=== PATIENT | female | born 1970 | race Caucasian/White ===

== ENCOUNTER 2016-05-11 10:07 | Emergency (ER) | payer BC ==
[2016-05-11 11:18] VITALS: BP 127/81
--- NOTE | 2016-05-11 11:35 | UC ---
Complaint Female HPI - HPI Summary HPI Summary: complaint of pain with urination that started yesterday today noticed some blood in her urine this morning increase in frequency and urgency had ketones in her urine this morning BS has been low recently-glucose was 130 today hasn't taken any medication for symptoms denies fever back pain or abdominal pain - History Of Current Complaint Chief Complaint: UCGU Stated Complaint: URINARY COMPLAINT-DIABETIC Time Seen by Provider: 05/11/16 11:27 Hx Obtained From: Patient Hx Last Menstrual Period: 03/10/1999 - Allergies/Home Medications Allergies/Adverse Reactions: Allergies Allergy/AdvReac Type Severity Reaction Status Date / Time Ciprofloxacin [From Cipro] Allergy Intermediate Hives Verified 05/11/16 11:18 Penicillins Allergy Intermediate Hives Verified 05/11/16 11:18 PMH/Surg Hx/FS Hx/Imm Hx Previously Healthy: No - controlled DM Endocrine History Of: Reports: Diabetes - type I, Thyroid Disease - thyroidectomy for cancer., Hypothyroidism - S/P THYROIDECTOMY DUE TO CANCER Denies: Hyperthyroidism, Dyslipidemia Cardiovascular History Of: Denies: Cardiac Disorders, Hypertension, Pacemaker/ICD, Myocardial Infarction , Congestive Heart Failure, Atrial Fibrillation, Deep Vein Thrombosis, Bleeding Disorders Respiratory History Of: Denies: COPD, Asthma, Bronchitis, Pneumonia, Pulmonary Embolism GI/ History Of: Denies: Gastroesophageal Reflux, Ulcer, Gastrointestinal Bleed, Gall Bladder Disease, Kidney Stones, Diverticulitis, Renal Disease, Urosepsis Neurological History Of: Reports: Migraine - PAST Denies: TIA, CVA, Dementia, Seizures Psychological History Of: Reports: Depression - ON MEDS Denies: Anxiety, Bipolar Disorder, Schizophrenia, Post Traumatic Stress Disorder Cancer History Of: Denies: Lung Cancer, Colorectal Cancer, Breast Cancer, Prostate Cancer, Cervical Cancer Other History Of: Negative For: HIV, Hepatitis B, Hepatitis C, Anticoagulant Therapy - Surgical History Surgical History: Yes Surgery Procedure, Year, and Place: L5 S1 Micro Diskectomy, 2006, 2012 [facility]. Thyroidectomy, 2008, [place]. Hysterectomy, 1999, [place], TOTAL OF 4 BACK SURGERIES - Family History Known Family History: Positive: None, Cardiac Disease, Hypertension, Diabetes - Social History Occupation: Employed Full-time Lives: With Family Alcohol Use: Rare Substance Use Type: None Smoking Status (MU): Former Smoker Type: Cigarettes Amount Used/How Often: 1/2 ppd Length of Time of Smoking/Using Tobacco: quit in 1999 Have You Smoked in the Last Year: No When Did the Patient Quit Smoking/Using Tobacco: 02/08/16 Household Exposure Type: Cigarettes Review of Systems Constitutional: Negative Skin: Negative Eyes: Negative ENT: Negative Respiratory: Negative Cardiovascular: Negative Gastrointestinal: Negative Genitourinary: Dysuria, Hematuria, Frequency, Urgency Motor: Negative Neurovascular: Negative Musculoskeletal: Negative Neurological: Negative Psychological: Negative All Other Systems Reviewed And Are Negative: Yes Physical Exam Triage Information Reviewed: Yes Appearance: No Pain Distress, Well-Nourished Vital Signs: Initial Vital Signs Temp 99.4 F 05/11/16 11:12 Pulse 111 05/11/16 11:12 Resp 16 05/11/16 11:12 BP 127/81 05/11/16 11:12 Pulse Ox 98 05/11/16 11:12 Vital Signs Reviewed: Yes Eyes: Positive: Conjunctiva Clear ENT: Positive: Pharynx normal, Pharyngeal erythema, Nasal congestion Neck: Positive: No Lymphadenopathy Respiratory: Positive: Lungs clear, Normal breath sounds, No respiratory distress Cardiovascular: Positive: No Murmur, Pulses Normal, Tachycardia Abdomen Description: Positive: Nontender, No Organomegaly, Soft. Negative: CVA Tenderness (R), CVA Tenderness (L), Distended, Guarding Bowel Sounds: Positive: Present Musculoskeletal: Positive: No Edema Neurological: Positive: Alert Psychological Exam: Normal Skin Exam: Normal Complaint Female Dx - Course Course Of Treatment: exam completed. will treat for UTI with closes PCP followup d/t DM- glucose in urine but pt is on invokana - Differential Dx/Diagnosis Differential Diagnosis/HQI/PQRI: Ureteral Stone, Urinary Tract Infection Provider Diagnoses: UTI Discharge - Discharge Plan Condition: Stable Disposition: HOME Prescriptions: Phenazopyridine TAB* [Pyridium TAB*] 100 mg PO TID #9 tab Sulfamethox/Trimethoprim DS* [Bactrim DS 800/160 TAB*] 1 tab PO BID #10 tab Patient Education Materials: Urinary Tract Infection in Women (ED) Referrals: Gelacio Wiseman MD [Primary Care Provider] - Additional Instructions: Start antibiotic and pyridium as directed Increase fluids and rest Take acetaminophen for fever or pain please make followup appt with your primary care physician in 2-3 days for recheck of your condition Please review your discharge instructions. If your symptoms do not improve please call your primary care provider or return to urgent care
== END 2016-05-11 11:47 | disposition home or self-care (01) ==
LOC: UCCORT 10:07
DX: N39.0 Urinary tract infection, site not specified (principal); E10.9 Type 1 diabetes mellitus without complications; Z88.1 Allergy status to other antibiotic agents; Z88.0 Allergy status to penicillin; Z87.891 Personal history of nicotine dependence
CPT/HCPCS: 87086; 99212; G0463

== ENCOUNTER 2016-11-04 14:13 | Emergency (ER) | payer BC ==
[2016-11-04 14:30] VITALS: BP 164/98
[2016-11-04] MEDS ORDERED: Aspirin Low Dose CHEW TAB* 81 MG PO ONE (14:32)
[2016-11-04] MEDS ORDERED: NS 0.9% 1000 ML* 1,000 ML IV ONE (14:32)
[2016-11-04] MEDS ORDERED: Aspirin Low Dose CHEW TAB* 81 MG ONE (14:35)
--- NOTE | 2016-11-04 14:40 | UC ---
Zahira Gautam Alfonso, scribed for Britton Aguilar MD on 11/04/16 at 1433 . Dizzy HPI HPI Summary: This patient is a 46 year old F presenting to [facility] with a chief complaint of dizziness since last night. The CC is described as lightheadedness. The patient rates the current pain 0/10 in severity. Symptoms aggravated by exertion. Symptoms alleviated by nothing. Patient reports CP (tightness), SOB, calf pain ( left), recent weight loss, and syncope (last night). She walked 5 miles yesterday. PMHx of DM type 1. Patients medications reviewed this visit. - History Of Current Complaint Stated Complaint: dizziness Hx Obtained From: Patient Onset/Duration: Sudden Onset, Lasting Days, Still Present Timing: Constant Severity Initially: Moderate Severity Currently: Moderate Pain Intensity: 0 Pain Scale Used: 0-10 Numeric Character: Lightheaded Aggravating Factor(s): Exertion Alleviating Factor(s): Nothing Associated Signs And Symptoms: Positive: Chest Pain, SOB - Allergies/Home Medications Allergies/Adverse Reactions: Allergies Allergy/AdvReac Type Severity Reaction Status Date / Time Ciprofloxacin [From Cipro] Allergy Intermediate Hives Verified 11/04/16 14:21 Penicillins Allergy Intermediate Hives Verified 11/04/16 14:21 PMH/Surg Hx/FS Hx/Imm Hx Endocrine History: Diabetes - type 1 Other History Of: Negative For: HIV, Hepatitis B, Hepatitis C, Anticoagulant Therapy - Surgical History Surgical History: Yes Surgery Procedure, Year, and Place: L5 S1 Micro Diskectomy, 2006, 2011 [facility]. Thyroidectomy, 2008, [place]. Hysterectomy, 1999, [place], TOTAL OF 4 BACK SURGERIES - Family History Known Family History: Positive: Cardiac Disease, Hypertension, Diabetes - Social History Alcohol Use: Rare Substance Use Type: None Smoking Status (MU): Current Some Day Smoker Type: Cigarettes Amount Used/How Often: 1/2 ppd Length of Time of Smoking/Using Tobacco: quit in 1999 Have You Smoked in the Last Year: No When Did the Patient Quit Smoking/Using Tobacco: 02/08/16 Household Exposure Type: Cigarettes Review of Systems Respiratory: Shortness Of Breath Cardiovascular: Chest Pain Gastrointestinal: Other - Recent weight loss Musculoskeletal: Other: - Calf pain (left) Neurological: Other - Dizziness and syncope All Other Systems Reviewed And Are Negative: Yes Physical Exam Triage Information Reviewed: Yes Vital Signs: Initial Vital Signs Temp 98.6 F 11/04/16 14:23 Pulse 110 11/04/16 14:23 Resp 18 11/04/16 14:23 BP 164/98 11/04/16 14:23 Pulse Ox 100 11/04/16 14:23 Vital Signs Reviewed: Yes - Additional Comments The patient is well-nourished in no acute distress and in no acute pain. The skin is warm and dry and skin color reflects adequate perfusion. HEENT: The head is normocephalic and atraumatic. The pupils are equal and reactive. The conjunctivae are clear and without drainage. Nares are patent and without drainage. Mouth reveals moist mucous membranes and the throat is without erythema and exudate. The external ears are intact. The ear canals are patent and without drainage. The tympanic membranes are intact. Neck is supple with full range of motion and non-tender. There are no carotid bruits. There is no neck vein distension. Respiratory: Chest is non-tender. Lungs are clear to auscultation and breath sounds are symmetrical and equal. Cardiovascular: Heart is tachycardic. There is no murmur or rub auscultated. Pulses are symmetrical and equal. Abdomen: The abdomen is soft and non-tender. Musculoskeletal: There is no back pain noted. Extremities are non-tender with full range of motion. There is good capillary refill. There is no calf tenderness elicited. Left calf is slightly larger than right calf. Neurological: Patient is alert and oriented to person, place and time. The patient has symmetrical motor strength in all four extremities. Cranial nerves are grossly intact. Psychiatric: The patient has an appropriate affect. Diagnostics - EKG Cardiac Rate: Tachycardia - BPM 106 Cardiac Rhythm: Sinus: Normal - 1409. Sinus Tach. Flipped T-waves in V2-V3 new from 09/03/14. Dizzy Course/Dx - Course Course Of Treatment: This patient is a 46 year old F presenting to [facility] with a chief complaint of dizziness since last night. The CC is described as lightheadedness. The patient rates the current pain 0/10 in severity. Symptoms aggravated by exertion. Symptoms alleviated by nothing. Patient reports CP ( tightness), SOB, calf pain (left), recent weight loss, and syncope (last night) . She walked 5 miles yesterday. PMHx of DM type 1. Patients medications reviewed this visit. An EKG reveals Sinus tachycardia. She is tachycardia with subtle changes from prior EKG. She has CP and dizziness. She has FHx of CAD. Patient will be transferred by ambulance to [facility] with follow up from ED physician. The patient is agreeable with this plan. - Differential Dx/Diagnosis Differential Diagnosis/HQI/PQRI: Anxiety, Coronary Artery Disease, Dysrhythmia, Hypovolemia, Other - pe, mi, hyperglycemia Provider Diagnoses: chest pain, sob, hyperglycemia Discharge - Discharge Plan Condition: Guarded Disposition: TRANS HIGHER LVL OF CARE FAC Discharge Disposition Comment: [facility] [place] [facility]Y [facility]PT BY AMBULANCE. Referrals: Gelacio Wiseman MD [Primary Care Provider] - The documentation as recorded by the Zahira thornton Alfonso accurately reflects the service I personally performed and the decisions made by me, Britton Aguilar MD.
== END 2016-11-04 15:05 | disposition short-term general hospital (02) ==
LOC: UCEAST 14:13
DX: R07.9 Chest pain, unspecified (principal); R06.02 Shortness of breath; E10.65 Type 1 diabetes mellitus with hyperglycemia; Z88.3 Allergy status to other anti-infective agents; Z88.0 Allergy status to penicillin; Z87.891 Personal history of nicotine dependence
CPT/HCPCS: 93005; 96360; 99213; A9270-GY; G0463

== ENCOUNTER 2016-11-04 15:30 | Emergency (ER) | payer BC ==
[2016-11-04] MEDS ORDERED: NS 0.9% 1000 ML* 1,000 ML IV ONE (17:15)
[2016-11-04 17:34] LABS: Hematocrit 44 % (35-47); Hemoglobin 14.4 g/dl (12.0-16.0); Mean Corpuscular HGB Conc 32 g/dl (31-36); Mean Corpuscular Hemoglobin 29 pg (27-31); Mean Corpuscular Volume 88 fL (80-97); Mean Platelet Volume 10 um3 (7.4-10.4); Red Blood Count 5.03 10^6/ul (4.0-5.4); Red Cell Distribution Width 13 % (10.5-15); White Blood Count 9.7 10^3/ul (3.5-10.8)
[2016-11-04 17:37] LABS: Urine Bilirubin Negative (Negative); Urine Glucose 3+(>=500 mg/dL) (Negative); Urine Nitrite Negative (Negative)
[2016-11-04 17:48] LABS: ALT 18 U/L (7-52); AST 17 U/L (13-39); Albumin 4.2 g/dL (3.2-5.2); Alkaline Phosphatase 130 U/L (34-104); Anion Gap 7 mmol/L (2-11); BUN/Creatinine Ratio 26.2 (8-20); Blood Urea Nitrogen 22 mg/dL (6-24); C Reactive Protein 4.11 mg/L (< 5.00); CO2 Carbon Dioxide 26 mmol/L (22-32); Calcium 10.3 mg/dL (8.6-10.3); Chloride 100 mmol/L (101-111); Creatine Kinase 124 U/L (10-223); EGFR African American 93.1 (>60); EGFR Non-African American 72.4 (>60); Globulin 2.9 g/dL (2-4); Glucose 177 mg/dL (70-100); Lipase 26 U/L (11.0-82.0); Potassium 3.7 mmol/L (3.5-5.0); Sodium 133 mmol/L (133-145); Total Protein 7.1 g/dL (6.4-8.9)
[2016-11-04 17:57] LABS: TSH (Thyroid Stimulating Horm) < 0.03 mcIU/mL (0.34-5.60)
--- NOTE | 2016-11-04 18:11 | RAD ---
Indication: Lightheadedness. Single frontal view of the chest performed at 1725 hours was reviewed. Comparison is made with previous exam dated February 06, 2012. No mediastinal shift is noted. Heart is of normal size and configuration. Lung hudson appear clear. IMPRESSION: NO ACTIVE CARDIOPULMONARY DISEASE IS NOTED.
[2016-11-04] MEDS ORDERED: Ibuprofen TAB* 600 MG PO ONE (18:36)
[2016-11-04 19:35] VITALS: BP 112/70
--- NOTE | 2016-11-04 19:39 | ED ---
Lianna Gautam Thomas, scribed for Dru Ann MD on 11/04/16 at 1650 . Dizziness - HPI Summary HPI Summary: The pt is a 46 y/o F [place] [facility] c/o intermittent dizziness that began yesterday. Each episode lasts 20-30 seconds. She had a few episodes of dizziness today. The dizziness is characterized as near-syncope. The dizziness is aggravated and alleviated by nothing. There is no known factor that causes this dizziness. Pt additionally c/o bilateral temporal NIX (4/10), palpitations characterized as racing heartbeat, chest congestion. The patient has treated the NIX with ibuprofen prior to arrival. On exertion, the patient also notes chest pressure, although she denies CP in the ED. Pt denies N/V/D, rhinorrhea, cough, dysuria, hematuria, flank pain, abd pain, and SOB. She reports that her blood glucose measurements in the last couple of days have been pretty good. She has been able to drink as per normal. She is normally 120/80, but at initial triage her BP is 168/90. - History Of Current Complaint Chief Complaint: EDDizziness Stated Complaint: CHEST PAIN/DIZZINESS Time Seen by Provider: 11/04/16 16:37 Hx Obtained From: Patient Onset/Duration: Still Present Timing: Intermittent Episode Lasting - 20-30 seconds Character: Lightheaded - near-syncope Aggravating Factor(s): Nothing Alleviating Factor(s): Nothing Associated Signs And Symptoms: Positive: Palpitations - racing heart, Other: - POS: bilateral temporal NIX (4/10), chest congestion, "chest pressure" on exertion; NEG: rhinorrhea, cough, dysuria, hematuria, flank pain, abd pain. Negative: Nausea, Vomiting, Diarrhea, SOB, Fever - Allergies/Home Medications Allergies/Adverse Reactions: Allergies Allergy/AdvReac Type Severity Reaction Status Date / Time Ciprofloxacin [From Cipro] Allergy Intermediate Hives Verified 11/04/16 14:21 Penicillins Allergy Intermediate Hives Verified 11/04/16 14:21 PMH/Surg Hx/FS Hx/Imm Hx Previously Healthy: No Endocrine/Hematology History: Reports: Hx Diabetes - type I, Hx Thyroid Disease - THYROID CANCER Denies: Hx Anticoagulant Therapy Cardiovascular History: Denies: Hx Congestive Heart Failure, Hx Deep Vein Thrombosis, Hx Hypertension , Hx Myocardial Infarction, Hx Pacemaker/ICD, Other Cardiovascular Problems/ Disorders Respiratory History: Denies: Hx Asthma, Hx Chronic Obstructive Pulmonary Disease (COPD), Hx Lung Cancer, Hx Pneumonia, Hx Pulmonary Embolism, Other Respiratory Problems/ Disorders GI History: Denies: Hx Gall Bladder Disease, Hx Gastrointestinal Bleed, Hx Ulcer, Hx Urosepsis, Other GI Disorders History: Denies: Hx Kidney Stones, Hx Renal Disease Sensory History: Reports: Hx Contacts or Glasses - GLASSES Denies: Hx Hearing Aid Opthamlomology History: Reports: Hx Contacts or Glasses - GLASSES Neurological History: Reports: Hx Migraine - PAST Denies: Hx Dementia, Hx Seizures, Hx Transient Ischemic Attacks (TIA), Other Neuro Impairments/Disorders Psychiatric History: Reports: Hx Depression - ON MEDS Denies: Hx Anxiety, Hx Panic Disorder, Hx Schizophrenia, Hx Bipolar Disorder - Cancer History Cancer Type, Location and Year: thyroid 2009 - Surgical History Surgery Procedure, Year, and Place: L5 S1 Micro Diskectomy, 2006, 2011 [facility] Thyroidectomy, 2008, [place]. Hysterectomy, 1999, [place], TOTAL OF 4 BACK SURGERIES Hx Anesthesia Reactions: No Infectious Disease History: No Infectious Disease History: Denies: Hx Clostridium Difficile, Hx Hepatitis, Hx Human Immunodeficiency Virus (HIV), Hx of Known/Suspected MRSA, Hx Shingles, Hx Tuberculosis, Hx Known/ Suspected VRE, Hx Known/Suspected VRSA, History Other Infectious Disease, Traveled Outside the [place] in Last 30 Days - Family History Known Family History: Positive: Cardiac Disease, Hypertension, Diabetes - Social History Alcohol Use: Rare Substance Use Type: Reports: None Smoking Status (MU): Current Some Day Smoker Type: Cigarettes Amount Used/How Often: 1/2 ppd Length of Time of Smoking/Using Tobacco: quit in 1999 Have You Smoked in the Last Year: No Review of Systems Negative: Fever, Chills Positive: Palpitations - racing hearbeat, Other - POS: "chest pressure" on exertion Positive: Other - POS: chest congestion Neurological: Other - POS: dizziness characterized as near-syncope Positive: Headache - bilateral temporal, 4/10 All Other Systems Reviewed And Are Negative: Yes Physical Exam Vital Signs On Initial Exam: Initial Vitals Temp Pulse Resp BP Pulse Ox 97.9 F 95 16 168/90 97 11/04/16 15:39 11/04/16 15:39 11/04/16 15:39 11/04/16 15:39 11/04/16 15:39 - [place] Coma Scale Coma Scale Total: 15 Diagnostics - Vital Signs Vital Signs Temp Pulse Resp BP Pulse Ox 11/04/16 16:00 91 13 149/78 94 11/04/16 15:41 98 15 97 11/04/16 15:39 97.9 F 95 16 168/90 97 - Laboratory Lab Results: Lab Results 11/04/16 Range/Units 16:20 POC Glucose (mg/dL) 58 L (70-100) mg/dL Result Diagrams: 11/04/16 14:45 11/04/16 14:45 Lab Statement: Any lab studies that have been ordered have been reviewed, and results considered in the medical decision making process. - Radiology CXR Xray Interpretation: No Acute Changes - no active cardiopulmonary disease is noted Radiology Interpretation Completed By: Radiologist Dizzy Course/Dx - Course Assessment/Plan: The pt is a 46 y/o F [place] [facility] c/o intermittent dizziness that began yesterday. Each episode lasts 20-30 seconds. She had a few episodes of dizziness today. The dizziness is characterized as near-syncope. The dizziness is aggravated and alleviated by nothing. There is no known factor that causes this dizziness. Pt additionally c/o bilateral temporal NIX (06/17), palpitations characterized as racing heartbeat, chest congestion. The patient has treated the NIX with ibuprofen prior to arrival. On exertion, the patient also notes chest pressure, although she denies CP in the ED. Pt denies N/V/D, rhinorrhea, cough, dysuria, hematuria, flank pain, abd pain, and SOB. She reports that her blood glucose measurements in the last couple of days have been pretty good. She has been able to drink as per normal. She is normally 120/80, but at initial triage her BP is 168/90. In the ED course the patient was given ibuprofen and IV fluids. Bloodwork shows chloride 100, Glucose 177, AlkPhos 130, CKMB 6.4, TSH less than 0.03. UA shows 3+ glucose. CXR reveals no active cardiopulmonary disease. ED physician has reviewed this radiology report and agrees. DISCUSSED RESULTS WITH PATIENT TO INCLUDE LOW TSH. PATIENT THEN TOLD ME SHE HAS BEEN TAKING EXTRA LEVOTHYROXINE; SHE HAD RUN OUT OF LEVOTHYROXINE AND WHEN SHE SINCE SHE GOT THE RX FILLED, SHE HAS BEEN TAKING DOUBLE THE DOSAGE. SHE WILL RETURN TO HER NORMAL DOSING AND F/U WITH HER PMD. NO CRITICAL CARE TIME. - Diagnoses Provider Diagnoses: Hypothyroidism due to medication Discharge - Discharge Plan Condition: Stable Disposition: HOME Patient Education Materials: Hyperthyroidism (ED) Referrals: Gelacio Wiseman MD [Primary Care Provider] - Additional Instructions: FOLLOW UP WITH YOUR DOCTOR. BECAUSE OF YOUR HYPERTHYROIDISM, TAKE THE LEVOTHYROXINE DIRECTED. RETURN TO THE EMERGENCY DEPARTMENT FOR ANY WORSENING OF YOUR CONDITION OR QUESTIONS OR CONCERNS. The documentation as recorded by the Lianna thornton Thomas accurately reflects the service I personally performed and the decisions made by me, Dru Ann MD.
== END 2016-11-04 19:35 | disposition home or self-care (01) ==
LOC: ED 15:30
DX: E03.9 Hypothyroidism, unspecified (principal); R00.2 Palpitations; R51 Headache; R42 Dizziness and giddiness; E10.8 Type 1 diabetes mellitus with unspecified complications; Z72.0 Tobacco use
CPT/HCPCS: 36415; 71010; 80053; 81003; 82550; 82553; 83690; 83735; 84443; 84484; 85025; 85379; 85610; 85730; 86140; 99284; A9270-GY

== ENCOUNTER 2017-04-21 16:49 | Emergency (ER) | payer BC ==
[2017-04-21 17:27] LABS: ABS Basophils 0 10^3/ul (0-0.2); ABS Eosinophils 0.1 10^3/ul (0-0.6); ABS Lymphocytes 2.9 10^3/ul (1.0-4.8); ABS Monocytes 0.5 10^3/ul (0-0.8); ABS Neutrophils 2.9 10^3/ul (1.5-7.7); ABS Nucleated RBC 0 10^3/ul; Hematocrit 40 % (35-47); Hemoglobin 12.9 g/dl (12.0-16.0); Lymphocyte % 44.8 % (25-47); Mean Corpuscular HGB Conc 33 g/dl (31-36); Mean Corpuscular Hemoglobin 29 pg (27-31); Mean Corpuscular Volume 89 fL (80-97); Mean Platelet Volume 9 um3 (7.4-10.4); Nucleated Red Blood Cells % 0; Platelet Count 221 10^3/ul (150-450); Red Blood Count 4.45 10^6/ul (4.0-5.4); Red Cell Distribution Width 13 % (10.5-15); White Blood Count 6.4 10^3/ul (3.5-10.8)
[2017-04-21] MEDS ORDERED: Ketorolac INJ* 30 MG/ML 1 ML VIAL IV PUSH ONE (17:38)
[2017-04-21 17:41] LABS: EGFR Non-African American 86.1 (>60)
--- NOTE | 2017-04-21 18:22 | RAD ---
indication: Headache and nausea after a sledding accident 2 days earlier COMPARISON: None A CT scan of the brain and c-spine was performed without intravenous contrast enhancement. Contiguous axial sections were obtained from the lung apices through the vertex. BRAIN: The ventricles, cisterns and sulci are within normal limits. No significant focal abnormality or mass effect is seen. The blackwood-white differentiation is adequately maintained. There is no intracranial hemorrhage. No significant bony abnormality is present. The mastoid air cells are appropriately aerated. The visualized paranasal sinuses are clear. C-SPINE: The sagittal view images there is straightening of the normal cervical lordosis. The facet joints and vertebral bodies are otherwise appropriately aligned. Mild degenerative change includes mild loss of intervertebral disc height at the lower cervical spine. The dens is intact. There is no atlantodental widening. No acute fracture or dislocation is seen. There is no hyperdense material in the cervical canal to indicate hemorrhage. The visualized musculature and soft tissues are normal. There is no gross lymphadenopathy visualized. The visualized portion of the lung apices are clear. IMPRESSION: 1. No calvarial fracture or acute intracranial hemorrhage. 2. Mild degenerative changes of the cervical spine without acute fracture or dislocation.
--- NOTE | 2017-04-21 18:42 | RAD ---
INDICATION: Chest pain after sledding accident COMPARISON: Chest x-ray dated November 04, 2016 TECHNIQUE: PA and lateral views of the chest were obtained. FINDINGS: The heart and mediastinum are normal in size and contour. The lungs are grossly clear. There is no evidence of large pleural effusion. Visualized bones are normal for the patient's age. There is no radiographic evidence of free air beneath the diaphragm IMPRESSION: No radiographic evidence of acute cardiopulmonary disease.
[2017-04-21 18:56] VITALS: BP 137/52
--- NOTE | 2017-04-23 08:41 | ED ---
Kiet Gautam Angela, scribed for David Delacruz MD on 04/21/17 at 1701 . Head Injury - HPI Summary HPI Summary: This pt is a 47 y/o female [place] [facility] [place] headache and neck pain s/p head strike 2 days ago. Pt reports that she was sledding 2 days ago when she crashed at the bottom of the hill and folded over hitting her head. Denies LOC. She immediately felt nauseous and dizzy. That night pt felt sore. Yesterday, pt states she was nauseous, dizziness, and had a headache. Today, pt reports she vomited while at work. She c/o headache and neck pain. She rates her headache 8/ 10 in severity. Pt describes neck pain on the lateral sides. She notes she takes ibuprofen with relief, last dose was at 12:00 today. PMHx: type 1 DM, thyroid CA, s/p hysterectomy. Allergies: ciprofloxacin and penicillin. - History Of Current Complaint Chief Complaint: EDHeadInjury Stated Complaint: CHEST WALL & NECK PAIN Time Seen by Provider: 04/21/17 16:57 Hx Obtained From: Patient Hx Last Menstrual Period: 03/10/1999 Mechanism Of Injury: Direct Blow Onset/Duration: Started Hours Ago, Traumatic, Still Present Onset of Pain: Hours Severity Initially: Severe Pain Intensity: 8 Pain Scale Used: 0-10 Numeric Location of Head Injury: Diffuse Location: Diffuse Aggravating Factor(s): Other: - nothing Alleviating Factor(s): OTC Medications` - ibuprofen Associated Signs And Symptoms: Neck Pain, Nausea, Vomiting, Headache, Other: - dizziness - Allergies/Home Medications Allergies/Adverse Reactions: Allergies Allergy/AdvReac Type Severity Reaction Status Date / Time MS Ciprofloxacin [From Cipro] Allergy Intermediate Hives Verified 11/04/16 14:21 MS Penicillins [Penicillins] Allergy Intermediate Hives Verified 11/04/16 14:21 PMH/Surg Hx/FS Hx/Imm Hx Endocrine/Hematology History: Reports: Hx Diabetes - type I, Hx Thyroid Disease - THYROID CANCER Denies: Hx Anticoagulant Therapy Cardiovascular History: Denies: Hx Congestive Heart Failure, Hx Deep Vein Thrombosis, Hx Hypertension , Hx Myocardial Infarction, Hx Pacemaker/ICD, Other Cardiovascular Problems/ Disorders Respiratory History: Denies: Hx Asthma, Hx Chronic Obstructive Pulmonary Disease (COPD), Hx Lung Cancer, Hx Pneumonia, Hx Pulmonary Embolism, Other Respiratory Problems/ Disorders GI History: Denies: Hx Gall Bladder Disease, Hx Gastrointestinal Bleed, Hx Ulcer, Hx Urosepsis, Other GI Disorders History: Denies: Hx Kidney Stones, Hx Renal Disease Sensory History: Reports: Hx Contacts or Glasses - GLASSES Denies: Hx Hearing Aid Opthamlomology History: Reports: Hx Contacts or Glasses - GLASSES Neurological History: Reports: Hx Migraine - PAST Denies: Hx Dementia, Hx Seizures, Hx Transient Ischemic Attacks (TIA), Other Neuro Impairments/Disorders Psychiatric History: Reports: Hx Depression - ON MEDS Denies: Hx Anxiety, Hx Panic Disorder, Hx Schizophrenia, Hx Bipolar Disorder - Cancer History Cancer Type, Location and Year: thyroid 2009 - Surgical History Surgery Procedure, Year, and Place: L5 S1 Micro Diskectomy, 2006, 2012 [facility] Thyroidectomy, 2008, [place]. Hysterectomy, 2001, [place], TOTAL OF 4 BACK SURGERIES Hx Anesthesia Reactions: No Infectious Disease History: No Infectious Disease History: Denies: Hx Clostridium Difficile, Hx Hepatitis, Hx Human Immunodeficiency Virus (HIV), Hx of Known/Suspected MRSA, Hx Shingles, Hx Tuberculosis, Hx Known/ Suspected VRE, Hx Known/Suspected VRSA, History Other Infectious Disease, Traveled Outside the [place] in Last 30 Days - Family History Known Family History: Positive: Cardiac Disease, Hypertension, Diabetes - Social History Alcohol Use: Rare Substance Use Type: Reports: None Smoking Status (MU): Light Every Day Tobacco Smoker Type: Cigarettes Amount Used/How Often: 1/2 ppd Length of Time of Smoking/Using Tobacco: quit in 1999 Have You Smoked in the Last Year: No Review of Systems Negative: Fever, Chills Eyes: Negative ENT: Negative Positive: Vomiting, Nausea Musculoskeletal: Other - neck pain Neurological: Other - dizziness Positive: Headache All Other Systems Reviewed And Are Negative: Yes Physical Exam - Summary Physical Exam Summary: VITAL SIGNS: Reviewed. GENERAL: Patient is a well-developed and nourished female who is lying comfortable in the stretcher. Patient is not in any acute respiratory distress. HEAD AND FACE: No signs of trauma. No ecchymosis, hematomas or skull depressions. No sinus tenderness. EYES: PERRLA, EOMI x 2, No injected conjunctiva, no nystagmus. EARS: Hearing grossly intact. Ear canals and tympanic membranes are within normal limits. MOUTH: Oropharynx within normal limits. NECK: Supple, trachea is midline, no adenopathy, no JVD, no carotid bruit. Pt is on a c-collar. CHEST: Symmetric, no tenderness at palpation LUNGS: Clear to auscultation bilaterally. No wheezing or crackles. CVS: Regular rate and rhythm, S1 and S2 present, no murmurs or gallops appreciated. ABDOMEN: Soft, non-tender. No signs of distention. No rebound no guarding, and no masses palpated. Bowel sounds are normal. EXTREMITIES: FROM in all major joints, no edema, no cyanosis or clubbing. NEURO: Alert and oriented x 3. No acute neurological deficits. Speech is normal and follows commands. SKIN: Dry and warm GCS: 15 Triage Information Reviewed: Yes Vital Signs On Initial Exam: Initial Vitals Temp Pulse Resp BP Pulse Ox 97.7 F 87 19 158/86 100 04/21/17 16:49 04/21/17 16:49 04/21/17 16:49 04/21/17 16:49 04/21/17 16:49 Vital Signs Reviewed: Yes - [place] Coma Scale Best Eye Response: 4 - Spontaneous Best Motor Response: 6 - Obeys Commands Best Verbal Response: 5 - Oriented Coma Scale Total: 15 Diagnostics - Vital Signs Vital Signs Temp Pulse Resp BP Pulse Ox 04/21/17 16:49 97.7 F 87 19 158/86 100 - Laboratory Result Diagrams: 04/21/17 17:14 04/21/17 17:14 Lab Statement: Any lab studies that have been ordered have been reviewed, and results considered in the medical decision making process. - Radiology Chest XR Xray Interpretation: No Acute Changes - No radiographic evidence of acute cardiopulmonary disease. Dr. Delacruz has reviewed this radiology report. Radiology Interpretation Completed By: Radiologist - CT brain CT CT Interpretation: No Acute Changes - IMPRESSION: 1. No calvarial fracture or acute intracranial hemorrhage. 2. Mild degenerative changes of the cervical spine without acute fracture or dislocation. Dr. Delacruz has reviewed this radiology report. CT Interpretation Completed By: Radiologist Cervical spine CT CT Interpretation: No Acute Changes - IMPRESSION: 1. No calvarial fracture or acute intracranial hemorrhage. 2. Mild degenerative changes of the cervical spine without acute fracture or dislocation. Dr. Delacruz has reviewed this radiology report. CT Interpretation Completed By: Radiologist Head Injury Course/Dx Assessment/Plan: This pt is a 47 y/o female [place] [facility] [place] headache and neck pain s/p head strike 2 days ago. Pt reports that she was sledding 2 days ago when she crashed at the bottom of the hill and folded over hitting her head. Denies LOC. She immediately felt nauseous and dizzy. That night pt felt sore. Yesterday, pt states she was nauseous, dizziness, and had a headache. Today, pt reports she vomited while at work. She c/o headache and neck pain. She rates her headache 8/10 in severity. Pt describes neck pain on the lateral sides. She notes she takes ibuprofen with relief, last dose was at 12:00 today. PMHx: type 1 DM, thyroid CA, s/p hysterectomy. Allergies: ciprofloxacin and penicillin. Test results without any significant abnormalities. Head CT: 1. No calvarial fracture or acute intracranial hemorrhage. 2. Mild degenerative changes of the cervical spine without acute fracture or dislocation. Cervical spine CT: 1. No calvarial fracture or acute intracranial hemorrhage. 2. Mild degenerative changes of the cervical spine without acute fracture or dislocation. Chest XR: No radiographic evidence of acute cardiopulmonary disease. Pt is hemodynamically stable, alert and oriented x3. Pt was given Toradol for the headache and all her symptoms improved. Pt will be discharged to home with follow up from her PCP. She is instructed to return to the ED for any worsening symptoms. The pt is ambulating out of the ER. - Diagnoses Provider Diagnoses: Head contusion, Neck pain Discharge - Discharge Plan Condition: Stable Disposition: HOME Prescriptions: HYDROcodone/ACETAMIN 5-325 MG* [[place] 5-325 TAB*] 1 tab PO Q6H PRN #10 tab MDD 4 PRN Reason: Pain Ondansetron TAB* [Zofran 4 MG Tab*] 4 mg PO Q6H PRN #10 tab PRN Reason: Nausea Patient Education Materials: Contusion in Adults (ED), Neck Pain (ED) Referrals: Gelacio Wiseman MD [Primary Care Provider] - 3 Days Additional Instructions: Please follow up with your primary care provider. RETURN TO THE ED FOR ANY WORSENING SYMPTOMS. The documentation as recorded by the Kiet thornton Angela accurately reflects the service I personally performed and the decisions made by , David Delacruz MD.
== END 2017-04-21 18:55 | disposition home or self-care (01) ==
LOC: ED 16:49
DX: S00.93XA Contusion of unspecified part of head, initial encounter (principal); M54.2 Cervicalgia; R11.2 Nausea with vomiting, unspecified; R51 Headache; R42 Dizziness and giddiness; E10.9 Type 1 diabetes mellitus without complications; F17.210 Nicotine dependence, cigarettes, uncomplicated; Z85.850 Personal history of malignant neoplasm of thyroid; Z88.0 Allergy status to penicillin; W22.8XXA Striking against or struck by other objects, initial encounter; Y92.9 Unspecified place or not applicable
CPT/HCPCS: 36415; 70450; 71046; 72125; 80053; 85025; 86140; 96374; 99283; J1885

== ENCOUNTER 2017-09-12 07:14 | Day surgery (SDC) | payer BC ==
--- NOTE | 2017-09-08 14:53 | HP ---
PREOPERATIVE HISTORY AND PHYSICAL: DATE OF ADMISSION/OPERATION: 09/12/17 CHIEF COMPLAINT: Triggering and locking of the right middle, index, and ring fingers. HISTORY OF PRESENT ILLNESS: Milvia is a 47-year-old woman, who complains of locking of her right middle finger and pain in the ring and index fingers additionally. This has developed suddenly about 2 months ago, has not improved with rest and conservative measures. She has declined cortisone injection. She is diabetic and presents for trigger finger release of the right index, middle, and ring fingers. PAST MEDICAL HISTORY: Significant for diabetes, hypothyroidism, anxiety, and elevated cholesterol. She has hypothyroidism secondary to treatment for thyroid cancer. PAST SURGICAL HISTORY: Hysterectomy, microdiskectomy, and de Quervain's release. FAMILY HISTORY: Heart disease, hypertension, stroke. SOCIAL HISTORY: She lives with her significant other. 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 She quit smoking 6 months ago. She has 0 to 2 alcoholic beverages per week. She regularly exercises, doing walking. She is right hand dominant. REVIEW OF SYSTEMS: Positive for anxiety. Otherwise, negative for cephalic, cardiovascular, respiratory, gastrointestinal, genitourinary, other musculoskeletal, skin, neurologic, endocrine, and hematologic symptoms. Her diabetes is generally well controlled. Her last hemoglobin A1c was 8.6. PHYSICAL EXAMINATION GENERAL: She is a healthy appearing, very pleasant female in minimal distress at rest. VITAL SIGNS: She is 66.5 inches, 158 pounds. Pulse is 90, blood pressure 132/ 76, and temperature 97.6. HEENT: Exam is unremarkable. She has good range of motion of her neck without pain. No masses are palpated. Her eye movements are concentric. LUNGS: Clear to auscultation, good inspiratory effort. No wheezing. CARDIAC: Regular rate and rhythm without murmur. PERIPHERAL VASCULAR: She has palpable pulses. No peripheral edema. NEUROLOGICAL: She is alert and oriented without focal deficit. EXTREMITIES: She has tenderness at the A1 sam of the index, middle, and ring fingers on the right hand. She can make a fist, when she does, her middle finger locks in flexion. Her skin is intact. Neurovascular function is intact. IMPRESSION: Trigger fingers of the right index, middle, and ring fingers. PLAN: Plan is for trigger finger release, right index, middle, and ring finger. The surgical procedure, risks, and benefits were explained to the patient today and she agrees to proceed. She will use [id number] medication for postop pain control. I will see her back in followup for recheck approximately 10 days postop. [id number]/[facility] #: [id number] JERROD
[~2017-09-12 07:14] MED LIST: Buffered Lidocaine 0.9% SYRIN* 5 ML/SYR SYRINGE INTRADERM ONE
[2017-09-12] MEDS ORDERED: Insulin LISPRO* 1 UNITS UNIT SUBCUT ONE (07:42)
[2017-09-12] MEDS ORDERED: Midazolam* 1 MG/ML 2 ML VIAL (2 MG) ONE (07:54)
[2017-09-12] MEDS ORDERED: fentaNYL* 50 MCG/ML 2 ML VIAL (100 MCG VIAL) ONE (07:54)
[2017-09-12] MEDS ORDERED: Propofol* 10 MG/ML 20 ML BTL IV PUSH ONE ×2 (07:59→09:17)
[2017-09-12] MEDS ORDERED: Lidocaine 1%* 5 ML VIAL ONE (08:01)
[2017-09-12] MEDS ORDERED: Naloxone* 0.4 MG/ML 1 ML VIAL IV PRN (08:39)
[2017-09-12 09:28] VITALS: BP 110/62
[2017-09-12] MEDS ORDERED: Lidocaine 2% PF * 5 ML VIAL ONE (09:34)
--- NOTE | 2017-09-12 22:23 | OP ---
DATE OF OPERATION: 09/12/17 [facility] DATE OF : 66 SURGEON: Oly Ralph MD. ENVIRONMENTAL TEST TECHNICIAN: SILVIA Alcantar. ANESTHESIA: Local MAC. PRE-OP DIAGNOSIS: Trigger fingers of the right index, long, and ring finger. POST-OP DIAGNOSIS: Trigger fingers of the right index, long, and ring finger. OPERATIVE PROCEDURE: Trigger finger release, right index, long, and ring fingers. ESTIMATED BLOOD LOSS: Zero. TOURNIQUET TIME: About 10 minutes. INDICATIONS FOR PROCEDURE: Mivlia is a 47-year-old female with painful locking of her right middle finger and loss of motion of the index and ring fingers. She presents for trigger release of the right index, long, and ring fingers. DESCRIPTION OF PROCEDURE: The patient was brought to the operating room, was given a sedation anesthetic and a local infiltration with 10 mL of 1% plain lidocaine in the palm of her right hand. The skin of her right hand and forearm was prepped and draped in the usual sterile fashion. The hand and forearm were exsanguinated and the tourniquet elevated to 250 mmHg. A transverse incision was made centered over the A1 pulleys of the index, long, and ring fingers of the right hand, dissected bluntly through the subcutaneous tissue down to each A1 sam, which was then incised longitudinally, completely releasing the FDS and FDP tendons which were all in good condition, with only slight abrasion of the ring finger FDS. The wound was irrigated and the skin edges were reapproximated with 4-0 nylon suture. The wounds were dressed with Xeroform, 4x4, Webril, and an Ken wrap. The patient tolerated the procedure well and was brought to the recovery room in good condition. [id number]/[facility] #: [id number] MTDD
== END 2017-09-12 09:48 | disposition home or self-care (01) ==
LOC: OREAST 07:14
PROVIDERS: ATTEND Orthopaedic Surgery
DX: M65.321 Trigger finger, right index finger (principal); M65.331 Trigger finger, right middle finger; M65.341 Trigger finger, right ring finger; E10.9 Type 1 diabetes mellitus without complications; F41.9 Anxiety disorder, unspecified; E78.00 Pure hypercholesterolemia, unspecified; Z85.850 Personal history of malignant neoplasm of thyroid; E89.0 Postprocedural hypothyroidism; Z87.891 Personal history of nicotine dependence
CPT/HCPCS: J2250; J2704; J3010

== ENCOUNTER 2017-11-28 08:39 | Day surgery (SDC) | payer BC ==
--- NOTE | 2017-11-24 20:54 | HP ---
PREOPERATIVE HISTORY AND PHYSICAL: DATE OF SURGERY/ADMISSION: 11/28/17 [facility] ATTENDING SURGEON: Oly Ralph MD * (DICTATED BY SILVIA NELSON) PROCEDURE: Left index, middle, ring trigger finger releases. CHIEF COMPLAINT: Triggering of left index, middle and ring fingers. HISTORY OF PRESENT ILLNESS: This is a 47-year-old female who complains of clicking and triggering in the left index, middle and ring fingers. This has been ongoing for a few months now. It has not improved with rest and conservative measures. She had declined cortisone injection. She recently had trigger finger releases performed on her right hand and did quite well with that. She is interested in now pursuing with the same procedure for her left hand. PAST MEDICAL HISTORY: 1. Diabetes. 2. Hypothyroidism. Her hypothyroidism is secondary to treatment for thyroid cancer. 3. Anxiety. 4. High cholesterol. PAST SURGICAL HISTORY: 1. Hysterectomy. 2. Microdiskectomy. 3. De Quervain's release. 4. Right index, middle and ring finger trigger releases. MEDICATIONS: 1. Humalog mix 75/25, 100 units/mL 8 units twice daily. 2. Levemir 100 units/mL inject 200 units twice daily. 3. Levothyroxine sodium 200 mcg daily. 4. Wellbutrin SR 150 mg twice a day. 5. Xanax 1 mg one-half to 1 tab b.i.d. p.r.n. ALLERGIES: PENICILLIN, reaction unknown. FAMILY HISTORY: Heart disease, hypertension, and stroke. SOCIAL HISTORY: The patient is employed as a vice president payment for financial reporting. She quit smoking approximately 9 months ago. She denies recreational drug use. She drinks alcohol on occasion. REVIEW OF SYSTEMS: Positive for anxiety and hypothyroidism. Otherwise, negative for cephalic, cardiovascular, respiratory, GI, , other musculoskeletal, skin, other neurologic, other endocrine and hematologic symptoms. Infectious Disease: Negative for history of MRSA, hepatitis C, HIV. PHYSICAL EXAMINATION GENERAL: Well-developed, well-nourished 47-year-old female, in no acute distress. VITAL SIGNS: Height 5 feet 6 inches, weight 155 pounds. Pulse rate 72, blood pressure 130/74. HEENT: Normocephalic, atraumatic. Pupils are equal, round, and reactive to light and accommodation. Extraocular movements are intact. Throat is clear. NECK: Supple. No palpable lymph nodes. PULMONARY: Lungs are clear to auscultation bilaterally. No wheezes, rales, or rhonchi. CARDIOVASCULAR: Regular rate and rhythm. S1, S2. No murmurs, rubs, or gallops. No edema. ABDOMEN: Positive bowel sounds. Soft, nontender. NEUROLOGICAL: Alert and oriented x3. Cranial nerves II through XII are intact. Sensation is intact to light touch. MUSCULOSKELETAL: On exam of her left hand, she has tenderness to palpation at the A1 pulleys of the index, middle and ring fingers. She has active triggering in the index and middle fingers. She is able to make a tight fist. Neurovascular function is intact. IMPRESSION: Trigger fingers of the left index, middle and ring fingers. PLAN: The patient is scheduled to undergo a left index, middle and ring trigger finger release with Dr. Ralph on 11/28/17. She will return to the office 10 days postop for followup and suture removal. She will use [id number] medications for postop pain control. SILVIA NELSON [id number]/[facility] #: [id number] JERROD
[2017-11-28] MEDS ORDERED: fentaNYL* 50 MCG/ML 2 ML VIAL (100 MCG VIAL) ONE (09:49)
[2017-11-28] MEDS ORDERED: Lidocaine 2% PF * 5 ML VIAL ONE (09:51)
[2017-11-28] MEDS ORDERED: Propofol* 10 MG/ML 20 ML BTL IV PUSH ONE ×2 (09:51→10:24)
[2017-11-28] MEDS ORDERED: Lidocaine 1% INJ* 10 MG/ML 30 ML SDV ONE (10:05)
[2017-11-28 11:43] VITALS: BP 125/78
--- NOTE | 2017-11-29 05:17 | OP ---
DATE OF OPERATION: 11/28/17 [facility] DATE OF : 66 SURGEON: Oly Ralph MD COMPUTER CLERK: SILVIA Alcantar ANESTHESIA: Local MAC. PRE-OP DIAGNOSIS: Index, long, and ring finger trigger fingers, left hand. POST-OP DIAGNOSIS: Index, long, and ring finger trigger fingers, left hand. OPERATIVE PROCEDURE: Index, long, and ring finger trigger release, left hand. ESTIMATED BLOOD LOSS: Zero. TOURNIQUET TIME: Approximately 15 minutes. INDICATIONS FOR PROCEDURE: Milvia is a 47-year-old female who has locking and triggering of her left hand index, middle, ring fingers. She presents for trigger finger releases. She had the same problem on the right hand, did well with surgery for that. DESCRIPTION OF PROCEDURE: The patient was brought to the operating room, was given a sedation anesthetic and a local infiltration of 10 cc of 1% plain lidocaine in the palm of her right hand. Skin of her right hand and forearm was prepped and draped in the usual sterile fashion. The hand and forearm were exsanguinated and the tourniquet elevated to 250 mmHg. A transverse incision was made centered over the A1 sam of the index, middle, and ring fingers of the left hand, dissected bluntly through the subcutaneous tissue down to the A1 pulleys. Each sam was incised longitudinally completely releasing the flexor tendons. The index finger tendon had some mild abrasion and this was debrided. The other tendons were in good condition. The wound was irrigated and skin edges reapproximated with 4-0 nylon suture. Wound was dressed with Xeroform, 4x4, Webril, and an Ken wrap. The patient tolerated the procedure well, was brought to the recovery room in good condition. [id number]/[facility] #: [id number] MTDD
== END 2017-11-28 11:38 | disposition home or self-care (01) ==
LOC: OREAST 08:39
PROVIDERS: ATTEND Orthopaedic Surgery
DX: M65.322 Trigger finger, left index finger (principal); M65.332 Trigger finger, left middle finger; M65.342 Trigger finger, left ring finger; E11.9 Type 2 diabetes mellitus without complications; Z79.4 Long term (current) use of insulin; E03.9 Hypothyroidism, unspecified; Z85.850 Personal history of malignant neoplasm of thyroid; F41.9 Anxiety disorder, unspecified; E78.00 Pure hypercholesterolemia, unspecified
CPT/HCPCS: J2704; J3010

== ENCOUNTER 2017-12-12 11:09 | Emergency (ER) | payer BC ==
--- OUTSIDE RECORDS SUMMARY | 2017-12-12 11:54 | XMS REPORT ---
:1970 External Reference #:[id number] Author Organization [employer] Address [address] [place] [address] [place] [address] Phone [phone] Care Team Providers Name Role Phone Gelacio Wiseman MD Primary Care Physician Unavailable Payers Type Date Identification Numbers Payment Provider Subscriber Commercial Policy Number: [id number] BS Facets Milvia Bowen PayID: [id number] [address] [address] [place] [address] Problems Description No Information Family History Date Family Member(s) Problem(s) Comments General Heart Disease General Diabetes General Cancer Social History Type Date Description Comments Lives With Alone Occupation financial reporting mgr. ETOH Use Denies alcohol use Smoking Patient has never smoked Exercise Type/Frequency Exercises regularly Allergies, Adverse Reactions, Alerts Date Description Reaction Status Severity Comments 08/17/2015 Penicillin active Medications Medication Date Status Form Strength Qnty SIG Indications Ordering Provider Acetaminophen-C 09/12/ Active Tablets 300-30mg 15tab 1 tab by Oly jay #3 2018 s mouth Ralph, every 4-6 M.D. hours as needed for pain Levemir / Active Solution 100Unit/M QS inject 200 Unknown 0000 L units twice daily Humalog Mix / Active Suspension (75-25)10 8 units sq Unknown 75/25 0000 0Unit/ML twice a day with breakfast and dinner Levothyroxine / Active Tablets 200mcg 1 by mouth Unknown Sodium 0000 every day Wellbutrin SR / Active Tablets ER 150mg 1 by mouth Unknown 0000 12HR twice a day Xanax 00/00/ Active Tablets 1mg take /2 Unknown 0000 to 1 tablet by mouth two times a day as needed maximum daily dose=two tablets Ultracet 08/31/ Hx Tablets 37.5-325m 30tab 1 every 6 Brinda 2016 - g s hours as Shasta, 11/20/ needed for TRANSFER TABLE OPERATOR 2015 pain Vital Signs Date Vital Result Comment 12/08/2017 Height 66 inches 5'6" Body Temperature 97.6 F Pain Level 1 11/17/2017 Height 66 inches 5'6" Heart Rate 72 /min BP Systolic 130 mmHg BP Diastolic 74 mmHg Respiratory Rate 16 /min Body Temperature 97.0 F Pain Level 3 10/13/2017 Height 66 inches 5'6" Heart Rate 94 /min BP Systolic 126 mmHg BP Diastolic 84 mmHg Respiratory Rate 16 /min Body Temperature 97.1 F Pain Level 5 09/22/2017 Height 66 inches 5'6" Weight 155.00 lb BP Systolic 140 mmHg BP Diastolic 84 mmHg Body Temperature 97.8 F BMI (Body Mass Index) 25.0 kg/m2 09/08/2017 Height 66.5 inches 5'6.50" Weight 158.75 lb Heart Rate 90 /min BP Systolic 132 mmHg BP Diastolic 76 mmHg Respiratory Rate 16 /min Body Temperature 97.6 F Pain Level 6 BMI (Body Mass Index) 25.2 kg/m2 11/22/2015 Height 66.5 inches 5'6.50" Weight 191.00 lb Respiratory Rate 16 /min Pain Level 0 BMI (Body Mass Index) 30.4 kg/m2 09/19/2015 Height 66.5 inches 5'6.50" Weight 190.00 lb Pain Level 3 BMI (Body Mass Index) 30.2 kg/m2 09/13/2015 Height 66.5 inches 5'6.50" Weight 190.00 lb Body Temperature 98.6 F Pain Level 0 BMI (Body Mass Index) 30.2 kg/m2 08/17/2015 Height 66.5 inches 5'6.50" Weight 190.00 lb Heart Rate 94 /min BP Systolic 151 mmHg BP Diastolic 90 mmHg BMI (Body Mass Index) 30.2 kg/m2 Results Test Date Test Result H/L Range Note Laboratory test finding 11/28/2017 Point of Care Glucose 167 mg/dL High 70 -100 1 Laboratory test finding 09/12/2017 Point of Care Glucose 135 mg/dL High 70 -100 2 Laboratory test finding 09/12/2017 Point of Care Glucose 259 mg/dL High 70 -100 3 Laboratory test finding 09/01/2015 Point of Care Glucose 112 mg/dL High 74 -106 4 Laboratory test finding 09/01/2015 Point of Care Glucose 81 mg/dL 74-106 5 Laboratory test finding 09/01/2015 Point of Care Glucose 186 mg/dL High 74 -106 6 Laboratory test finding 09/01/2015 Point of Care Glucose 61 mg/dL Low 74- 106 7 1 Renewable Energy Engineer: [id number] Renewable Energy Engineer: [id number] Renewable Energy Engineer: [id number] Renewable Energy Engineer: [id number] BABATUNDE SANFORD 5 Renewable Energy Engineer: [id number] SANFORD 6 Renewable Energy Engineer: THADDEUS MCBRIDE 7 Renewable Energy Engineer: THADDEUS MCBRIDE Procedures Date CPT Code Description Status 09/12/2017 23322 Trigger Finger Release Incision / Tendon Sheath Completed Incision 09/12/2017 46812 Trigger Finger Release Incision / Tendon Sheath Completed Incision 09/12/2017 16409 Trigger Finger Release Incision / Tendon Sheath Completed Incision 09/12/2017 38834 Trigger Finger Release Incision / Tendon Sheath Completed Incision 09/12/2017 08240 Trigger Finger Release Incision / Tendon Sheath Completed Incision 09/12/2017 38130 Trigger Finger Release Incision / Tendon Sheath Completed Incision 09/01/2015 47753 Dequervains-Tendon Sheath Incision/Extensor Completed Sheath,Wrist 09/01/2015 95183 Dequervains-Tendon Sheath Incision/Extensor Completed Sheath,Wrist Encounters Type Date Location Provider CPT E/M Dx Office Visit 11/17/2017 [facility] [address] M65.321 10:15a [facility] M65.331 M65.342 M65.332 M65.322 Office Visit 09/08/2017 9:00a [facility] [address]25 M65.341 Of [facility] M65.321 M65.331 Office Visit 08/17/2015 8:45a [facility] [address]99 M65.4 Dom [facility] Plan of Care Future Appointment(s):01/05/2018 9:30 am - [facility]/08/2017 - Oly Ralph M.D.M65.342 Trigger finger, left ring fingerNew Therapy:Physical TherapyFollow up:Follow up: 4 [id number] Trigger finger, left middle [id number] Trigger finger, left index finger
--- OUTSIDE RECORDS SUMMARY | 2017-12-12 11:54 | XMS REPORT ---
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 Vital Signs Date Vital Result Comment 11/17/2017 Height 66 inches 5'6" Heart Rate [...] Result H/L Range Note Laboratory test finding 09/12/2017 Point of Care Glucose 135 mg/dL High 70 -100 1 Laboratory test finding 09/12/2017 Point of Care Glucose 259 mg/dL High 70 -100 2 Laboratory test finding 09/01/2015 Point of Care Glucose 112 mg/dL High 74 -106 3 Laboratory test finding 09/01/2015 Point of Care Glucose 81 mg/dL 74-106 4 Laboratory test finding 09/01/2015 Point of Care Glucose 186 mg/dL High 74 -106 5 Laboratory test finding 09/01/2015 Point of Care Glucose 61 mg/dL Low 74- 106 6 1 Web Operations Specialist: [id number] 2 Web Operations Specialist: [id number] 3 Web Operations Specialist: [id number] SANFORD 4 Web Operations Specialist: MARYLOU SANFORD 5 Web Operations Specialist: THADDEUS MCBRIDE 6 Web Operations Specialist: THADDEUS MCBRIDE Procedures Date CPT Code Description Status 09/12/2017 80443 Trigger Finger Release Incision / Tendon Sheath Completed Incision 09/12/2017 75774 Trigger Finger Release Incision / Tendon Sheath Completed Incision 09/12/2017 91966 Trigger Finger Release Incision / Tendon Sheath Completed Incision 09/12/2017 06278 Trigger Finger Release Incision / Tendon Sheath Completed Incision 09/12/2017 23165 Trigger Finger Release Incision / Tendon Sheath Completed Incision 09/12/2017 28053 Trigger Finger Release Incision / Tendon Sheath Completed Incision 09/01/2015 61495 Dequervains-Tendon Sheath Incision/Extensor Completed Sheath,Wrist 09/01/2015 56117 Dequervains-Tendon Sheath Incision/Extensor Completed Sheath,Wrist Encounters Type Date Location Provider CPT E/M Dx Office Visit 09/08/2017 [facility], [address] M65.341 9:00a [facility] M65.321 M65.331 Office Visit 08/17/2015 8:45a [facility], [address]486 M65.4 Dom Cruz Plan of Care Future Appointment(s):12/08/2017 9:30 am - Oly Ralph M.D. at [facility]/28/2017 8:30 am - DANILO Alcantar at [facility]/28/2017 8:30 am - [facility] M.D[facility]11/17/2017 - Oly Ralph M.D.M65.321 Trigger finger, right index fingerFollow up:10-14 days [id number] Trigger finger, right middle [id number] Trigger finger, left ring [id number] Trigger finger, left middle [id number] Trigger finger, left index finger
[2017-12-12] MEDS ORDERED: Ondansetron INJ* 2 MG/ML VIAL IV ONE (12:29)
[2017-12-12] MEDS ORDERED: NS 0.9% 1000 ML* 1,000 ML IV ONE (12:29)
--- NOTE | 2017-12-12 12:34 | ED ---
HPI Diabetic - HPI Summary HPI Summary: Patient is a 47 y/o F w/ c/o N/V, NIX, dizziness, blurred vision, epigastric abdominal pain, sore throat, and high ketones. Sx are reported to have onset two or three days ago. She states she cannot keep any fluids/food down. Patient notes that she takes Humalog and has a sliding scale. She states BG was measured to be 496 this morning. On triage, pain is rated 3/10, nothing is noted to aggravate/alleviate Sx. PMHx of type 1 diabetes, thyroid ca with thyroidectomy, hysterectomy, back surgery is noted. - History Of Current Complaint Chief Complaint: EDUpperRespComplaint Time Seen by Provider: 12/12/17 11:42 Hx Obtained From: Patient Hx Last Menstrual Period: 03/10/1999 Onset/Duration: Lasting Hours - this morning BG was 496, Lasting Days - N/V, NIX , dizziness, blurred vision, abdominal pain, sore throat, inability to take fluids/food PO and high ketones., Still Present - N/V, NIX, dizziness, blurred vision, abdominal pain, sore throat, inability to take fluids/food PO and high ketones. Timing: Constant Severity Currently: Mild - 3/10 Aggravating: Nothing Alleviating: Nothing Associated Signs & Symptoms: Abdominal Pain - epigastric, Nausea, Vomiting - Allergies/Home Medications Allergies/Adverse Reactions: Allergies Allergy/AdvReac Type Severity Reaction Status Date / Time Penicillins Allergy Intermediate Hives Verified 11/28/17 08:58 PMH/Surg Hx/FS Hx/Imm Hx Endocrine/Hematology History: Reports: Hx Diabetes - type I, Hx Thyroid Disease - THYROID CANCER 2008 Denies: Hx Anticoagulant Therapy Cardiovascular History: Denies: Hx Congestive Heart Failure, Hx Deep Vein Thrombosis, Hx Hypertension , Hx Myocardial Infarction, Hx Pacemaker/ICD, Other Cardiovascular Problems/ Disorders Respiratory History: Denies: Hx Asthma, Hx Chronic Obstructive Pulmonary Disease (COPD), Hx Lung Cancer, Hx Pneumonia, Hx Pulmonary Embolism, Other Respiratory Problems/ Disorders GI History: Denies: Hx Gall Bladder Disease, Hx Gastrointestinal Bleed, Hx Ulcer, Hx Urosepsis, Other GI Disorders History: Denies: Hx Kidney Stones, Hx Renal Disease Sensory History: Reports: Hx Contacts or Glasses - GLASSES for work Denies: Hx Hearing Aid Opthamlomology History: Reports: Hx Contacts or Glasses - GLASSES for work Neurological History: Reports: Hx Migraine - PAST Denies: Hx Dementia, Hx Seizures, Hx Transient Ischemic Attacks (TIA), Other Neuro Impairments/Disorders Psychiatric History: Reports: Hx Anxiety, Hx Depression - ON MEDS Denies: Hx Panic Disorder, Hx Schizophrenia, Hx Bipolar Disorder - Cancer History Cancer Type, Location and Year: thyroid 2009 Hx Chemotherapy: No - radiation Hx Radiation Therapy: Yes - THYROID CANCER 2008 - Surgical History Surgery Procedure, Year, and Place: L5 S1 Micro Diskectomy, 2006, 2012 [facility]. Thyroidectomy, 2009, [place]. Hysterectomy, 2001, [place], TOTAL OF 4 BACK SURGERIES. right wrist surgery 2016. 2018, trigger finger right hand, [facility] Hx Anesthesia Reactions: No Infectious Disease History: No Infectious Disease History: Denies: Hx Clostridium Difficile, Hx Hepatitis, Hx Human Immunodeficiency Virus (HIV), Hx of Known/Suspected MRSA, Hx Shingles, Hx Tuberculosis, Hx Known/ Suspected VRE, Hx Known/Suspected VRSA, History Other Infectious Disease, Traveled Outside the [place] in Last 30 Days - Family History Known Family History: Positive: Cardiac Disease, Hypertension, Diabetes - Social History Alcohol Use: Rare Alcohol Amount: 2 per month Substance Use Type: Reports: None Smoking Status (MU): Former Smoker Type: Cigarettes Amount Used/How Often: 1/2 ppd, smoked off and on 30 years Length of Time of Smoking/Using Tobacco: quit in 1999 Have You Smoked in the Last Year: No Review of Systems Positive: Other - high BG, high ketones Positive: Blurred Vision Positive: Sore Throat Positive: Abdominal Pain - epigastric , Vomiting, Nausea Neurological: Other - POSITIVE: dizziness Positive: Headache All Other Systems Reviewed And Are Negative: Yes Physical Exam - Summary Physical Exam Summary: Appearance: The patient is well-nourished in no acute distress and in no acute pain. Skin: The skin is warm and dry and skin color reflects adequate perfusion. HEENT: The head is normocephalic and atraumatic. The pupils are equal and reactive. The conjunctivae are clear and without drainage. Nares are patent and without drainage. Mouth reveals moist mucous membranes and the throat is without erythema and exudate. The external ears are intact. The ear canals are patent and without drainage. The tympanic membranes are intact. Neck: The neck is supple with full range of motion and non-tender. There are no carotid bruits. There is no neck vein distension. Respiratory: Chest is non-tender. Lungs are clear to auscultation and breath sounds are symmetrical and equal. Cardiovascular: Tachycardic. There is no murmur or rub auscultated. There is no peripheral edema and pulses are symmetrical and equal. Abdomen: The abdomen is soft and non-tender. There are normal bowel sounds heard in all four quadrants and there is no organomegaly palpated. Musculoskeletal: There is no back tenderness noted. Extremities are non-tender with full range of motion. There is good capillary refill. There is no peripheral edema or calf tenderness elicited. Neurological: Patient is alert and oriented to person, place and time. The patient has symmetrical motor strength in all four extremities. Cranial nerves are grossly intact. Deep tendon reflexes are symmetrical and equal in all four extremities. Psychiatric: The patient has an appropriate affect and does not exhibit any anxiety or depression. Triage Information Reviewed: Yes Vital Signs On Initial Exam: Initial Vitals Temp Pulse Resp BP Pulse Ox 97.6 F 113 16 127/89 99 12/12/17 11:41 12/12/17 11:41 12/12/17 11:41 12/12/17 11:41 12/12/17 11:41 Vital Signs Reviewed: Yes Diagnostics - Vital Signs Vital Signs Temp Pulse Resp BP Pulse Ox 12/12/17 11:41 97.6 F 113 16 127/89 99 - Laboratory Result Diagrams: 12/12/17 12:56 12/12/17 12:56 Lab Statement: Any lab studies that have been ordered have been reviewed, and results considered in the medical decision making process. - Radiology CXR Xray Interpretation: No Acute Changes Radiology Interpretation Completed By: Radiologist - no evidence for acute intrathoracic disease; this report was reviewed by ed physician Re-Evaluation - Re-Evaluation First Eval Re-Evaluation Time: 13:30 Change: Unchanged Comment: 1330 - Patient reports abdominal pain has continued, will be given Carafate 1 gm PO ONCE and protonix 40 mg IV ONCE. Second Eval Re-Evaluation Time: 14:10 Change: Unchanged Comment: Patient still reports pain, will be given Dialudid 1 mg IV Third Eval Re-Evaluation Time: 14:40 Change: Improved Comment: Pain medication is reported to have improved pain Fourth Eval Re-Evaluation Time: 16:45 Comment: Patient still reports experiencing nausea. More medication ordered. Fifth Eval Re-Evaluation Time: 17:10 Change: Improved Comment: Patient is feeling better, she will be discharged to home and follow up with PCP in 1-2 days. She understands and is agreeable with this plan. Diabetic Course/Dx - Course Course Of Treatment: When Ms. Bowen presented to the emergency department, she was concerned that she had diabetic ketoacidosis. She had been vomiting on and off for 2-3 days and her urinalysis dips were positive for ketones. She denied any pain except occasionally when she vomited she had discomfort in the epigastrium. She complained of some vague dizziness which was not spinning and visual problems which seemed to be related to difficulty focusing. Her fingerstick sugars have been running high and she's been using her sliding scale insulin. On exam she didn't look toxic but looked uncomfortable and her abdomen was soft and nontender. She was ordered Zofran and fluids while labs were obtained and I was called into the room because she was complaining of pain. She had vomited after the Zofran and subsequently had severe epigastric pain. Initially I attempted to treat that with Protonix IV and sucralfate which helped only marginally. She was then given Dilaudid which took her epigastric pain almost completely away. Her abdomen was soft and a chest x-ray showed no mediastinal emphysema. Initial white count was 11, she had mild metabolic acidosis and her BUN to creatinine ratio was elevated at 23. Her blood sugar was fine and she did not appear to be in diabetic ketoacidosis. We cannot get real-time serum ketones and she did have ketones in her urine she is likely related to her fasting state. Her dehydration is probably responsible for her metabolic acidosis. She looked a lot more comfortable when reevaluated however she was concerned that she would vomit again. She did drink 12 ounces of water here without vomiting and I think she is safe for discharge. I'm not sure what the source of her vomiting is but I gave her a prescription for Zofran ODT and sucralfate. I recommended close follow-up if not improving quickly. - Diagnoses Provider Diagnoses: Vomiting, Epigastric pain Discharge - Sign-Out/Discharge Documenting (check all that apply): Patient Departure - discharge - Discharge Plan Condition: Stable Disposition: HOME Prescriptions: Ondansetron ODT TAB* [Zofran Odt TAB*] 4 mg PO Q6H PRN #20 tab.odt PRN Reason: Nausea/Vomiting Sucralfate SUSP 1 gm PO QID ACHS #200 ml Patient Education Materials: Epigastric Pain (ED) Referrals: Gelacio Wiseman MD [Primary Care Provider] - 2 Days Additional Instructions: RETURN TO ED FOR ANY NEW OR WORSENING SYMPTOMS. FOLLOW UP WITH PRIMARY CARE PHYSICIAN IN 1-2 DAYS. - Billing Disposition and Condition Condition: STABLE Disposition: Home - Attestation Statements Document Initiated by Scribe: Yes Documenting Scribe: Adalid Lozano Provider For Whom Sydney is Documenting (Include Credential): Rashid Su MD Scribe Attestation: Adalid Gautam , scribed for Rashid Su MD on 12/12/17 at 1930. Scribe Documentation Reviewed: Yes Provider Attestation: The documentation as recorded by the Adalid thornton accurately reflects the service I personally performed and the decisions made by , Rashid Su MD
[2017-12-12 13:08] LABS: ABS Basophils 0 10^3/ul (0-0.2); ABS Eosinophils 0 10^3/ul (0-0.6); ABS Lymphocytes 2.4 10^3/ul (1.0-4.8); ABS Monocytes 0.4 10^3/ul (0-0.8); ABS Neutrophils 8.6 10^3/ul (1.5-7.7); ABS Nucleated RBC 0 10^3/ul; Eosinophil % 0.1 % (0-6); Hematocrit 43 % (35-47); Hemoglobin 14.1 g/dl (12.0-16.0); Lymphocyte % 20.7 % (25-47); Mean Corpuscular HGB Conc 33 g/dl (31-36); Mean Corpuscular Hemoglobin 29 pg (27-31); Mean Corpuscular Volume 87 fL (80-97); Mean Platelet Volume 8.2 um3 (7.4-10.4); Nucleated Red Blood Cells % 0.1; Platelet Count 283 10^3/ul (150-450); Red Blood Count 4.93 10^6/ul (4.00-5.40); Red Cell Distribution Width 13 % (10.5-15); White Blood Count 11.4 10^3/ul (3.5-10.8)
[2017-12-12 13:35] LABS: Urine Appearance Clear; Urine Blood 1+ (Negative); Urine Color Yellow; Urine Ketones 2+ (Negative); Urine Protein 1+(30 mg/dL) (Negative); Urine Red Blood Cell Trace(0-2/hpf) (Absent); Urine Specific Gravity 1.029 (1.010-1.030); Urine Urobilinogen Negative (Negative); Urine White Blood Cell Trace(0-5/hpf) (Absent)
[2017-12-12] MEDS ORDERED: Sucralfate TAB* 1 GM PO ONE (13:39)
[2017-12-12] MEDS ORDERED: Pantoprazole IV* 40 MG IV ONE (13:39)
[2017-12-12] MEDS ORDERED: HYDROmorphone INJ* 1 MG/ML CARPUJECT SYRINGE IV ONE (14:11)
[2017-12-12] MEDS ORDERED: HYDROmorphone INJ1* 1 MG/ML SYRINGE ONE (14:13)
--- NOTE | 2017-12-12 14:45 | RAD ---
Indication: One hour epigastric pain, nausea, vomiting. Comparison: April 21, 2017 Technique: Upright AP 1427 hours Report: No focal pulmonary lesion, compelling alveolar consolidation, pleural effusion, pneumothorax. The heart, pulmonary vasculature, and mediastinal contours are unremarkable. Negative for free air beneath the diaphragm. IMPRESSION: #. No evidence for acute intrathoracic disease.
[2017-12-12] MEDS ORDERED: PROCHLORPERAZINE INJ 5 MG/ML 2 ML VIAL IV PRN (16:50)
[2017-12-12 18:02] VITALS: BP 00/00
== END 2017-12-12 17:40 | disposition home or self-care (01) ==
LOC: ED 11:09
DX: R11.2 Nausea with vomiting, unspecified (principal); R10.13 Epigastric pain; Z88.0 Allergy status to penicillin; Z79.899 Other long term (current) drug therapy; E11.9 Type 2 diabetes mellitus without complications; Z85.850 Personal history of malignant neoplasm of thyroid; Z87.891 Personal history of nicotine dependence
CPT/HCPCS: 36415; 71045; 80053; 81003; 81015; 82803; 83605; 83690; 85025; 86140; 87086; 96374; 96375; 99282; A9270-GY; J0780; J1170; J2405

== ENCOUNTER 2017-12-26 20:34 | Inpatient (IN) | payer BC ==
[2017-12-26] MEDS ORDERED: NS 0.9% 1000 ML* 1,000 ML IV ONE ×2 (21:12→22:34)
[2017-12-26] MEDS ORDERED: Pantoprazole IV* 40 MG IV ONE (21:24)
[2017-12-26] MEDS ORDERED: Ondansetron INJ* 2 MG/ML VIAL IV ONE ×2 (21:24→22:03)
[2017-12-26 21:30] LABS: ABS Basophils 0.1 10^3/ul (0-0.2); ABS Eosinophils 0 10^3/ul (0-0.6); ABS Lymphocytes 2.1 10^3/ul (1.0-4.8); ABS Monocytes 0.7 10^3/ul (0-0.8); ABS Neutrophils 12.1 10^3/ul (1.5-7.7); ABS Nucleated RBC 0 10^3/ul; Eosinophil % 0.1 % (0-6); Hematocrit 46 % (35-47); Hemoglobin 15.1 g/dl (12.0-16.0); Mean Corpuscular HGB Conc 33 g/dl (31-36); Mean Corpuscular Hemoglobin 29 pg (27-31); Mean Corpuscular Volume 88 fL (80-97); Mean Platelet Volume 8.2 um3 (7.4-10.4); Nucleated Red Blood Cells % 0.1; Platelet Count 327 10^3/ul (150-450); Red Cell Distribution Width 14 % (10.5-15)
[2017-12-26] MEDS ORDERED: Morphine INJ* 4 MG/ML 1 ML SYRINGE (NEW SYRINGE VERSION) IV ONE (22:02)
--- NOTE | 2017-12-26 23:02 | ED ---
GI/ HPI - HPI Summary HPI Summary: 47 year old female presents with nausea and vomiting for the past 3 weeks. She states that she's been having epigastric pain. She denies any previous abdominal surgeries. She denies any fevers. No chest pain or shortness breath. No cough. She admits to urinary frequency. States pain is a burning sensation in her abdomen. She states that she has not been taking anything for her symptoms as the zofran was not working. She type 1 diabetic. She states that she's been having ketones in her urine. States feels weak dehydrated. States that she was seen here and given fluids three weeks ago. States that since she has seen her primary and went to the ED in [place] for dehydration. There she had a negative CT and ultrasound on Friday. She was admitted but decided to sign out AMA. - History of Current Complaint Chief Complaint: EDDiabeticProb Time Seen by Provider: 12/26/17 21:12 Stated Complaint: VOMITING Hx Last Menstrual Period: 03/10/1999 Pain Intensity: 7 - Allergy/Home Medications Allergies/Adverse Reactions: Allergies Allergy/AdvReac Type Severity Reaction Status Date / Time Penicillins Allergy Intermediate Hives Verified 12/26/17 20:42 PMH/Surg Hx/FS Hx/Imm Hx Endocrine/Hematology History: Reports: Hx Diabetes - type I, Hx Thyroid Disease - THYROID CANCER 2008 Denies: Hx Anticoagulant Therapy Cardiovascular History: Denies: Hx Congestive Heart Failure, Hx Deep Vein Thrombosis, Hx Hypertension , Hx Myocardial Infarction, Hx Pacemaker/ICD, Other Cardiovascular Problems/ Disorders Respiratory History: Denies: Hx Asthma, Hx Chronic Obstructive Pulmonary Disease (COPD), Hx Lung Cancer, Hx Pneumonia, Hx Pulmonary Embolism, Other Respiratory Problems/ Disorders GI History: Denies: Hx Gall Bladder Disease, Hx Gastrointestinal Bleed, Hx Ulcer, Hx Urosepsis, Other GI Disorders History: Denies: Hx Kidney Stones, Hx Renal Disease Sensory History: Reports: Hx Contacts or Glasses - GLASSES for work Denies: Hx Hearing Aid Opthamlomology History: Reports: Hx Contacts or Glasses - GLASSES for work Neurological History: Reports: Hx Migraine - PAST Denies: Hx Dementia, Hx Seizures, Hx Transient Ischemic Attacks (TIA), Other Neuro Impairments/Disorders Psychiatric History: Reports: Hx Anxiety, Hx Depression - ON MEDS Denies: Hx Panic Disorder, Hx Schizophrenia, Hx Bipolar Disorder - Cancer History Cancer Type, Location and Year: thyroid 2009 Hx Chemotherapy: No - radiation Hx Radiation Therapy: Yes - THYROID CANCER 2009 - Surgical History Surgery Procedure, Year, and Place: L5 S1 Micro Diskectomy, 2006, 2012 [facility]. Thyroidectomy, 2009, [place]. Hysterectomy, 2001, [place], TOTAL OF 4 BACK SURGERIES. right wrist surgery 2016. 2018, trigger finger right hand, [facility] Hx Anesthesia Reactions: No Infectious Disease History: No Infectious Disease History: Denies: Hx Clostridium Difficile, Hx Hepatitis, Hx Human Immunodeficiency Virus (HIV), Hx of Known/Suspected MRSA, Hx Shingles, Hx Tuberculosis, Hx Known/ Suspected VRE, Hx Known/Suspected VRSA, History Other Infectious Disease, Traveled Outside the [place] in Last 30 Days - Family History Known Family History: Positive: None, Cardiac Disease, Hypertension, Diabetes - Social History Alcohol Use: Rare Alcohol Amount: 2 per month Substance Use Type: Reports: None Smoking Status (MU): Former Smoker Type: Cigarettes Amount Used/How Often: 1/2 ppd, smoked off and on 30 years Length of Time of Smoking/Using Tobacco: quit in 1999 Have You Smoked in the Last Year: No Review of Systems Positive: Fever Negative: Chest Pain Negative: Shortness Of Breath Positive: Abdominal Pain, Vomiting, Nausea All Other Systems Reviewed And Are Negative: Yes Physical Exam Triage Information Reviewed: Yes Vital Signs On Initial Exam: Initial Vitals Temp Pulse Resp BP Pulse Ox 97.8 F 126 20 159/101 97 12/26/17 20:38 12/26/17 20:38 12/26/17 20:38 12/26/17 20:38 12/26/17 20:38 Vital Signs Reviewed: Yes Appearance: Positive: Well-Appearing Skin: Positive: Warm, Dry Head/Face: Positive: Normal Head/Face Inspection Eyes: Positive: Normal, Conjunctiva Clear ENT: Positive: Pharynx normal Respiratory/Lung Sounds: Positive: Clear to Auscultation, Breath Sounds Present Cardiovascular: Positive: Normal, RRR Abdomen Description: Positive: Soft, Other: - tenderness epigastric, no rebound , neg molina Bowel Sounds: Positive: Present Pelvic Exam: Positive: Active Bleeding Neurological: Positive: Normal Psychiatric: Positive: Normal Diagnostics - Vital Signs Vital Signs Temp Pulse Resp BP Pulse Ox 12/26/17 22:28 145/79 12/26/17 22:22 16 12/26/17 21:58 167/86 12/26/17 21:28 177/92 12/26/17 21:00 107 96 12/26/17 20:58 109 177/95 96 12/26/17 20:57 107 97 12/26/17 20:38 97.8 F 126 20 159/101 97 - Laboratory Lab Results: Lab Results 12/26/17 12/26/17 12/26/17 Range/Units 20:55 21:18 21:18 WBC 15.0 H (3.5-10.8) 10^3/ul RBC 5.20 (4.00-5.40) 10^6/ul Hgb 15.1 (12.0-16.0) g/dl Hct 46 (35-47) % MCV 88 (80-97) fL MCH 29 (27-31) pg MCHC 33 (31-36) g/dl RDW 14 (10.5-15) % Plt Count 327 (150-450) 10^3/ul MPV 8.2 (7.4-10.4) um3 Neut % (Auto) 80.7 (38-83) % Lymph % (Auto) 14.0 L (25-47) % Camp % (Auto) 4.8 (0-7) % Eos % (Auto) 0.1 (0-6) % Baso % (Auto) 0.4 (0-2) % Absolute Neuts (auto) 12.1 H (1.5-7.7) 10^3/ul Absolute Lymphs (auto) 2.1 (1.0-4.8) 10^3/ul Absolute Monos (auto) 0.7 (0-0.8) 10^3/ul Absolute Eos (auto) 0 (0-0.6) 10^3/ul Absolute Basos (auto) 0.1 (0-0.2) 10^3/ul Absolute Nucleated RBC 0 10^3/ul Nucleated RBC % 0.1 Sodium 138 (135-145) mmol/L Potassium 3.4 L (3.5-5.0) mmol/L Chloride 99 L (101-111) mmol/L Carbon Dioxide 20 L (22-32) mmol/L Anion Gap 19 H (2-11) mmol/L BUN 22 (6-24) mg/dL Creatinine 1.03 H (0.51-0.95) mg/dL Est GFR ( Amer) 68.9 (>60) Est GFR (Non-Af Amer) 57.0 (>60) BUN/Creatinine Ratio 21.4 H (8-20) Glucose 160 H (70-100) mg/dL POC Glucose (mg/dL) 128 H (70-100) mg/dL Lactic Acid (0.5-2.0) mmol/L Calcium 10.2 (8.6-10.3) mg/dL Total Bilirubin 0.60 (0.2-1.0) mg/dL AST 25 (13-39) U/L ALT 26 (7-52) U/L Alkaline Phosphatase 158 H (34-104) U/L C-Reactive Protein 4.72 (<8.01) mg/L Total Protein 7.6 (6.4-8.9) g/dL Albumin 4.5 (3.2-5.2) g/dL Globulin 3.1 (2-4) g/dL Albumin/Globulin Ratio 1.5 (1-3) Lipase 13 (11.0-82.0) U/L Beta HCG, Quant 3.42 mIU/mL 12/26/ Range/Units 21:18 WBC (3.5-10.8) 10^3/ul RBC (4.00-5.40) 10^6/ul Hgb (12.0-16.0) g/dl Hct (35-47) % MCV (80-97) fL MCH (27-31) pg MCHC (31-36) g/dl RDW (10.5-15) % Plt Count (150-450) 10^3/ul MPV (7.4-10.4) um3 Neut % (Auto) (38-83) % Lymph % (Auto) (25-47) % Camp % (Auto) (0-7) % Eos % (Auto) (0-6) % Baso % (Auto) (0-2) % Absolute Neuts (auto) (1.5-7.7) 10^3/ul Absolute Lymphs (auto) (1.0-4.8) 10^3/ul Absolute Monos (auto) (0-0.8) 10^3/ul Absolute Eos (auto) (0-0.6) 10^3/ul Absolute Basos (auto) (0-0.2) 10^3/ul Absolute Nucleated RBC 10^3/ul Nucleated RBC % Sodium (135-145) mmol/L Potassium (3.5-5.0) mmol/L Chloride (101-111) mmol/L Carbon Dioxide (22-32) mmol/L Anion Gap (2-11) mmol/L BUN (6-24) mg/dL Creatinine (0.51-0.95) mg/dL Est GFR ( Amer) (>60) Est GFR (Non-Af Amer) (>60) BUN/Creatinine Ratio (8-20) Glucose (70-100) mg/dL POC Glucose (mg/dL) (70-100) mg/dL Lactic Acid 1.5 (0.5-2.0) mmol/L Calcium (8.6-10.3) mg/dL Total Bilirubin (0.2-1.0) mg/dL AST (13-39) U/L ALT (7-52) U/L Alkaline Phosphatase (34-104) U/L C-Reactive Protein (<8.01) mg/L Total Protein (6.4-8.9) g/dL Albumin (3.2-5.2) g/dL Globulin (2-4) g/dL Albumin/Globulin Ratio (1-3) Lipase (11.0-82.0) U/L Beta HCG, Quant mIU/mL Result Diagrams: 12/26/17 21:18 12/26/17 21:18 Lab Statement: Any lab studies that have been ordered have been reviewed, and results considered in the medical decision making process. Re-Evaluation - Re-Evaluation First Eval Re-Evaluation Time: 22:00 Change: Unchanged Comment: still nauseous and in pain Second Eval Re-Evaluation Time: 23:26 Change: Unchanged Comment: still nauseous but feeling better GIGU Course/Dx - Course Course Of Treatment: 47 year old female presents with nausea and vomiting for the past 3 weeks. She states that she's been having epigastric pain. She denies any previous abdominal surgeries. She denies any fevers. No chest pain or shortness breath. No cough. She admits to urinary frequency. States pain is a burning sensation in her abdomen. She states that she has not been taking anything for her symptoms as the zofran was not working. She type 1 diabetic. She states that she's been having ketones in her urine. States feels weak dehydrated. States that she was seen here and given fluids three weeks ago. States that since she has seen her primary and went to the ED in [place] for dehydration. There she had a negative CT and ultrasound on Friday. She was admitted but decided to sign out AMA. On exam has epigastric pain. Negative Molina sign. Labs white blood count 15 which is consistent and vomiting. potassium slightly low at 3.4. lactic normal. crp normal. reviewed CT and u/s from [place] and they are negative. gave three dose of nausea medication and she is still nausous. will admit for vomiting. discussed case with dr girard who agrees to admit. - Diagnoses Differential Diagnoses - Female: Gastritis, Gastroenteritis (Viral), Gastroenteritis (Bacterial), Urinary Tract Infection, Other - dka Provider Diagnoses: Intractable vomiting with nausea, Abdominal pain Discharge - Sign-Out/Discharge Documenting (check all that apply): Patient Departure - Discharge Plan Condition: Stable Disposition: ADMITTED TO [facility] - Billing Disposition and Condition Condition: STABLE Disposition: Admitted to [facility]
[2017-12-26] MEDS ORDERED: PROCHLORPERAZINE INJ 5 MG/ML 2 ML VIAL IV ONE (23:21)
[2017-12-26 23:56] LABS: Urine Appearance Cloudy; Urine Blood Negative (Negative); Urine Color Yellow; Urine Ketones 2+ (Negative); Urine Protein 1+(30 mg/dL) (Negative); Urine Red Blood Cell Trace(0-2/hpf) (Absent); Urine Urobilinogen Negative (Negative); Urine White Blood Cell Trace(0-5/hpf) (Absent)
[2017-12-27] MEDS ORDERED: Metoclopramide LIQ* 10 MG/10 ML ORAL.SOLN PO PRN (01:09)
[2017-12-27] MEDS ORDERED: NS 0.9% 1000 ML* 1,000 ML IV SCH ×2 (01:15→08:00)
[2017-12-27] MEDS ORDERED: Dextrose 50% Syringe 50 ML* 25 GM/50 ML SYRINGE IV PUSH PRN (01:48)
[2017-12-27] MEDS: KCL 20 MEQ/100 ML IVPREMIX* 20 MEQ/100 ML BAG IV SCH ×2 (01:55→04:24)
[2017-12-27] MEDS: Enoxaparin(*) 40 MG/0.4 ML SYR SUBCUT SCH (02:00)
--- NOTE | 2017-12-27 04:45 | HP ---
HISTORY AND PHYSICAL: DATE OF ADMISSION: 12/27/17 TIME OF ADMISSION: 1:30 a.m. CHIEF COMPLAINT: Nausea. HISTORY OF PRESENT ILLNESS: This is a 47-year-old female with type 1 diabetes, who presents with 1 month of nausea and vomiting. She remembers the date that this began and it was 12/05/17 when she was having a green party at her house and she was not feeling well then and she has gotten progressively worse since that time. She was admitted to [facility] where she reports that her workup was negative and we have the results of a CT and ultrasound, which are unremarkable and she left AMA without any answer. She does not follow with an motor route carrier and she has not been given any diagnosis over the past month. She states she has not been able to eat at all and has lost about 20 pounds in the past month. She is unable to count how many times she vomits during the day and says it is almost constantly. She has not had diarrhea, chest pain, dysuria, fevers, or any other unusual symptoms. She does note some abdominal cramping and discomfort mostly in the epigastric area. She has found nothing that makes it better. It is constant and eating makes it worse. PAST MEDICAL HISTORY: 1. Type 1 diabetes, diagnosed in 2008. 2. 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 3. Hypothyroidism. 4. Depression and anxiety. PAST SURGICAL HISTORY: 1. Hysterectomy. 2. Four microdiskectomies. 3. Trigger finger release. HOME MEDICATIONS: 1. Levemir 30 units in the morning and 30 units at night. 2. Humalog sliding scale 16 units for the first 150 and 2 units for every 50 points above that. 3. Levothyroxine 225 mcg daily. 4. Xanax 0.5 t.i.d. p.r.n. anxiety. 5. Wellbutrin 150 q.h.s. FAMILY HISTORY: Her father had an WI in his 40s and her mother had a CVA in her 60s. SOCIAL HISTORY: She is a former smoker, she quit in August. She uses alcohol occasionally, but has not been using it in the past month. REVIEW OF SYSTEMS: As per the HPI. Remainder of the 14-point review of systems is negative. PHYSICAL EXAMINATION GENERAL: Alert, uncomfortable-appearing female, in no distress. She is nontoxic appearing. VITAL SIGNS: Temperature 97.8, heart rate 120, respiratory rate 20, pulse ox 97 % on room air, blood pressure 138/77. HEENT: Pupils equal, round, and reactive to light. Oral mucosa is dry. No pharyngeal exudates. NECK: No cervical adenopathy. No JVP. LUNGS: Her lungs are clear bilaterally. HEART: She is tachycardic with no murmurs. ABDOMEN: Soft. Mildly tender to deep palpation in the epigastrium. Negative Molina sign. No guarding or rebound. EXTREMITIES: No rashes, ulcers, or edema. LABORATORY DATA: White blood cells 15.0, hemoglobin 15.1, platelets 327. VBG , 7.22/29/53/13. Sodium 138, potassium 3.4, chloride 99, bicarb 20. Anion gap 19. Creatinine 1.03. Glucose 160. Beta HCG negative. Urinalysis shows 2+ ketones, 3+ glucose. ASSESSMENT AND PLAN: This is a 47-year-old female with history of poorly controlled type 1 diabetes, who presents with nausea and vomiting for 1 month. 1. Intractable nausea and vomiting. She does have marked metabolic acidosis; however, starvation ketosis and diabetic ketoacidosis cannot be distinguished on laboratory basis, but rather by history and based on her history, and she has not eaten for a month (though this degree of acidosis is unusual). However, there have been case reports of euglycemic diabetic ketoacidosis in patients who are on canagliflozin, which she does indeed take. She has not taken it for about a week she thinks, but this is still on my differential. It is quite possible that she has euglycemic diabetic ketoacidosis as a reaction to this medication. Alternatively, I think her symptoms could be explained by gastroparesis which she has never been worked up for. I would like to check a gastric emptying study tomorrow morning. I am going to control her symptoms for now with Reglan, Zofran, and IV fluid resuscitation. I would like to discuss the case with Dr. Lock in the morning to see if he would consider treating her for diabetic ketoacidosis if she does not improve quickly. I am also doing a cardiac workup and checking troponins and an EKG as well as lactic acid, a beta hydroxybutyrate, and troponin. Her last A1c here was 11.1 in 2017 and I am adding on an A1c now. 3. Type 1 diabetes. I am continuing her on long-acting insulin in the morning and night with fingersticks and correction insulin and holding the canagliflozin --may treat as DKA in which case, will stop the long acting insulin . 4. Hypokalemia. Replace now. 5. Elevated alk phos. Likely related to dehydration. 6. Anxiety and depression. Continue Xanax p.r.n. I am holding her Wellbutrin for now since I am starting Reglan and these have strong interaction. Because Wellbutrin does not have serotonergic effect, there should not be withdrawal symptoms from discontinuing Wellbutrin abruptly. 7. Hypothyroidism. Continue levothyroxine and check TSH in the morning. 8. DVT prophylaxis. Lovenox. [id number]/[facility] #: [id number] JERROD
[2017-12-27] MEDS: Levothyroxine TAB* 150 MCG TAB PO SCH (05:21)
[2017-12-27] MEDS: Morphine VIAL* 4 MG/ML VIAL (1 ml vial) IV PRN ×2 (06:13→22:15)
[2017-12-27] MEDS ORDERED: Insulin IVPB 100 units/100 ml 100 UNITS/100 ML UNIT IVPB SCH ×2 (07:00→07:03)
[2017-12-27] MEDS ORDERED: Insulin LISPRO* 1 UNITS UNIT SUBCUT SCH (07:30)
[2017-12-27] MEDS ORDERED: Insulin GLARGINE(*) 1 UNITS UNIT SUBCUT SCH (07:30)
[2017-12-27] MEDS: ALPRAZolam TAB* 0.25 MG PO PRN (07:30)
[2017-12-27] MEDS ORDERED: Insulin REGULAR(*) 1 UNITS UNIT IV PUSH ONE (07:54)
[2017-12-27] MEDS ORDERED: D5W 1000 ML BAG* 1,000 ML IV SCH (08:00)
[2017-12-27] MEDS ORDERED: D5W 1/2 NS 40 Meq KCL 1000 ML* 1,000 ML IV SCH (08:00)
[2017-12-27] MEDS ORDERED: KCL 20 MEQ/100 ML IVPREMIX* 20 MEQ/100 ML BAG IV SCH (08:00)
[2017-12-27] MEDS ORDERED: Insulin REGULAR(*) 1 UNITS UNIT ONE (08:01)
[2017-12-27 08:02] LABS: EGFR Non-African American 52.2 (>60)
[2017-12-27] MEDS: Insulin IVPB 100 units/100 ml 100 UNITS/100 ML UNIT IVPB SCH (08:42)
[2017-12-27] MEDS ORDERED: Pneumococcal *Vac Polyvalent 0.5 ML VIAL IM ONE (09:00)
[2017-12-27] MEDS ORDERED: Insulin Detemir (NF) 100 UNIT/ML 10 ML VIAL SUBCUT SCH (09:00)
[2017-12-27 09:01] LABS: EGFR Non-African American 45.6 (>60)
--- NOTE | 2017-12-27 09:17 | HP ---
HISTORY AND PHYSICAL: ADDENDUM: TIME OF REASSESSMENT: 7:15 a.m. I went to reassess Ms. Garzaterly this morning. She continues to be tachycardic and writhing in pain in her bed. She has ongoing abdominal pain and nausea. Unfortunately, Endocrinology is not supervisor elementary education today. I am going to treat her for euglycemic DKA and transfer her to the ICU for an insulin drip based on the degree of acidosis, the severity of her symptoms, and the history of taking canagliflozin. Since her sugar is already less than 200, I am starting insulin drip at 0.5 unit/kg/hour and putting her on D5 half normal saline with 40 mEq of potassium. She will need q.1 hour Accu- Cheks and q.4 hours BMPs. [id number]/[facility] #: [id number] MTDD
[2017-12-27] MEDS ORDERED: D5LR 1000 ML BAG* 1,000 ML IV SCH ×2 (12:00→21:00)
[2017-12-27 12:13] LABS: EGFR Non-African American 52.8 (>60)
--- NOTE | 2017-12-27 12:37 | CONSULT ---
Consult Consult: Endocrinology Inpatient Consult Note Date of Service: 12/27/17 Reason for Admission: DKA Reason for Consult: T1DM with euglycemic DKA ASSESSMENT: 47 yo with severe insulin-deficient diabetes, admitted for intractible nausea and vomiting, found to have evidence of "euglycemic" anaion gap metabolic acidosis in setting of recent SGLT2 inihibitor use. It is likely that this patient is experiencing hyperketonemia as direct result of SGLT2 inhibition in the kidney. While the mechanisms of this process remains unknown, patients with insulin-deficient forms of diabetes require insulin + dextrose metabolic support, in addition to high-volume fluid replacement and electrolyte correction. Of equal concern is the likelihood of subacute adrenal insufficiency causing her clinical syndrome -- this should be ruled out with ACTH stimulation test and treated with corticosteroids if present. PLAN: - check 250mcg ACTH stimulation test with 0 and 60 minute cortisol - if 60 minute cortisol <18, give hydrocortisone 100mg IV x1, then 50mg Q6H - continue IV insulin and IV D5 at 1.5X maintenance and target BG 120-180 - continue IV NS bolus for volume support - maintain NPO status until anion gap is closed - will follow HPI: 47 yo with T1DM since 2008, post-surgical hypothyroidism and depression, presenting to [facility] [place] with acute abdominal pain, nausea and vomiting for 3+ weeks. See admission note from Dr. Cardenas for details. Patient is acutely ill and can provide only limited history, but reports worsening abdominal pain and nausea for the past month, with inability to keep food or liquids down and multiple episodes of vomiting per day. Importantly, she was started on canagliflozin several months ago by her PCP (Gelacio Wiseman, [facility]) and tells me that she has taken this medication intermittently in the past month, but is not sure when her last dose was. She has noted both hyper and hypoglycemia during this time, without apparent pattern. She has been skipping bolus insulin doses, but is adherent to basal insulin therapy. 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 Levemir 30 units in the morning and 30 units at night 2. Humalog sliding scale 16 units for the first 150 and 2 units for every 50 points above that 3. Levothyroxine 225 mcg daily 4. Xanax 0.5 t.i.d. p.r.n. anxiety 5. Wellbutrin 150 q.h.s INPATIENT MEDICATIONS: Alprazolam (Xanax Tab*) 0.25 mg PO Q6H PRN PRN Reason: ANXIETY Last Admin: 12/27/17 07:30 Dose: 0.25 mg Cosyntropin (Cosyntropin*) 0.25 mg IV ONCE ONE Stop: 12/27/17 13:01 Dextrose (D50w Syringe 50 Ml*) 12.5 gm IV PUSH .FOR FS < 60 - SS PRN PRN Reason: FS < 60 Enoxaparin Sodium (Lovenox(*)) 40 mg SUBCUT Q24H IRLANDA Last Admin: 12/27/17 02:00 Dose: 40 mg Insulin Human Regular (Insulin Regular Ivpb) 100 units in 100 mls @ 3.354 mls/ hr IVPB Q24H IRLANDA; Protocol Last Admin: 12/27/17 08:42 Dose: 3.354 mls/hr Dextrose/Lactated Ringer's (D5lr 1000 Ml Bag*) 1,000 mls @ 125 mls/hr IV PER RATE IRLANDA Last Admin: 12/27/17 11:28 Dose: 125 mls/hr Levothyroxine Sodium (Synthroid Tab*) 225 mcg PO 0600 [facility] Last Admin: 12/27/17 05:21 Dose: 225 mcg Metoclopramide HCl (Reglan Liq*) 10 mg PO Q8H PRN PRN Reason: NAUSEA Morphine Sulfate (Morphine Vial*) 2 mg IV Q2H PRN PRN Reason: PAIN Last Admin: 12/27/17 06:13 Dose: 2 mg Ondansetron HCl (Zofran Odt Tab*) 8 mg PO Q8H PRN PRN Reason: NAUSEA/VOMITING SOC: Lives with boyfriend. Denies alcohol/drug use in past month. Former smoker. FAM: Son with T1DM and autoimmune thyroid disease. EXAM: Vital Signs: Temp Pulse Resp BP Pulse Ox 97.2 F 115 20 146/84 100 12/27/17 12:00 12/27/17 12:01 12/27/17 12:01 12/27/17 12:00 12/27/17 12:01 GEN: uncomfortable in bed, tachypneic ENT: neck supple CV: tachycardia ~120, hyperdynamic precordium CHEST: clear, tachypneic ABD: TTP in all quadrants, hypoactive BS EXT: no edema WBC 15.0 10^3/ul (3.5-10.8) H 12/26/17 21:18 RBC 5.20 10^6/ul (4.00-5.40) 12/26/17 21:18 Hgb 15.1 g/dl (12.0-16.0) 12/26/17 21:18 Hct 46 % (35-47) 12/26/17 21:18 MCV 88 fL (80-97) 12/26/17 21:18 MCH 29 pg (27-31) 12/26/17 21:18 MCHC 33 g/dl (31-36) 12/26/17 21:18 RDW 14 % (10.5-15) 12/26/17 21:18 Plt Count 327 10^3/ul (150-450) 12/26/17 21:18 MPV 8.2 um3 (7.4-10.4) 12/26/17 21:18 Neut % (Auto) 80.7 % (38-83) 12/26/17 21:18 Lymph % (Auto) 14.0 % (25-47) L 12/26/17 21:18 [place] % (Auto) 4.8 % (0-7) 12/26/17 21:18 Eos % (Auto) 0.1 % (0-6) 12/26/17:18 Baso % (Auto) 0.4 % (0-2) 12/26/17 21:18 Absolute Neuts (auto) 12.1 10^3/ul (1.5-7.7) H 12/26/17 21:18 Absolute Lymphs (auto) 2.1 10^3/ul (1.0-4.8) 12/26/17 21:18 Absolute Monos (auto) 0.7 10^3/ul (0-0.8) 12/26/17 21:18 Absolute Eos (auto) 0 10^3/ul (0-0.6) 12/26/17 21:18 Absolute Basos (auto) 0.1 10^3/ul (0-0.2) 12/26/17 21:18 Absolute Nucleated RBC 0 10^3/ul 12/26/17 21:18 Nucleated RBC % 0.1 12/26/17 21:18 VBG pH 7.22 (7.33-7.43) L 12/26/17 23:29 VBG pCO2 29 mmHg (41-51) L 12/26/17 23:29 VBG pO2 53 mmHg (35-45) H 12/26/17 23:29 VBG HCO3 13.4 mmol/L (24-28) L 12/26/17 23:29 VBG O2 Saturation 88.1 % (70-80) H 12/26/17 23:29 VBG Base Excess -14.4 (0-4) L 12/26/17 23:29 Sodium 137 mmol/L (135-145) 12/27/17 11:42 Potassium TNP 12/27/17 11:42 Chloride 112 mmol/L (101-111) H 12/27/17 11:42 Carbon Dioxide < 7 mmol/L (22-32) L* 12/27/17 11:42 Anion Gap Not Reportable 12/27/17 11:42 BUN 17 mg/dL (6-24) 12/27/17 11:42 Creatinine 1.10 mg/dL (0.51-0.95) H 12/27/17 11:42 Est GFR ( Amer) 63.9 (>60) 12/27/17 11:42 Est GFR (Non-Af Amer) 52.8 (>60) 12/27/17 11:42 BUN/Creatinine Ratio 15.5 (8-20) 12/27/17 11:42 Glucose 180 mg/dL (70-100) H 12/27/17 11:42 POC Glucose (mg/dL) 422 mg/dL (70-100) H* 12/27/17 07:35 Glucose Meter Confirm 504 mg/dL (70-100) H* 12/27/17 07:32 Lactic Acid 1.5 mmol/L (0.5-2.0) 12/26/17 21:18 Calcium 8.5 mg/dL (8.6-10.3) L 12/27/17 11:42 Phosphorus 3.3 mg/dL (2.5-5.0) 12/27/17 01:29 Total Bilirubin 0.60 mg/dL (0.2-1.0) 12/26/17 21:18 AST 25 U/L (13-39) 12/26/17 21:18 ALT 26 U/L (7-52) 12/26/17 21:18 Alkaline Phosphatase 158 U/L (34-104) H 12/26/17 21:18 Troponin I 0.01 ng/mL (<0.04) 12/27/17 07:32 C-Reactive Protein 4.72 mg/L (<8.01) 12/26/17 21:18 Total Protein 7.6 g/dL (6.4-8.9) 12/26/17 21:18 Albumin 4.5 g/dL (3.2-5.2) 12/26/17 21:18 Globulin 3.1 g/dL (2-4) 12/26/17 21:18 Albumin/Globulin Ratio 1.5 (1-3) 12/26/17 21:18 Lipase 13 U/L (11.0-82.0) 12/26/17 21:18 TSH 0.01 mcIU/mL (0.34-5.60) L 12/27/17 07:32 Beta HCG, Quant 3.42 mIU/mL 12/26/17 21:18 Urine Color Yellow 12/26/17 23:46 Urine Appearance Cloudy 12/26/17 23:46 Urine pH 5.0 (5-9) 12/26/17 23:46 Ur Specific [place] 1.020 (1.010-1.030) 12/26/17 23:46 Urine Protein 1+(30 mg/dl) (Negative) A 12/26/17 23:46 Urine Ketones 2+ (Negative) A 12/26/17 23:46 Urine Blood Negative (Negative) 12/26/17 23:46 Urine Nitrate Negative (Negative) 12/26/17 23:46 Urine Bilirubin Negative (Negative) 12/26/17 23:46 Urine Urobilinogen Negative (Negative) 12/26/17 23:46 Ur Leukocyte Esterase Negative (Negative) 12/26/17 23:46 Urine WBC (Auto) Trace(0-5/hpf) (Absent) 12/26/17 23:46 Urine RBC (Auto) Trace(0-2/hpf) (Absent) 12/26/17 23:46 Ur Squamous Epith Cells Present (Absent) A 12/26/17 23:46 Urine Bacteria Absent (Absent) 12/26/17 23:46 Hyaline Casts Present (Absent) A 12/26/17 23:46 Urine Glucose 3+(>=500 mg/dl) (Negative) A 12/26/17 23:46
[2017-12-27] MEDS ORDERED: Cosyntropin* 0.25 MG VIAL IV ONE (13:00)
[2017-12-27 15:33] LABS: EGFR Non-African American 57.6 (>60)
[2017-12-27 19:14] LABS: EGFR Non-African American 56.3 (>60)
[2017-12-27] MEDS ORDERED: Sodium Bicarbonate 8.4% IV* 50 MEQ in NS 0.9% 1000 ML* 1,000 ML IV ONE (20:00)
[2017-12-27] MEDS: Ondansetron ODT TAB* 4 MG PO PRN (20:18)
[2017-12-27] MEDS ORDERED: buPROPion SR TAB.SR* 150 MG PO SCH (21:00)
[2017-12-27 23:32] LABS: EGFR Non-African American 70.1 (>60)
[2017-12-28] MEDS: Enoxaparin(*) 40 MG/0.4 ML SYR SUBCUT SCH (02:05)
[2017-12-28] MEDS: Morphine VIAL* 4 MG/ML VIAL (1 ml vial) IV PRN (02:31)
[2017-12-28 05:11] LABS: ABS Basophils 0.1 10^3/ul (0-0.2); ABS Eosinophils 0 10^3/ul (0-0.6); ABS Lymphocytes 2.4 10^3/ul (1.0-4.8); ABS Monocytes 1.1 10^3/ul (0-0.8); ABS Neutrophils 13.1 10^3/ul (1.5-7.7); ABS Nucleated RBC 0 10^3/ul; Eosinophil % 0.1 % (0-6); Hematocrit 36 % (35-47); Hemoglobin 11.7 g/dl (12.0-16.0); Lymphocyte % 14.5 % (25-47); Mean Corpuscular HGB Conc 33 g/dl (31-36); Mean Corpuscular Hemoglobin 29 pg (27-31); Mean Corpuscular Volume 88 fL (80-97); Mean Platelet Volume 7.8 um3 (7.4-10.4); Nucleated Red Blood Cells % 0.1; Platelet Count 225 10^3/ul (150-450); Red Blood Count 4.06 10^6/ul (4.00-5.40); Red Cell Distribution Width 13 % (10.5-15); White Blood Count 16.7 10^3/ul (3.5-10.8)
[2017-12-28 05:30] LABS: EGFR Non-African American 82.1 (>60)
[2017-12-28] MEDS: Levothyroxine TAB* 150 MCG TAB PO SCH (06:14)
--- NOTE | 2017-12-28 07:16 | PN ---
Progress Note - Progress Note Date of Service: 12/28/17 Note: Endocrinology Inpatient Follow-Up Note ASSESSMENT: 47 yo F with T1DM and postoperative hypothyroidism, admitted with critical DKA syndrome most likely secondary to canagliflozin. Anion gap is now closed and acidosis is resolving. Patient remains fragile and should receive continuous IV insulin as long as she remains in ICU, with initiation of high- dose basal insulin 2-3 hours prior to discontinuation of IV insulin. Bolus insulin should be given *in addition to* IV insulin when she resumes eating. Suppressed TSH likely represents over-replacement of thyroid hormone. PLAN: - reduce levothyroxine to 100mcg daily - continue IV insulin + IV dextrose until patient is able to resume PO intake - add Humalog (lispro) 1 unit per 10g carbohydrate when PO resumes - start Lantus (glargine) 30 units daily 2-3 hours before stopping IV insulin + dextrose - check BG for 2 hours after discontinuation of IV insulin INTERVAL HISTORY: Much improved today. Taking sips of clears. Abdominal pain still present, much minimal compared to yesterday. Received IV bicarb last night with significant improvement in acidosis. On further history, patient has been on levothyroxine 225mcg for 9 years, but weight is 40% below time of thyroid cancer diagnosis. In addition, insulin doses have been maintained at > 80 units/day for that that time period with frequent hypoglycemia of increasing severity. INPATIENT MEDS: Alprazolam (Xanax Tab*) 0.25 mg PO Q6H PRN PRN Reason: ANXIETY Last Admin: 12/27/17 07:30 Dose: 0.25 mg Dextrose (D50w Syringe 50 Ml*) 12.5 gm IV PUSH .FOR FS < 60 - SS PRN PRN Reason: FS < 60 Enoxaparin Sodium (Lovenox(*)) 40 mg SUBCUT Q24H [facility] Last Admin: 12/28/17 02:05 Dose: 40 mg Insulin Human Regular (Insulin Regular Ivpb) 100 units in 100 mls @ 3.354 mls/ hr IVPB Q24H [facility]; Protocol Last Admin: 12/27/17 08:42 Dose: 3.354 mls/hr Dextrose/Lactated Ringer's (D5lr 1000 Ml Bag*) 1,000 mls @ 125 mls/hr IV PER RATE IRLANDA Last Admin: 12/27/17 23:16 Dose: 125 mls/hr Levothyroxine Sodium (Synthroid Tab*) 225 mcg PO 0600 IRLANDA Last Admin: 12/28/17 06:14 Dose: 225 mcg Metoclopramide HCl (Reglan Liq*) 10 mg PO Q8H PRN PRN Reason: NAUSEA Morphine Sulfate (Morphine Vial*) 2 mg IV Q2H PRN PRN Reason: PAIN Last Admin: 12/28/17 02:31 Dose: 2 mg Ondansetron HCl (Zofran Odt Tab*) 8 mg PO Q8H PRN PRN Reason: NAUSEA/VOMITING Last Admin: 12/27/17 20:18 Dose: 8 mg EXAM: Temp Pulse Resp BP Pulse Ox 98.5 F 101 17 123/64 95 12/28/17 04:00 12/28/17 06:01 12/28/17 06:01 12/28/17 06:00 12/28/17 06:01 GEN: tired-appearing, but conversive ENT: flat neck veins, surgical scar anterior neck CHEST: CTAB ABD: soft, some tenderness EXT: no edema LABS: WBC 16.7 10^3/ul (3.5-10.8) H 12/28/17 05:00 RBC 4.06 10^6/ul (4.00-5.40) 12/28/17 05:00 Hgb 11.7 g/dl (12.0-16.0) L 12/28/17 05:00 Hct 36 % (35-47) 12/28/17 05:00 MCV 88 fL (80-97) 12/28/17 05:00 MCH 29 pg (27-31) 12/28/17 05:00 MCHC 33 g/dl (31-36) 12/28/17 05:00 RDW 13 % (10.5-15) 12/28/17 05:00 Plt Count 225 10^3/ul (150-450) 12/28/17 05:00 MPV 7.8 um3 (7.4-10.4) 12/28/17 05:00 Neut % (Auto) 78.5 % (38-83) 12/28/17 05:00 Lymph % (Auto) 14.5 % (25-47) L 12/28/17 05:00 [place] % (Auto) 6.4 % (0-7) 12/28/17 05:00 Eos % (Auto) 0.1 % (0-6) 12/28/17 05:00 Baso % (Auto) 0.5 % (0-2) 12/28/17 05:00 Absolute Neuts (auto) 13.1 10^3/ul (1.5-7.7) H 12/28/17 05:00 Absolute Lymphs (auto) 2.4 10^3/ul (1.0-4.8) 12/28/17 05:00 Absolute Monos (auto) 1.1 10^3/ul (0-0.8) H 12/28/17 05:00 Absolute Eos (auto) 0 10^3/ul (0-0.6) 12/28/17 05:00 Absolute Basos (auto) 0.1 10^3/ul (0-0.2) 12/28/17 05:00 Absolute Nucleated RBC 0 10^3/ul 12/28/17 05:00 Nucleated RBC % 0.1 12/28/17 05:00 VBG pH 7.25 (7.33-7.43) L 12/27/17 23:00 VBG pCO2 26 mmHg (41-51) L 12/27/17 23:00 VBG pO2 45 mmHg (35-45) 12/27/17 23:00 VBG HCO3 13.5 mmol/L (24-28) L 12/27/17 23:00 VBG O2 Saturation 89.0 % (70-80) H 12/27/17 23:00 VBG Base Excess -14.2 (0-4) L 12/27/17 23:00 Sodium 141 mmol/L (135-145) 12/28/17 05:00 Potassium 3.1 mmol/L (3.5-5.0) L 12/28/17 05:00 Chloride 115 mmol/L (101-111) H 12/28/17 05:00 Carbon Dioxide 18 mmol/L (22-32) L 12/28/17 05:00 Anion Gap 8 mmol/L (2-11) 12/28/17 05:00 BUN 13 mg/dL (6-24) 12/28/17 05:00 Creatinine 0.75 mg/dL (0.51-0.95) 12/28/17 05:00 Est GFR ( Amer) 99.4 (>60) 12/28/17 05:00 Est GFR (Non-Af Amer) 82.1 (>60) 12/28/17 05:00 BUN/Creatinine Ratio 17.3 (8-20) 12/28/17 05:00 Glucose 194 mg/dL (70-100) H 12/28/17 05:00 POC Glucose (mg/dL) 188 mg/dL (70-100) H 12/28/17 06:08 Glucose Meter Confirm 504 mg/dL (70-100) H* 12/27/17 07:32 Hemoglobin A1c 9.7 % (4.0-5.6) H 12/26/17 23:29 Lactic Acid 1.4 mmol/L (0.5-2.0) 12/28/17 05:00 Calcium 8.7 mg/dL (8.6-10.3) 12/28/17 05:00 Phosphorus 3.3 mg/dL (2.5-5.0) 12/27/17 01:29 Total Bilirubin 0.40 mg/dL (0.2-1.0) 12/28/17 05:00 AST 14 U/L (13-39) 12/28/17 05:00 ALT 16 U/L (7-52) 12/28/17 05:00 Alkaline Phosphatase 120 U/L (34-104) H 12/28/17 05:00 Troponin I 0.01 ng/mL (<0.04) 12/27/17 18:50 C-Reactive Protein 4.72 mg/L (<8.01) 12/26/17:18 Total Protein 5.5 g/dL (6.4-8.9) L 12/28/17 05:00 Albumin 3.2 g/dL (3.2-5.2) 12/28/17 05:00 Globulin 2.3 g/dL (2-4) 12/28/17 05:00 Albumin/Globulin Ratio 1.4 (1-3) 12/28/17 05:00 Lipase 13 U/L (11.0-82.0) 12/26/17 21:18 TSH 0.00 mcIU/mL (0.34-5.60) L 12/28/17 05:00 Beta HCG, Quant 3.42 mIU/mL 12/26/17 21:18 Cortisol 78.29 mcg/dL 12/27/17 15:08 Urine Color Yellow 12/26/17 23:46 Urine Appearance Cloudy 12/26/17 23:46 Urine pH 5.0 (5-9) 12/26/17 23:46 Ur Specific [place] 1.020 (1.010-1.030) 12/26/17 23:46 Urine Protein 1+(30 mg/dl) (Negative) A 12/26/17 23:46 Urine Ketones 2+ (Negative) A 12/26/17 23:46 Urine Blood Negative (Negative) 12/26/17 23:46 Urine Nitrate Negative (Negative) 12/26/17 23:46 Urine Bilirubin Negative (Negative) 12/26/17 23:46 Urine Urobilinogen Negative (Negative) 12/26/17 23:46 Ur Leukocyte Esterase Negative (Negative) 12/26/17 23:46 Urine WBC (Auto) Trace(0-5/hpf) (Absent) 12/26/17 23:46 Urine RBC (Auto) Trace(0-2/hpf) (Absent) 12/26/17 23:46 Ur Squamous Epith Cells Present (Absent) A 12/26/17 23:46 Urine Bacteria Absent (Absent) 12/26/17 23:46 Hyaline Casts Present (Absent) A 12/26/17 23:46 Urine Glucose 3+(>=500 mg/dl) (Negative) A 12/26/17 23:46
[2017-12-28] MEDS ORDERED: Insulin GLARGINE(*) 1 UNITS UNIT SUBCUT SCH (09:00)
[2017-12-28] MEDS: Ibuprofen TAB* 600 MG PO PRN ×2 (09:30→21:15)
[2017-12-28] MEDS: Ondansetron ODT TAB* 4 MG PO PRN (09:30)
[2017-12-28] MEDS: Insulin LISPRO* 1 UNITS UNIT SUBCUT SCH ×7 (09:44→21:15)
[2017-12-28] MEDS: PROCHLORPERAZINE INJ 5 MG/ML 2 ML VIAL IV PRN (10:18)
[2017-12-28] MEDS: Insulin IVPB 100 units/100 ml 100 UNITS/100 ML UNIT IVPB SCH (10:31)
[2017-12-28] MEDS ORDERED: Insulin LISPRO* 1 UNITS UNIT SUBCUT ONE (10:33)
[2017-12-28] MEDS ORDERED: Dextrose 50% Syringe 50 ML* 25 GM/50 ML SYRINGE IV PUSH PRN (10:33)
--- NOTE | 2017-12-28 12:44 | PN ---
Date of Service: 12/28/17 Critical Care Services: Patient with type I diabetes admitted yesterday with ketosis possibly secondary to Rx with canagliflozin. Ketosis has resolved following Rx with IV insulin, fluids, and bicarbonate Rx. Patient is being followed by Dr. Lock ( endocrinology service). This aAM is much less tachypneic and tachycardic, and appears comfortable. Vital Signs: Temp Pulse Resp BP SpO2 FiO2 99 F 120 17 143/86 97 Physical Exam: Gen:Alert and oriented HEENT:No facial asymmetry Lungs:clear Cardiac: I/ early systolic murmur heard throughour precordium Abdomen: Not distended. BD hypoactive. Extremities: Warm. No cyanosis or edema. Fluid Balance (Past 24 Hours): 12/27/17 12/28/17 06:59 06:59 Intake Total 3000 5248.5 Output Total 2550 Balance 3000 2698.5 Weight 147 lb 148 lb Intake: IV Fluids 2000 4472 D5LR 1320 LR 525 NS (0.9%) 1550 SODIUM BICARB 1077 IVPB 1000 310 D5LR 110 KCl 20 Meq 200 Medicated IV 46.5 CC - Insulin 46.5 Oral 420 Output: Urine 2550 Other: Estimated Void Medium # Voids 1 Labs: Laboratory Results - last 24 hr 12/26/17 12/27/17 12/27/17 23:29 08:22 10:11 WBC RBC Hgb Hct MCV MCH MCHC RDW Plt Count MPV Neut % (Auto) Lymph % (Auto) [place] % (Auto) Eos % (Auto) Baso % (Auto) Absolute Neuts (auto) Absolute Lymphs (auto) Absolute Monos (auto) Absolute Eos (auto) Absolute Basos (auto) Absolute Nucleated RBC Nucleated RBC % VBG pH VBG pCO2 VBG pO2 VBG HCO3 VBG O2 Saturation VBG Base Excess Sodium Potassium Chloride Carbon Dioxide Anion Gap BUN Creatinine Est GFR ( Amer) Est GFR (Non-Af Amer) BUN/Creatinine Ratio Glucose POC Glucose (mg/dL) > 444 H* 236 H Hemoglobin A1c 9.7 H Lactic Acid Calcium Total Bilirubin AST ALT Alkaline Phosphatase Troponin I Total Protein Albumin Globulin Albumin/Globulin Ratio TSH Cortisol 12/27/17 12/27/17 12/27/17 11:08 13:09 14:16 WBC RBC Hgb Hct MCV MCH MCHC RDW Plt Count MPV Neut % (Auto) Lymph % (Auto) [place] % (Auto) Eos % (Auto) Baso % (Auto) Absolute Neuts (auto) Absolute Lymphs (auto) Absolute Monos (auto) Absolute Eos (auto) Absolute Basos (auto) Absolute Nucleated RBC Nucleated RBC % VBG pH VBG pCO2 VBG pO2 VBG HCO3 VBG O2 Saturation VBG Base Excess Sodium Potassium Chloride Carbon Dioxide Anion Gap BUN Creatinine Est GFR ( Amer) Est GFR (Non-Af Amer) BUN/Creatinine Ratio Glucose POC Glucose (mg/dL) 190 H 180 H 215 H Hemoglobin A1c Lactic Acid Calcium Total Bilirubin AST ALT Alkaline Phosphatase Troponin I Total Protein Albumin Globulin Albumin/Globulin Ratio TSH Cortisol 12/27/17 12/27/17 12/27/17 15:08 16:38 18:34 WBC RBC Hgb Hct MCV MCH MCHC RDW Plt Count MPV Neut % (Auto) Lymph % (Auto) [place] % (Auto) Eos % (Auto) Baso % (Auto) Absolute Neuts (auto) Absolute Lymphs (auto) Absolute Monos (auto) Absolute Eos (auto) Absolute Basos (auto) Absolute Nucleated RBC Nucleated RBC % VBG pH VBG pCO2 VBG pO2 VBG HCO3 VBG O2 Saturation VBG Base Excess Sodium 138 Potassium 4.5 Chloride 112 H Carbon Dioxide < 7 L* Anion Gap Not Reportable BUN 15 Creatinine 1.02 H Est GFR ( Amer) 69.7 Est GFR (Non-Af Amer) 57.6 BUN/Creatinine Ratio 14.7 Glucose 245 H POC Glucose (mg/dL) 212 H 211 H Hemoglobin A1c Lactic Acid Calcium 8.8 Total Bilirubin AST ALT Alkaline Phosphatase Troponin I 0.00 Total Protein Albumin Globulin Albumin/Globulin Ratio TSH Cortisol 78.29 12/27/17 12/27/17 12/27/17 18:50 19:53 20:57 WBC RBC Hgb Hct MCV MCH MCHC RDW Plt Count MPV Neut % (Auto) Lymph % (Auto) [place] % (Auto) Eos % (Auto) Baso % (Auto) Absolute Neuts (auto) Absolute Lymphs (auto) Absolute Monos (auto) Absolute Eos (auto) Absolute Basos (auto) Absolute Nucleated RBC Nucleated RBC % VBG pH VBG pCO2 VBG pO2 VBG HCO3 VBG O2 Saturation VBG Base Excess Sodium 140 Potassium 4.1 Chloride 112 H Carbon Dioxide 7 L* Anion Gap 21 H BUN 14 Creatinine 1.04 H Est GFR ( Amer) 68.1 Est GFR (Non-Af Amer) 56.3 BUN/Creatinine Ratio 13.5 Glucose 225 H POC Glucose (mg/dL) 201 H 203 H Hemoglobin A1c Lactic Acid Calcium 9.4 Total Bilirubin AST ALT Alkaline Phosphatase Troponin I 0.01 Total Protein Albumin Globulin Albumin/Globulin Ratio TSH Cortisol 12/27/17 12/27/17 12/27/17 22:01 23:00 23:00 WBC RBC Hgb Hct MCV MCH MCHC RDW Plt Count MPV Neut % (Auto) Lymph % (Auto) [place] % (Auto) Eos % (Auto) Baso % (Auto) Absolute Neuts (auto) Absolute Lymphs (auto) Absolute Monos (auto) Absolute Eos (auto) Absolute Basos (auto) Absolute Nucleated RBC Nucleated RBC % VBG pH 7.25 L VBG pCO2 26 L VBG pO2 45 VBG HCO3 13.5 L VBG O2 Saturation 89.0 H VBG Base Excess -14.2 L Sodium 142 Potassium 3.6 Chloride 115 H Carbon Dioxide 11 L* Anion Gap 16 H BUN 13 Creatinine 0.86 Est GFR ( Amer) 84.9 Est GFR (Non-Af Amer) 70.1 BUN/Creatinine Ratio 15.1 Glucose 204 H POC Glucose (mg/dL) 182 H Hemoglobin A1c Lactic Acid Calcium 8.8 Total Bilirubin AST ALT Alkaline Phosphatase Troponin I Total Protein Albumin Globulin Albumin/Globulin Ratio TSH Cortisol 12/28/17 12/28/17 12/28/17 02:05 03:18 04:07 WBC RBC Hgb Hct MCV MCH MCHC RDW Plt Count MPV Neut % (Auto) Lymph % (Auto) [place] % (Auto) Eos % (Auto) Baso % (Auto) Absolute Neuts (auto) Absolute Lymphs (auto) Absolute Monos (auto) Absolute Eos (auto) Absolute Basos (auto) Absolute Nucleated RBC Nucleated RBC % VBG pH VBG pCO2 VBG pO2 VBG HCO3 VBG O2 Saturation VBG Base Excess Sodium Potassium Chloride Carbon Dioxide Anion Gap BUN Creatinine Est GFR ( Amer) Est GFR (Non-Af Amer) BUN/Creatinine Ratio Glucose POC Glucose (mg/dL) 216 H 196 H 206 H Hemoglobin A1c Lactic Acid Calcium Total Bilirubin AST ALT Alkaline Phosphatase Troponin I Total Protein Albumin Globulin Albumin/Globulin Ratio TSH Cortisol 12/28/17 12/28/17 12/28/17 05:00 05:00 05:00 WBC 16.7 H RBC 4.06 Hgb 11.7 L Hct 36 MCV 88 MCH 29 MCHC 33 RDW 13 Plt Count 225 MPV 7.8 Neut % (Auto) 78.5 Lymph % (Auto) 14.5 L [place] % (Auto) 6.4 Eos % (Auto) 0.1 Baso % (Auto) 0.5 Absolute Neuts (auto) 13.1 H Absolute Lymphs (auto) 2.4 Absolute Monos (auto) 1.1 H Absolute Eos (auto) 0 Absolute Basos (auto) 0.1 Absolute Nucleated RBC 0 Nucleated RBC % 0.1 VBG pH VBG pCO2 VBG pO2 VBG HCO3 VBG O2 Saturation VBG Base Excess Sodium 141 Potassium 3.1 Chloride 115 Carbon Dioxide 18 Anion Gap 8 BUN 13 Creatinine 0.75 Glucose 194 H POC Glucose (mg/dL) Lactic Acid 1.4 Calcium 8.7 Total Bilirubin 0.40 AST 14 ALT 16 Alkaline Phosphatase 120 H Troponin I Total Protein 5.5 L Albumin 3.2 Globulin 2.3 Albumin/Globulin Ratio 1.4 TSH 0.00 L Studies: none today Nutrition: Started on consistent carb diet today Impression: Ketosis has resolved, and patient has improved clinically. Plan: Will d/c insulin drip and start subQ insulin per recommendations of endocrine service. Will also transfer out of the ICU. Critical Care Time: 45 minutes
[2017-12-28] MEDS: KCL 20 MEQ/100 ML IVPREMIX* 20 MEQ/100 ML BAG IV SCH ×3 (17:45→21:48)
[2017-12-28] MEDS ORDERED: Potassium Chlor TAB* 20 MEQ TAB.ER PO ONE (23:00)
[2017-12-29] MEDS: Enoxaparin(*) 40 MG/0.4 ML SYR SUBCUT SCH ×2 (01:43→21:48)
[2017-12-29 06:27] LABS: Hematocrit 36 % (35-47); Mean Corpuscular HGB Conc 33 g/dl (31-36); Mean Corpuscular Hemoglobin 29 pg (27-31); Mean Corpuscular Volume 89 fL (80-97); Mean Platelet Volume 8.2 um3 (7.4-10.4); Platelet Count 172 10^3/ul (150-450); Red Blood Count 4.08 10^6/ul (4.00-5.40); Red Cell Distribution Width 13 % (10.5-15)
[2017-12-29] MEDS: Levothyroxine TAB* 100 MCG TAB PO SCH (06:39)
[2017-12-29 06:48] LABS: EGFR Non-African American 106.3 (>60)
--- NOTE | 2017-12-29 07:31 | PN ---
Progress Note - Progress Note Date of Service: 12/29/17 Note: Endocrinology Inpatient Follow-Up Note ASSESSMENT: 47 yo F with T1DM and postoperative hypothyroidism, admitted with critical DKA syndrome most likely secondary to canagliflozin, now resolved. Will await preliminary read of gastric emptying study before discharge. Will need adjustment to insulin regimen -- her insulin requirement is approximately 80 units/day, which should be given 50% as basal and 50% as bolus. PLAN: - INCREASE Lantus to 40 units once daily - CHANGE Humalog to 10 units with meals, 5 units with snacks or partial meals - START Humalog sliding scale 1 unit/50 for BG>150 - continue levothyroxine 100mcg daily - follow-up with [facility] Endocrinology in 1 week INTERVAL HISTORY: Feeling better. Appetite still minimal due to nausea, but abdominal pain has improved. No vomiting. INPATIENT MEDS: Alprazolam (Xanax Tab*) 0.25 mg PO Q6H PRN PRN Reason: ANXIETY Last Admin: 12/27/17 07:30 Dose: 0.25 mg Dextrose (D50w Syringe 50 Ml*) 12.5 gm IV PUSH .FOR FS < 60 - SS PRN PRN Reason: FS < 60 Dextrose (D50w Syringe 50 Ml*) 12.5 gm IV PUSH .FOR FS < 60 - SS PRN PRN Reason: FS < 60 Enoxaparin Sodium (Lovenox(*)) 40 mg SUBCUT Q24H [facility] Last Admin: 12/29/17 01:43 Dose: 40 mg Ibuprofen (Motrin Tab*) 600 mg PO Q8H PRN PRN Reason: PAIN Last Admin: 12/28/17 21:15 Dose: 600 mg Insulin Glargine (Lantus(*)) 30 units SUBCUT Q24H [facility] Last Admin: 12/28/17 09:30 Dose: 30 units Insulin Human Lispro (Humalog*) 0 units SUBCUT ACHS [facility]; Protocol Last Admin: 12/28/17 21:15 Dose: 6 units Insulin Human Lispro (Humalog*) 0 units SUBCUT AC [facility]; Protocol Last Admin: 12/28/17 17:45 Dose: Not Given Levothyroxine Sodium (Synthroid Tab*) 100 mcg PO DAILY@0600 [facility] Last Admin: 12/29/17 06:39 Dose: Not Given Ondansetron HCl (Zofran Odt Tab*) 8 mg PO Q8H PRN PRN Reason: NAUSEA/VOMITING Last Admin: 12/28/17 09:30 Dose: 8 mg Prochlorperazine Edisylate (Compazine Inj*) 10 mg IV Q6H PRN PRN Reason: NAUSEA/VOMITING Last Admin: 12/28/17 10:18 Dose: 10 mg Vital Signs: Temp Pulse Resp BP Pulse Ox 98.4 F 86 16 129/70 99 12/29/17 03:33 12/29/17 03:33 12/29/17 03:33 12/29/17 03:33 12/29/17 03:33 WBC 8.0 10^3/ul (3.5-10.8) 12/29/17 06:06 RBC 4.08 10^6/ul (4.00-5.40) 12/29/17 06:06 Hgb 12.0 g/dl (12.0-16.0) 12/29/17 06:06 Hct 36 % (35-47) 12/29/17 06:06 MCV 89 fL (80-97) 12/29/17 06:06 MCH 29 pg (27-31) 12/29/17 06:06 MCHC 33 g/dl (31-36) 12/29/17 06:06 RDW 13 % (10.5-15) 12/29/17 06:06 Plt Count 172 10^3/ul (150-450) 12/29/17 06:06 MPV 8.2 um3 (7.4-10.4) 12/29/17 06:06 Neut % (Auto) 78.5 % (38-83) 12/28/17 05:00 Lymph % (Auto) 14.5 % (25-47) L 12/28/17 05:00 [place] % (Auto) 6.4 % (0-7) 12/28/17 05:00 Eos % (Auto) 0.1 % (0-6) 12/28/17 05:00 Baso % (Auto) 0.5 % (0-2) 12/28/17 05:00 Absolute Neuts (auto) 13.1 10^3/ul (1.5-7.7) H 12/28/17 05:00 Absolute Lymphs (auto) 2.4 10^3/ul (1.0-4.8) 12/28/17 05:00 Absolute Monos (auto) 1.1 10^3/ul (0-0.8) H 12/28/17 05:00 Absolute Eos (auto) 0 10^3/ul (0-0.6) 12/28/17 05:00 Absolute Basos (auto) 0.1 10^3/ul (0-0.2) 12/28/17 05:00 Absolute Nucleated RBC 0 10^3/ul 12/28/17 05:00 Nucleated RBC % 0.1 12/28/17 05:00 VBG pH 7.25 (7.33-7.43) L 12/27/17 23:00 VBG pCO2 26 mmHg (41-51) L 12/27/17 23:00 VBG pO2 45 mmHg (35-45) 12/27/17 23:00 VBG HCO3 13.5 mmol/L (24-28) L 12/27/17 23:00 VBG O2 Saturation 89.0 % (70-80) H 12/27/17 23:00 VBG Base Excess -14.2 (0-4) L 12/27/17 23:00 Sodium 138 mmol/L (135-145) 12/29/17 06:06 Potassium 3.3 mmol/L (3.5-5.0) L 12/29/17 06:42 Chloride 108 mmol/L (101-111) 12/29/17 06:06 Carbon Dioxide 20 mmol/L (22-32) L 12/29/17 06:06 Anion Gap 10 mmol/L (2-11) 12/29/17 06:06 BUN 16 mg/dL (6-24) 12/29/17 06:06 Creatinine 0.60 mg/dL (0.51-0.95) 12/29/17 06:06 Est GFR ( Amer) 128.6 (>60) 12/29/17 06:06 Est GFR (Non-Af Amer) 106.3 (>60) 12/29/17 06:06 BUN/Creatinine Ratio 26.7 (8-20) H 12/29/17 06:06 Glucose 268 mg/dL (70-100) H 12/29/17 06:06 POC Glucose (mg/dL) 239 mg/dL (70-100) H 12/28/17 21:03 Glucose Meter Confirm 504 mg/dL (70-100) H* 12/27/17 07:32 Hemoglobin A1c 9.7 % (4.0-5.6) H 12/26/17 23:29 Lactic Acid 1.4 mmol/L (0.5-2.0) 12/28/17 05:00 Calcium 8.3 mg/dL (8.6-10.3) L 12/29/17 06:06 Phosphorus 3.3 mg/dL (2.5-5.0) 12/27/17 01:29 Total Bilirubin 0.40 mg/dL (0.2-1.0) 12/28/17 05:00 AST 14 U/L (13-39) 12/28/17 05:00 ALT 16 U/L (7-52) 12/28/17 05:00 Alkaline Phosphatase 120 U/L (34-104) H 12/28/17 05:00 Troponin I 0.01 ng/mL (<0.04) 12/27/17 18:50 C-Reactive Protein 4.72 mg/L (<8.01) 12/26/17 21:18 Total Protein 5.5 g/dL (6.4-8.9) L 12/28/17 05:00 Albumin 3.2 g/dL (3.2-5.2) 12/28/17 05:00 Globulin 2.3 g/dL (2-4) 12/28/17 05:00 Albumin/Globulin Ratio 1.4 (1-3) 12/28/17 05:00 Lipase 13 U/L (11.0-82.0) 12/26/17 21:18 TSH 0.00 mcIU/mL (0.34-5.60) L 12/28/17 05:00 Beta HCG, Quant 3.42 mIU/mL 12/26/17 21:18 Cortisol 78.29 mcg/dL 12/27/17 15:08 Urine Color Yellow 12/26/17 23:46 Urine Appearance Cloudy 12/26/17 23:46 Urine pH 5.0 (5-9) 12/26/17 23:46 Ur Specific [place] 1.020 (1.010-1.030) 12/26/17 23:46 Urine Protein 1+(30 mg/dl) (Negative) A 12/26/17 23:46 Urine Ketones 2+ (Negative) A 12/26/17 23:46 Urine Blood Negative (Negative) 12/26/17 23:46 Urine Nitrate Negative (Negative) 12/26/17 23:46 Urine Bilirubin Negative (Negative) 12/26/17 23:46 Urine Urobilinogen Negative (Negative) 12/26/17 23:46 Ur Leukocyte Esterase Negative (Negative) 12/26/17 23:46 Urine WBC (Auto) Trace(0-5/hpf) (Absent) 12/26/17 23:46 Urine RBC (Auto) Trace(0-2/hpf) (Absent) 12/26/17 23:46 Ur Squamous Epith Cells Present (Absent) A 12/26/17 23:46 Urine Bacteria Absent (Absent) 12/26/17 23:46 Hyaline Casts Present (Absent) A 12/26/17 23:46 Urine Glucose 3+(>=500 mg/dl) (Negative) A 12/26/17 23:46
[2017-12-29] MEDS: Insulin LISPRO* 1 UNITS UNIT SUBCUT SCH ×7 (07:43→21:47)
[2017-12-29] MEDS: PROCHLORPERAZINE INJ 5 MG/ML 2 ML VIAL IV PRN (09:58)
--- NOTE | 2017-12-29 10:32 | PN ---
Subjective Date of Service: 12/29/17 Interval History: HOSPITALIST PROGRESS NOTE Patient seen and examined at bedside. Care reviewed and d/w Andreina Shaver RN. She c/o nausea, stomach doesn't feel right. Family History: Unchanged from Admission Social History: Unchanged from Admission Past Medical History: Unchanged from Admission Objective Active Medications: Alprazolam (Xanax Tab*) 0.25 mg PO Q6H PRN PRN Reason: ANXIETY Last Admin: 12/27/17 07:30 Dose: 0.25 mg Dextrose (D50w Syringe 50 Ml*) 12.5 gm IV PUSH .FOR FS < 60 - SS PRN PRN Reason: FS < 60 Dextrose (D50w Syringe 50 Ml*) 12.5 gm IV PUSH .FOR FS < 60 - SS PRN PRN Reason: FS < 60 Enoxaparin Sodium (Lovenox(*)) 40 mg SUBCUT Q24H [facility] Last Admin: 12/29/17 01:43 Dose: 40 mg Ibuprofen (Motrin Tab*) 600 mg PO Q8H PRN PRN Reason: PAIN Last Admin: 12/28/17 21:15 Dose: 600 mg Insulin Glargine (Lantus(*)) 30 units SUBCUT Q24H [facility] Last Admin: 12/28/17 09:30 Dose: 30 units Insulin Human Lispro (Humalog*) 0 units SUBCUT [facility]; Protocol Last Admin: 12/29/17 07:43 Dose: Not Given Insulin Human Lispro (Humalog*) 0 units SUBCUT AC [facility]; Protocol Last Admin: 12/29/17 07:43 Dose: Not Given Levothyroxine Sodium (Synthroid Tab*) 100 mcg PO DAILY@0600 [facility] Last Admin: 12/29/17 06:39 Dose: Not Given Ondansetron HCl (Zofran Odt Tab*) 8 mg PO Q8H PRN PRN Reason: NAUSEA/VOMITING Last Admin: 12/28/17 09:30 Dose: 8 mg Prochlorperazine Edisylate (Compazine Inj*) 10 mg IV Q6H PRN PRN Reason: NAUSEA/VOMITING Last Admin: 12/29/17 09:58 Dose: 10 mg Vital Signs - 8 hr 12/29/17 12/29/17 12/29/17 03:33 07:39 08:35 Temperature 98.4 F 98.9 F Pulse Rate 86 94 Respiratory 16 18 16 Rate Blood Pressure 129/70 151/71 (mmHg) O2 Sat by Pulse 99 100 Oximetry Oxygen Devices in Use Now: None Appearance: Middle aged lady lying in bed in NAD. Eyes: No Scleral Icterus Ears/Nose/Mouth/Throat: Mucous Membranes Moist Neck: Trachea Midline Extremities: No Edema Skin: No Rash or Ulcers Neurological: Alert and Oriented x 3, NL Muscle Strength and Tone Lines/Tubes/Other Access: Clean, Dry and Intact Peripheral IV Result Diagrams: 12/29/17 06:06 12/29/17 06:42 Assess/Plan/Problems-Billing Assessment: Mrs Bowen is a 47yo F with PMH of type 1 DM, folicullar thyroid CA s/p surgery/RT 2008, hypothyroidism, depression, anxiety, who presented to ED with c /o intractable N/V, found to have Canagliflozin induced DKA. - Patient Problems (1) DKA (diabetic ketoacidosis) Comment: - DKA is resolved. - Hb A1c 9.7. - Endocrinology input appreciated - Lantus 40 units with Humalog 10 units AC, plus sliding scale. - Close f/u with Endocrinology as outpatient. (2) Abdominal pain Comment: - Could be secondary to diabetic gastroparesis - for NM gastric emptying study. (3) Hypothyroidism Comment: - Continue Levothyroxine. (4) DVT prophylaxis Comment: - Lovenox. (5) Full code status Status and Disposition: Inpatient.
[2017-12-29] MEDS ORDERED: Insulin GLARGINE(*) 1 UNITS UNIT SUBCUT ONE (12:10)
--- NOTE | 2017-12-29 14:57 | RAD ---
Indication: Gastroparesis. Gastric emptying time was performed after oral ingestion of 1.1 mCi technetium 99m sulfur colloid with solid food material. Serial images were obtained for 90 minutes. There is no evidence of decrease in amount of radioactivity in the stomach. This is consistent with gastroparesis. IMPRESSION: There is no evidence of gastric emptying in the 90 minutes the study was performed. These findings are consistent with gastroparesis.
[2017-12-29] MEDS ORDERED: Morphine VIAL* 4 MG/ML VIAL (1 ml vial) IV PRN (15:17)
[2017-12-29] MEDS ORDERED: Metoclopramide TAB* 10 MG PO SCH (16:30)
[2017-12-29] MEDS ORDERED: PROCHLORPERAZINE INJ 5 MG/ML 2 ML VIAL IV PRN (17:31)
[2017-12-29] MEDS: NS 0.9% w/ 20 Meq KCL 1000 ML* 1,000 ML IV SCH (18:08)
[2017-12-29] MEDS: Ibuprofen TAB* 600 MG PO PRN (19:30)
--- NOTE | 2017-12-30 04:25 | CONS ---
GASTROENTEROLOGY CONSULTATION: DATE: 12/29/17 CONSULTING PHYSICIAN: Seble Pugh REASON FOR CONSULT: Intractable nausea and vomiting beginning 3 1/2 weeks ago, in a diabetic of 9 yrs duration admitted with ketoacidosis and gastric emptying scan today 24 hours after admission showing no emptying of a solid meal at 90 minutes. HISTORY OF PRESENT ILLNESS: This 47-year-old woman diagnosed with insulin- dependent diabetes (? Type 1) in 2008 says that at the beginning of the month, she began having nausea and violent episodes of vomiting. 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 It would occur frequently and interrupted a business trip to [place] last week. She came to the emergency room here on 12/12/17 and her glucose was 112 bicarb 21 and she was treated symptomatically. Nine days later 12/21/17 she was admitted to [facility] with glucose 102, bicarb 20 and WBC 10.1 . She had a normal CT of the abdomen and pelvis there and an ultrasound showing possible cavernous meningioma stated (probable multifocal) though no sign of obstruction or any cause for nausea and vomiting. Other blood tests were normal apart from a mild elevation of alkaline phosphatase at 153 Per report she signed out AMA She denies prior gastrointestinal complaints related to diabetes or before diabetes. History does show a couple of ER visits October 2015 for abdominal pain. She never had any endoscopy to work that up, but did have a right upper quadrant ultrasound and CT of the abdomen and pelvis in October 2015 that were nondiagnostic. She has never had any abdominal surgery. PAST MEDICAL HISTORY: 1. Type 1 diabetes diagnosed in 2008 - in September 2008, her glucose was 549, bicarb 22, and over the last 7 years, five hemoglobin A1c are available in the system ranging from 9.0 to 13.0. 2. History of follicular and thyroid cancer in 2008, operated in [place] by Dr. Cheo Trotter. She also received radiation treatment. 3. Postoperative hypothyroidism. 4. Anxiety and depression. 5. Hysterotomy with oophorectomy bilaterally. 6. Back surgeries. 7. Multiple trigger finger surgeries. MEDICATIONS: 1. Insulin 30 units twice a day and some regular units on a sliding scale. 2. Levothyroxine 225 mcg. 3. Xanax 0.5 three times a day for anxiety p.r.n. 4. Wellbutrin 150 q.h.s. 5. Invokana - dose unknown, taken until a week before this admission. FAMILY HISTORY: Father had a heart attack in his 40s. SOCIAL HISTORY: She was born and raised in the [facility]. 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 She is , but has a male significant other. She quit smoking in August 2017 saying her boyfriend was the influence to accomplish that. She drinks alcohol rarely. REVIEW OF SYSTEMS: She has had no history of seizure, CVA, TIA, hemiplegia, recent fevers, pneumonia, recent antibiotics, or prior endoscopy or colonoscopy. PHYSICAL EXAMINATION: She is a slender, tired appearing middle aged woman, in no distress though there are many things she cannot remember. HEENT exam shows no icterus. She has no adenopathy. Her lungs are clear. Heart sounds are regular. The abdomen is flat and soft with loose skin - ? signs of recent weight loss. Bowel sounds are present. There is no tenderness or mass appreciated. Rectal deferred. Extremities show no edema. She does not have an retching or vomiting during 45 minutes of the consult. DIAGNOSTIC STUDIES/LAB DATA: On admission, albumin of 4.5, C-reactive protein 4.72, TSH 0.00, LFTs normal, alkaline phosphatase mildly elevated at 120, BUN 22 on admission, creatinine 1.03. HOSPITAL COURSE: She was admitted late in the evening 2 days ago with a normal glucase and in the supervisor counseling and guidance hours developed acidosis so was admitted to the intensive care unit with a ketoacidosis marked by briefly a glucose near 500 then later a relatively low blood sugar. It was felt that may be previous treatment with Invokana contributed to that unusual metabolic picture. She has now been stabilized and moved out of the ICU. Impression: The cause of her N+V is unclear. Symptoms of nausea and vomiting go back almost a month, though her electrolytes both in our ER and when hospitalized a week ago at [place] did not appear overtly dysregulated. Her diabetes of 9 yrs duration has not been present that long to strongly suspect simply gastroparesis. Her symptoms seemed to come on so abruptly leading one to wonder if there was an infestion or exposure. She has no neuro symptoms My feeling is that her gastric emptying scan may be affected by reduced motility from the recovery from this acute illness on presentation. Upper endoscopy is planned to rule out peptic disease or other issues many of which would be unrelated to the CC but might affect her other chronic issues She has been stabilized in the ICU using sliding scale insulin. She had negative troponins. [id number]/[facility] #: [id number] JERROD
[2017-12-30] MEDS: Levothyroxine TAB* 100 MCG TAB PO SCH (05:49)
[2017-12-30] MEDS: NS 0.9% w/ 20 Meq KCL 1000 ML* 1,000 ML IV SCH ×2 (05:49→20:00)
[2017-12-30 07:29] LABS: EGFR Non-African American 128.2 (>60)
[2017-12-30] MEDS: Insulin LISPRO* 1 UNITS UNIT SUBCUT SCH ×6 (08:30→17:41)
[2017-12-30] MEDS: Insulin GLARGINE(*) 1 UNITS UNIT SUBCUT SCH (08:38)
--- NOTE | 2017-12-30 11:09 | PN ---
Subjective Date of Service: 12/30/17 Interval History: Pt reports she is hungry and would like to eat. She states she feels better with less nausea. Denies abdominal pain Family History: Unchanged from Admission Social History: Unchanged from Admission Past Medical History: Unchanged from Admission Objective Active Medications: Alprazolam (Xanax Tab*) 0.25 mg PO Q6H PRN PRN Reason: ANXIETY Last Admin: 12/27/17 07:30 Dose: 0.25 mg Dextrose (D50w Syringe 50 Ml*) 12.5 gm IV PUSH .FOR FS < 60 - SS PRN PRN Reason: FS < 60 Enoxaparin Sodium (Lovenox(*)) 40 mg SUBCUT 2200 [facility] Last Admin: 12/29/17 21:48 Dose: 40 mg Potassium Chloride/Sodium Chloride (Ns 0.9% W/ 20 Meq Kcl 1000 Ml*) 1,000 mls @ 100 mls/hr IV PER RATE [facility] Last Admin: 12/30/17 05:49 Dose: 100 mls/hr Ibuprofen (Motrin Tab*) 600 mg PO Q8H PRN PRN Reason: PAIN Last Admin: 12/29/17 19:30 Dose: 600 mg Insulin Glargine (Lantus(*)) 40 units SUBCUT Q24H [facility] Last Admin: 12/30/17 08:38 Dose: 40 unit Insulin Human Lispro (Humalog*) 0 units SUBCUT ACHS [facility]; Protocol Last Admin: 12/30/17 08:45 Dose: Not Given Insulin Human Lispro (Humalog*) 0 units SUBCUT AC [facility]; Protocol Last Admin: 12/30/17 08:30 Dose: Not Given Levothyroxine Sodium (Synthroid Tab*) 100 mcg PO DAILY@0600 [facility] Last Admin: 12/30/17 05:49 Dose: 100 mcg Morphine Sulfate (Morphine Vial*) 2 mg IV Q4H PRN PRN Reason: PAIN Last Admin: 12/29/17 15:32 Dose: 2 mg Ondansetron HCl (Zofran Odt Tab*) 8 mg PO Q8H PRN PRN Reason: NAUSEA/VOMITING Last Admin: 12/28/17 09:30 Dose: 8 mg Prochlorperazine Edisylate (Compazine Inj*) 10 mg IV Q6H PRN PRN Reason: NAUSEA/VOMITING Vital Signs - 8 hr 12/30/17 12/30/17 03:35 07:49 Temperature 97.8 F 97.3 F Pulse Rate 73 88 Respiratory 18 16 Rate Blood Pressure 102/48 116/68 (mmHg) O2 Sat by Pulse 98 99 Oximetry Oxygen Devices in Use Now: None Appearance: 47 yo female sitting up in bed A+Ox3 in NAD Eyes: No Scleral Icterus, PERRLA Ears/Nose/Mouth/Throat: NL Teeth, Lips, Gums, Mucous Membranes Moist Neck: NL Appearance and Movements; NL JVP Respiratory: Symmetrical Chest Expansion and Respiratory Effort Cardiovascular: NL Sounds; No Murmurs; No JVD, RRR, No Edema Extremities: No Edema, No Clubbing, Cyanosis Skin: No Rash or Ulcers, No Nodules or Sclerosis Neurological: Alert and Oriented x 3, NL Sensation, NL Gait, NL Muscle Strength and Tone Lines/Tubes/Other Access: Clean, Dry and Intact Peripheral IV Nutrition: Taking PO's Result Diagrams: 12/29/17 06:06 12/30/17 06:51 Additional Lab and Data: Lab Results 12/26/17 12/26/17 12/26/17 Range/Units 20:55 21:18 21:18 WBC 15.0 H (3.5-10.8) 10^3/ul RBC 5.20 (4.00-5.40) 10^6/ul Hgb 15.1 (12.0-16.0) g/dl Hct 46 (35-47) % MCV 88 (80-97) fL MCH 29 (27-31) pg MCHC 33 (31-36) g/dl RDW 14 (10.5-15) % Plt Count 327 (150-450) 10^3/ul MPV 8.2 (7.4-10.4) um3 Neut % (Auto) 80.7 (38-83) % Lymph % (Auto) 14.0 L (25-47) % [place] % (Auto) 4.8 (0-7) % Eos % (Auto) 0.1 (0-6) % Baso % (Auto) 0.4 (0-2) % Absolute Neuts (auto) 12.1 H (1.5-7.7) 10^3/ul Absolute Lymphs (auto) 2.1 (1.0-4.8) 10^3/ul Absolute Monos (auto) 0.7 (0-0.8) 10^3/ul Absolute Eos (auto) 0 (0-0.6) 10^3/ul Absolute Basos (auto) 0.1 (0-0.2) 10^3/ul Absolute Nucleated RBC 0 10^3/ul Nucleated RBC % 0.1 Sodium 138 (135-145) mmol/L Potassium 3.4 L (3.5-5.0) mmol/L Chloride 99 L (101-111) mmol/L Carbon Dioxide 20 L (22-32) mmol/L Anion Gap 19 H (2-11) mmol/L BUN 22 (6-24) mg/dL Creatinine 1.03 H (0.51-0.95) mg/dL Est GFR ( Amer) 68.9 (>60) Est GFR (Non-Af Amer) 57.0 (>60) BUN/Creatinine Ratio 21.4 H (8-20) Glucose 160 H (70-100) mg/dL POC Glucose (mg/dL) 128 H (70-100) mg/dL Lactic Acid (0.5-2.0) mmol/L Calcium 10.2 (8.6-10.3) mg/dL Total Bilirubin 0.60 (0.2-1.0) mg/dL AST 25 (13-39) U/L ALT 26 (7-52) U/L Alkaline Phosphatase 158 H (34-104) U/L C-Reactive Protein 4.72 (<8.01) mg/L Total Protein 7.6 (6.4-8.9) g/dL Albumin 4.5 (3.2-5.2) g/dL Globulin 3.1 (2-4) g/dL Albumin/Globulin Ratio 1.5 (1-3) Lipase 13 (11.0-82.0) U/L Beta HCG, Quant 3.42 mIU/mL 12/26/17 Range/Units 21:18 WBC (3.5-10.8) 10^3/ul RBC (4.00-5.40) 10^6/ul Hgb (12.0-16.0) g/dl Hct (35-47) % MCV (80-97) fL MCH (27-31) pg MCHC (31-36) g/dl RDW (10.5-15) % Plt Count (150-450) 10^3/ul MPV (7.4-10.4) um3 Neut % (Auto) (38-83) % Lymph % (Auto) (25-47) % [place] % (Auto) (0-7) % Eos % (Auto) (0-6) % Baso % (Auto) (0-2) % Absolute Neuts (auto) (1.5-7.7) 10^3/ul Absolute Lymphs (auto) (1.0-4.8) 10^3/ul Absolute Monos (auto) (0-0.8) 10^3/ul Absolute Eos (auto) (0-0.6) 10^3/ul Absolute Basos (auto) (0-0.2) 10^3/ul Absolute Nucleated RBC 10^3/ul Nucleated RBC % Sodium (135-145) mmol/L Potassium (3.5-5.0) mmol/L Chloride (101-111) mmol/L Carbon Dioxide (22-32) mmol/L Anion Gap (2-11) mmol/L BUN (6-24) mg/dL Creatinine (0.51-0.95) mg/dL Est GFR ( Amer) (>60) Est GFR (Non-Af Amer) (>60) BUN/Creatinine Ratio (8-20) Glucose (70-100) mg/dL POC Glucose (mg/dL) (70-100) mg/dL Lactic Acid 1.5 (0.5-2.0) mmol/L Calcium (8.6-10.3) mg/dL Total Bilirubin (0.2-1.0) mg/dL AST (13-39) U/L ALT (7-52) U/L Alkaline Phosphatase (34-104) U/L C-Reactive Protein (<8.01) mg/L Total Protein (6.4-8.9) g/dL Albumin (3.2-5.2) g/dL Globulin (2-4) g/dL Albumin/Globulin Ratio (1-3) Lipase (11.0-82.0) U/L Beta HCG, Quant mIU/mL Microbiology and Other Data: Microbiology 12/26/17 23:46 Urine Culture - Final Urine No Growth (<1,000 CFU/mL) Assess/Plan/Problems-Billing Assessment: Mrs Bowen is a 47yo F with PMH of type 1 DM, folicullar thyroid CA s/p surgery/RT 2008, hypothyroidism, depression, anxiety, who presented to ED with c /o intractable N/V, found to have Canagliflozin induced DKA. - Patient Problems (1) DKA (diabetic ketoacidosis) Comment: - DKA is resolved. - Hb A1c 9.7. - Endocrinology input appreciated - Lantus 40 units increasing to 45 units at discharge with Humalog 12 units AC (up from 10), plus sliding scale 1 unit/50 for BG >150. - Close f/u with Endocrinology as outpatient - to be seen 1 week after discharge. - replace electrolytes - Mg+ K+ - recheck in am (2) Abdominal pain Comment: - Could be secondary to diabetic gastroparesis - for NM gastric emptying study. - upper endoscopy with GI today which was unremarkable - some mild irritation noted. - Advance diet (3) WILD (acute kidney injury) Comment: - resolved (4) Hypothyroidism Comment: - Continue Levothyroxine. (5) DVT prophylaxis Comment: - Lovenox. (6) Full code status Status and Disposition: Inpatient. Tenative plan for DC to home tomorrow
--- NOTE | 2017-12-30 12:36 | PN ---
Progress Note - Progress Note Date of Service: 12/30/17 Note: Endocrinology Inpatient Follow-up Note ASSESSMENT: 47 yo F with T1DM and postoperative hypothyroidism, admitted with critical DKA syndrome most likely secondary to canagliflozin, now resolved. She continues to improve clinically. BGs well-controlled, estimated insulin requirement 80 units/day = 1 unit/kg/day. GES yesterday showed 0% emptying, so patient underwent upper endoscopy for further characterization of this finding. PLAN: - INCREASE Lantus 40 => 45 units once daily at discharge - INCREASE Humalog to 10 => 12 units with meals, 5 => 6 units with snacks or partial meals - continue Humalog sliding scale 1 unit/50 for BG>150 - continue levothyroxine 100mcg daily - [facility] 1 week after discharge INTERVAL HISTORY: Feeling better. Appetite returning with less nausea, abdominal pain also improved. No vomiting. NPO for endoscopy today. Alprazolam (Xanax Tab*) 0.25 mg PO Q6H PRN PRN Reason: ANXIETY Last Admin: 12/27/17 07:30 Dose: 0.25 mg Dextrose (D50w Syringe 50 Ml*) 12.5 gm IV PUSH .FOR FS < 60 - SS PRN PRN Reason: FS < 60 Enoxaparin Sodium (Lovenox(*)) 40 mg SUBCUT 2200 [facility] Last Admin: 12/29/17 21:48 Dose: 40 mg Potassium Chloride/Sodium Chloride (Ns 0.9% W/ 20 Meq Kcl 1000 Ml*) 1,000 mls @ 100 mls/hr IV PER RATE [facility] Last Admin: 12/30/17 05:49 Dose: 100 mls/hr Ibuprofen (Motrin Tab*) 600 mg PO Q8H PRN PRN Reason: PAIN Last Admin: 12/29/17 19:30 Dose: 600 mg Insulin Glargine (Lantus(*)) 40 units SUBCUT Q24H [facility] Last Admin: 12/30/17 08:38 Dose: 40 unit Insulin Human Lispro (Humalog*) 0 units SUBCUT ACHS [facility]; Protocol Last Admin: 12/30/17 08:45 Dose: Not Given Insulin Human Lispro (Humalog*) 0 units SUBCUT AC [facility]; Protocol Last Admin: 12/30/17 08:30 Dose: Not Given Levothyroxine Sodium (Synthroid Tab*) 100 mcg PO DAILY@0600 [facility] Last Admin: 12/30/17 05:49 Dose: 100 mcg Morphine Sulfate (Morphine Vial*) 2 mg IV Q4H PRN PRN Reason: PAIN Last Admin: 12/29/17 15:32 Dose: 2 mg Ondansetron HCl (Zofran Odt Tab*) 8 mg PO Q8H PRN PRN Reason: NAUSEA/VOMITING Last Admin: 12/28/17 09:30 Dose: 8 mg Prochlorperazine Edisylate (Compazine Inj*) 10 mg IV Q6H PRN PRN Reason: NAUSEA/VOMITING OBJECTIVE: Vital Signs: Temp Pulse Resp BP Pulse Ox 97.3 F 88 16 116/68 99 12/30/17 07:49 12/30/17 07:49 12/30/17 08:00 12/30/17 07:49 12/30/17 07:49 GEN: well-appearing, out of bed ENT: flat neck veins ABD: soft, minimal tenderness CV: RRR EXT: no edema 12/29/17 07:43 278 - 30U Lantus 12/29/17 11:48 303 - 12U Humalog 12/29/17 16:59 129 - 12/29/17 21:00 188 - 3U Humalog 12/30/17 07:30 163 - 40U Lantus 12/30/17 11:30 206 WBC 8.0 10^3/ul (3.5-10.8) 12/29/17 06:06 RBC 4.08 10^6/ul (4.00-5.40) 12/29/17 06:06 Hgb 12.0 g/dl (12.0-16.0) 12/29/17 06:06 Hct 36 % (35-47) 12/29/17 06:06 MCV 89 fL (80-97) 12/29/17 06:06 MCH 29 pg (27-31) 12/29/17 06:06 MCHC 33 g/dl (31-36) 12/29/17 06:06 RDW 13 % (10.5-15) 12/29/17 06:06 Plt Count 172 10^3/ul (150-450) 12/29/17 06:06 MPV 8.2 um3 (7.4-10.4) 12/29/17 06:06 Neut % (Auto) 78.5 % (38-83) 12/28/17 05:00 Lymph % (Auto) 14.5 % (25-47) L 12/28/17 05:00 [place] % (Auto) 6.4 % (0-7) 12/28/17 05:00 Eos % (Auto) 0.1 % (0-6) 12/28/17 05:00 Baso % (Auto) 0.5 % (0-2) 12/28/17 05:00 Absolute Neuts (auto) 13.1 10^3/ul (1.5-7.7) H 12/28/17 05:00 Absolute Lymphs (auto) 2.4 10^3/ul (1.0-4.8) 12/28/17 05:00 Absolute Monos (auto) 1.1 10^3/ul (0-0.8) H 12/28/17 05:00 Absolute Eos (auto) 0 10^3/ul (0-0.6) 12/28/17 05:00 Absolute Basos (auto) 0.1 10^3/ul (0-0.2) 12/28/17 05:00 Absolute Nucleated RBC 0 10^3/ul 12/28/17 05:00 Nucleated RBC % 0.1 12/28/17 05:00 VBG pH 7.25 (7.33-7.43) L 12/27/17 23:00 VBG pCO2 26 mmHg (41-51) L 12/27/17 23:00 VBG pO2 45 mmHg (35-45) 12/27/17 23:00 VBG HCO3 13.5 mmol/L (24-28) L 12/27/17 23:00 VBG O2 Saturation 89.0 % (70-80) H 12/27/17 23:00 VBG Base Excess -14.2 (0-4) L 12/27/17 23:00 Sodium 140 mmol/L (135-145) 12/30/17 06:51 Potassium 3.1 mmol/L (3.5-5.0) L 12/30/17 06:51 Chloride 110 mmol/L (101-111) 12/30/17 06:51 Carbon Dioxide 23 mmol/L (22-32) 12/30/17 06:51 Anion Gap 7 mmol/L (2-11) 12/30/17 06:51 BUN 15 mg/dL (6-24) 12/30/17 06:51 Creatinine 0.51 mg/dL (0.51-0.95) 10 06:51 Est GFR ( Amer) 155.1 (>60) 12/30/17 06:51 Est GFR (Non-Af Amer) 128.2 (>60) 12/30/17 06:51 BUN/Creatinine Ratio 29.4 (8-20) H 12/30/17 06:51 Glucose 161 mg/dL (70-100) H 12/30/17 06:51 POC Glucose (mg/dL) 163 mg/dL (70-100) H 12/30/17 08:27 Glucose Meter Confirm 504 mg/dL (70-100) H* 12/27/17 07:32 Hemoglobin A1c 9.7 % (4.0-5.6) H 12/26/17 23:29 Lactic Acid 1.4 mmol/L (0.5-2.0) 12/28/17 05:00 Calcium 8.3 mg/dL (8.6-10.3) L 12/30/17 06:51 Phosphorus 3.3 mg/dL (2.5-5.0) 12/27/17 01:29 Magnesium 1.8 mg/dL (1.9-2.7) L 12/30/17 06:51 Total Bilirubin 0.40 mg/dL (0.2-1.0) 12/28/17 05:00 AST 14 U/L (13-39) 12/28/17 05:00 ALT 16 U/L (7-52) 12/28/17 05:00 Alkaline Phosphatase 120 U/L (34-104) H 12/28/17 05:00 Troponin I 0.01 ng/mL (<0.04) 12/27/17 18:50 C-Reactive Protein 4.72 mg/L (<8.01) 12/26/17 21:18 Total Protein 5.5 g/dL (6.4-8.9) L 12/28/17 05:00 Albumin 3.2 g/dL (3.2-5.2) 12/28/17 05:00 Globulin 2.3 g/dL (2-4) 12/28/17 05:00 Albumin/Globulin Ratio 1.4 (1-3) 12/28/17 05:00 Lipase 13 U/L (11.0-82.0) 12/26/17 21:18 TSH 0.00 mcIU/mL (0.34-5.60) L 12/28/17 05:00 Beta HCG, Quant 3.42 mIU/mL 12/26/17 21: Cortisol 78.29 mcg/dL 12/27/17 15:08 Urine Color Yellow 12/26/17 23:46 Urine Appearance Cloudy 12/26/17 23:46 Urine pH 5.0 (5-9) 12/26/17 23:46 Ur Specific Taylor 1.020 (1.010-1.030) 12/26/17 23:46 Urine Protein 1+(30 mg/dl) (Negative) A 12/26/17 23:46 Urine Ketones 2+ (Negative) A 12/26/17 23:46 Urine Blood Negative (Negative) 12/26/17 23:46 Urine Nitrate Negative (Negative) 12/26/17 23:46 Urine Bilirubin Negative (Negative) 12/26/17 23:46 Urine Urobilinogen Negative (Negative) 12/26/17 23:46 Ur Leukocyte Esterase Negative (Negative) 12/26/17 23:46 Urine WBC (Auto) Trace(0-5/hpf) (Absent) 12/26/17 23:46 Urine RBC (Auto) Trace(0-2/hpf) (Absent) 12/26/17 23:46 Ur Squamous Epith Cells Present (Absent) A 12/26/17 23:46 Urine Bacteria Absent (Absent) 12/26/17 23:46 Hyaline Casts Present (Absent) A 12/26/17 23:46 Urine Glucose 3+(>=500 mg/dl) (Negative) A 12/26/17 23:46 B-Hydroxybutyrate 5.6 mmol/L (<0.4) H 12/26/17
[2017-12-30] MEDS ORDERED: fentaNYL* 50 MCG/ML 2 ML VIAL (100 MCG VIAL) ONE (13:55)
[2017-12-30] MEDS ORDERED: Midazolam* 1 MG/ML 10 ML VIAL (10 MG) ONE (13:55)
[2017-12-30] MEDS ORDERED: Magnesium Sulfate 2 GM IV* 2 GM/50 ML BAG IVPB ONE (14:25)
[2017-12-30] MEDS ORDERED: Dextrose 50% Syringe 50 ML* 25 GM/50 ML SYRINGE IV PUSH PRN (14:34)
[2017-12-30] MEDS ORDERED: Insulin LISPRO* 1 UNITS UNIT SUBCUT PRN (15:51)
[2017-12-30] MEDS: KCL 20 MEQ/100 ML IVPREMIX* 20 MEQ/100 ML BAG IV SCH ×2 (17:31→23:48)
[2017-12-30] MEDS: Enoxaparin(*) 40 MG/0.4 ML SYR SUBCUT SCH (20:44)
[2017-12-30] MEDS: ALPRAZolam TAB* 0.25 MG PO PRN (23:28)
[2017-12-31] MEDS: Levothyroxine TAB* 100 MCG TAB PO SCH (05:50)
[2017-12-31] MEDS: NS 0.9% w/ 20 Meq KCL 1000 ML* 1,000 ML IV SCH (05:52)
[2017-12-31 07:24] LABS: EGFR Non-African American 140.8 (>60)
[2017-12-31] MEDS: Insulin LISPRO* 1 UNITS UNIT SUBCUT SCH ×2 (08:10→08:18)
[2017-12-31] MEDS: Insulin GLARGINE(*) 1 UNITS UNIT SUBCUT SCH (08:16)
[2017-12-31] MEDS ORDERED: KCL 20 MEQ/100 ML IVPREMIX* 20 MEQ/100 ML BAG IV ONE (09:19)
[2017-12-31] MEDS ORDERED: Potassium Chlor TAB* 20 MEQ TAB.ER PO ONE (09:19)
--- NOTE | 2017-12-31 09:20 | PRO ---
DATE: 12/30/17 - ROOM #416 REFERRING PHYSICIAN: Dr. Gelacio Wiseman, [place], [place]; Fredi Lock MD, Endocrinology, [facility]. PROCEDURE: Upper gastrointestinal endoscopy and gastric CLOtest and greater curvature biopsies and duodenal biopsies third portion. 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 The symptoms have waxed and waned but continued to relapse and she was in the emergency room here 12/12/17, [facility] 12/22/17 and then back here on . During this admission, she developed a profound acidosis. Please see Dr. Lock's records. Things do seem to be leveling out metabolically. Today she says she feels substantially better and has not had any vomiting. She jokes that the exam last night may have been of benefit. Yesterday she had a nuclear medicine gastric emptying scan that was 0% emptied at 90 minutes. She denies chronic outpatient history of acid indigestion or heartburn. She has not been on an acid uvaldo. ENDOSCOPIST: Dr. Villegas. MEDICATIONS: Midazolam 10, fentanyl 100. FINDINGS: She is a slender healthy-appearing woman in no distress at this time. She appears comfortable. She was positioned left side down and moderate sedation given in 2 mg doses as she seemed somewhat resistant to sedative. She was; however, comfortable and the exam went very well. EGD: Larynx - symmetric limited views. Esophagus - easily entered and the mucosa was normal in the upper, mid and lower esophagus with the EG junction at 40. There are no erosions and the esophagus itself appears normal. There is no hiatal hernia or fundic prolapse. Stomach - generally normal mucosa in the cardia, fundus, body and antrum. The rugal pattern appears normal. Antral peristalsis is intact. The pylorus appears normal. Duodenum - the bulb and the second through fourth portions appear normal. There is some minimal duodenal erythema and biopsies x2 are obtained from the third portion and then coming back from the mid gastric body, a CLOtest and 2 biopsies for routine histology. Slow pullthrough through the EG junction, esophagus and cricopharyngeus is normal. IMPRESSION: 1. Duodenal erythema - minimal, biopsies pending. 2. Otherwise normal upper endoscopy. 3. Four weeks of repetitive nausea and vomiting - cause unclear and the abrupt onset raises question of an ingestion or infection, although no fever has been documented. Nine years of diabetes without other end-organ complications that seemed to make it a little less likely this could represent a motility disorder related to diabetes, although her A1c has generally been very loose between 9 and 11. [id number]/[facility] #: [id number] [facility]
[2017-12-31 09:55] VITALS: BP 104/63
--- NOTE | 2017-12-31 10:04 | DCNOTE ---
Subjective Date of Service: 12/31/17 Interval History: Patient reports she would like to go home. She had an uneventful evening and states she sleep well. She reports mild "stomach ache after breakfast" but reports it feels better than prior days. Discussed and review discharge plan. Family History: Unchanged from Admission Social History: Unchanged from Admission Past Medical History: Unchanged from Admission Objective Active Medications: Alprazolam (Xanax Tab*) 0.25 mg PO Q6H PRN PRN Reason: ANXIETY Last Admin: 12/30/17 23:28 Dose: 0.25 mg Dextrose (D50w Syringe 50 Ml*) 12.5 gm IV PUSH .FOR FS < 60 - SS PRN PRN Reason: FS < 60 Enoxaparin Sodium (Lovenox(*)) 40 mg SUBCUT 2200 [facility] Last Admin: 12/30/17 20:44 Dose: 40 mg Potassium Chloride (Potassium Chloride 20 Meq/100 Ml Ivpremix*) 20 meq in 100 mls @ 50 mls/hr IV ONCE ONE Stop: 12/31/17 11:18 Last Admin: 12/31/17 09:39 Dose: 50 mls/hr Ibuprofen (Motrin Tab*) 600 mg PO Q8H PRN PRN Reason: PAIN Last Admin: 12/29/17 19:30 Dose: 600 mg Insulin Glargine (Lantus(*)) 40 units SUBCUT Q24H [facility] Last Admin: 12/31/17 08:16 Dose: 40 unit Insulin Human Lispro (Humalog*) 0 units SUBCUT [facility]; Protocol Last Admin: 12/31/17 08:10 Dose: Not Given Insulin Human Lispro (Humalog*) 12 units SUBCUT [facility] Last Admin: 12/31/17 08:18 Dose: 12 unit Insulin Human Lispro (Humalog*) 5 units SUBCUT .WITH SNACKS PRN PRN Reason: diabetes Last Admin: 12/30/17 23:28 Dose: 5 units Levothyroxine Sodium (Synthroid Tab*) 100 mcg PO DAILY@0600 [facility] Last Admin: 12/31/17 05:50 Dose: 100 mcg Morphine Sulfate (Morphine Vial*) 2 mg IV Q4H PRN PRN Reason: PAIN Last Admin: 12/29/17 15:32 Dose: 2 mg Ondansetron HCl (Zofran Odt Tab*) 8 mg PO Q8H PRN PRN Reason: NAUSEA/VOMITING Last Admin: 12/28/17 09:30 Dose: 8 mg Prochlorperazine Edisylate (Compazine Inj*) 10 mg IV Q6H PRN PRN Reason: NAUSEA/VOMITING Last Admin: 12/31/17 09:44 Dose: 10 mg Vital Signs - 8 hr 12/31/17 12/31/17 12/31/17 02:05 04:06 06:52 Temperature 97.8 F Pulse Rate 66 Respiratory 18 16 16 Rate Blood Pressure 108/63 (mmHg) O2 Sat by Pulse 98 Oximetry 12/31/17 07:20 Temperature 97.5 F Pulse Rate 69 Respiratory 18 Rate Blood Pressure 104/63 (mmHg) O2 Sat by Pulse 100 Oximetry Oxygen Devices in Use Now: None Appearance: 47 yo female laying in bed A+O x3 in NAD Eyes: No Scleral Icterus, PERRLA Ears/Nose/Mouth/Throat: NL Teeth, Lips, Gums, Mucous Membranes Moist Neck: NL Appearance and Movements; NL JVP Respiratory: Symmetrical Chest Expansion and Respiratory Effort, Clear to Auscultation Cardiovascular: NL Sounds; No Murmurs; No JVD, RRR, No Edema Abdominal: NL Sounds; No Tenderness; No Distention Extremities: No Edema, No Clubbing, Cyanosis Skin: No Rash or Ulcers, No Nodules or Sclerosis Neurological: Alert and Oriented x 3, NL Sensation, NL Gait, NL Muscle Strength and Tone Lines/Tubes/Other Access: Clean, Dry and Intact Peripheral IV Nutrition: Taking PO's Result Diagrams: 12/29/17 06:06 12/31/17 06:41 Additional Lab and Data: Lab Results 12/26/17 12/26/17 12/26/17 Range/Units 20:55 21:18 21:18 WBC 15.0 H (3.5-10.8) 10^3/ul RBC 5.20 (4.00-5.40) 10^6/ul Hgb 15.1 (12.0-16.0) g/dl Hct 46 (35-47) % MCV 88 (80-97) fL MCH 29 (27-31) pg MCHC 33 (31-36) g/dl RDW 14 (10.5-15) % Plt Count 327 (150-450) 10^3/ul MPV 8.2 (7.4-10.4) um3 Neut % (Auto) 80.7 (38-83) % Lymph % (Auto) 14.0 L (25-47) % [place] % (Auto) 4.8 (0-7) % Eos % (Auto) 0.1 (0-6) % Baso % (Auto) 0.4 (0-2) % Absolute Neuts (auto) 12.1 H (1.5-7.7) 10^3/ul Absolute Lymphs (auto) 2.1 (1.0-4.8) 10^3/ul Absolute Monos (auto) 0.7 (0-0.8) 10^3/ul Absolute Eos (auto) 0 (0-0.6) 10^3/ul Absolute Basos (auto) 0.1 (0-0.2) 10^3/ul Absolute Nucleated RBC 0 10^3/ul Nucleated RBC % 0.1 Sodium 138 (135-145) mmol/L Potassium 3.4 L (3.5-5.0) mmol/L Chloride 99 L (101-111) mmol/L Carbon Dioxide 20 L (22-32) mmol/L Anion Gap 19 H (2-11) mmol/L BUN 22 (6-24) mg/dL Creatinine 1.03 H (0.51-0.95) mg/dL Est GFR ( Amer) 68.9 (>60) Est GFR (Non-Af Amer) 57.0 (>60) BUN/Creatinine Ratio 21.4 H (8-20) Glucose 160 H (70-100) mg/dL POC Glucose (mg/dL) 128 H (70-100) mg/dL Lactic Acid (0.5-2.0) mmol/L Calcium 10.2 (8.6-10.3) mg/dL Total Bilirubin 0.60 (0.2-1.0) mg/dL AST 25 (13-39) U/L ALT 26 (7-52) U/L Alkaline Phosphatase 158 H (34-104) U/L C-Reactive Protein 4.72 (<8.01) mg/L Total Protein 7.6 (6.4-8.9) g/dL Albumin 4.5 (3.2-5.2) g/dL Globulin 3.1 (2-4) g/dL Albumin/Globulin Ratio 1.5 (1-3) Lipase 13 (11.0-82.0) U/L Beta HCG, Quant 3.42 mIU/mL 12/26/17 Range/Units 21:18 WBC (3.5-10.8) 10^3/ul RBC (4.00-5.40) 10^6/ul Hgb (12.0-16.0) g/dl Hct (35-47) % MCV (80-97) fL MCH (27-31) pg MCHC (31-36) g/dl RDW (10.5-15) % Plt Count (150-450) 10^3/ul MPV (7.4-10.4) um3 Neut % (Auto) (38-83) % Lymph % (Auto) (25-47) % [place] % (Auto) (0-7) % Eos % (Auto) (0-6) % Baso % (Auto) (0-2) % Absolute Neuts (auto) (1.5-7.7) 10^3/ul Absolute Lymphs (auto) (1.0-4.8) 10^3/ul Absolute Monos (auto) (0-0.8) 10^3/ul Absolute Eos (auto) (0-0.6) 10^3/ul Absolute Basos (auto) (0-0.2) 10^3/ul Absolute Nucleated RBC 10^3/ul Nucleated RBC % Sodium (135-145) mmol/L Potassium (3.5-5.0) mmol/L Chloride (101-111) mmol/L Carbon Dioxide (22-32) mmol/L Anion Gap (2-11) mmol/L BUN (6-24) mg/dL Creatinine (0.51-0.95) mg/dL Est GFR ( Amer) (>60) Est GFR (Non-Af Amer) (>60) BUN/Creatinine Ratio (8-20) Glucose (70-100) mg/dL POC Glucose (mg/dL) (70-100) mg/dL Lactic Acid 1.5 (0.5-2.0) mmol/L Calcium (8.6-10.3) mg/dL Total Bilirubin (0.2-1.0) mg/dL AST (13-39) U/L ALT (7-52) U/L Alkaline Phosphatase (34-104) U/L C-Reactive Protein (<8.01) mg/L Total Protein (6.4-8.9) g/dL Albumin (3.2-5.2) g/dL Globulin (2-4) g/dL Albumin/Globulin Ratio (1-3) Lipase (11.0-82.0) U/L Beta HCG, Quant mIU/mL Microbiology and Other Data: Microbiology 12/26/17 23:46 Urine Culture - Final Urine No Growth (<1,000 CFU/mL) Assess/Plan/Problems-Billing Assessment: Mrs Bowen is a 47yo F with PMH of type 1 DM, folicullar thyroid CA s/p surgery/RT 2008, hypothyroidism, depression, anxiety, who presented to ED with c /o intractable N/V, found to have Canagliflozin induced DKA. - Patient Problems (1) DKA (diabetic ketoacidosis) Comment: - DKA is resolved. - Hb A1c 9.7. - Endocrinology input appreciated - Discussed with Dr. Lock prior discharge - plan to discharged home on Levemir 20 units BID with lispro 12 units AC with 5 units units with meals. - Close f/u with Endocrinology as outpatient - to be seen 2 weeks after discharge. - replace electrolytes - Mg+ K+ - recheck outpt (2) Abdominal pain Comment: - Could be secondary to diabetic gastroparesis - NM gastric emptying study showing prolonged GES - Unclear if this is accurate in the setting of acute illness. - upper endoscopy with GI today which was unremarkable - some mild irritation noted. - Advance diet (3) WILD (acute kidney injury) Comment: - resolved (4) Hypothyroidism Comment: - Continue Levothyroxine. (5) DVT prophylaxis Comment: - Lovenox. (6) Full code status Status and Disposition: Inpatient. Tenative plan for DC to home tomorrow
--- NOTE | 2018-01-01 02:23 | DS ---
DISCHARGE SUMMARY: DATE OF ADMISSION: 12/27/17 DATE OF DISCHARGE: 12/31/17 PROVIDER: Jatinder Cox NP ATTENDING PHYSICIAN: Dr. Julian * (report dictated by Jatinder Cox NP). PRIMARY CARE PROVIDER: Dr. Gelacio Wiseman. CONSULTATION: Dr. Fredi Lock. DISCHARGE DIAGNOSES: 1. Euglycemic diabetic ketoacidosis, thought to be secondary to canagliflozin. 2. Type 1 diabetic. 3. Hypothyroidism. SECONDARY DIAGNOSES: 1. Depression and anxiety. 2. 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 HISTORY OF PRESENT ILLNESS AND HOSPITAL COURSE: Please see history and physical by Dr. Cardenas for full admission details; but in summary, this is a 47- year-old female with type 1 diabetes, who presented to the emergency department on 12/27/17 with 1 month of nausea and vomiting. She reported she was admitted to [facility] where she had a negative workup and left against medical advice without any answer. She had reported that she lost 20 pounds in the past month and was unable to count how many times she was vomiting during the day which she reports almost constantly. She was admitted to the hospitalist service for intractable nausea and vomiting and was noted to have a marked metabolic acidosis, but was noted to be euglycemic. It was suspected due to that she was on canagliflozin, it was causing euglycemic diabetic ketoacidosis. At the time of admission, she reports she had not taken it for approximately a week. The patient initially was admitted to the intensive care unit for her marked acidosis in which she presented with a VBG showing pH of 7.22, pCO2 29, pO2 53, HCO3 13.4, O2 saturation of 88, and base excess of 14. Her anion gap on admission was not reportable and she had a CO2 of less than 7. On repeat the evening of admission, her bicarb was noted to be 21. She presented with blood sugars between 80 and 200. She was seen in consultation by boiler tube reamer, Dr. Fredi Lock, who confirmed the patient had critical DKA syndrome most likely secondary to the canagliflozin and she was treated with continuous IV insulin. The second day of her admission, her anion gap did close and her acidosis was resolving. She did receive bicarb the day of her admission and did note to have significant improvement in her acidosis. She was seen in consultation by yard person, Dr. Hill, who agreed with the plan of care. The patient improved daily and her DKA resolved. She was transferred out of the ICU on day 2 of her admission. In regards to the patient's intractable nausea and vomiting, this improved; however, she did continue to complain of upper abdominal discomfort. She underwent a gastric emptying study, which showed "no evidence of gastric emptying in the 90 minutes the study was performed, reporting the findings are consistent with gastroparesis." The patient was seen in consultation by import clerk, Dr. Villegas, who thought it is possible she has gastroparesis especially with her history of diabetes; however, it is unclear in the setting of her acute illness if she truly has gastroparesis. Dr. Villegas did perform an upper endoscopy on 12/30/17, which showed "duodenal erythema, otherwise was a normal endoscopy." Biopsies were taken in which she had a negative CLOtest. Dr. Lock also agrees that in the setting of acute illness, it may be too early to give her the diagnosis of gastroparesis. Her abdominal discomfort has improved throughout hospitalization, but today on discharge, she does report a little abdominal discomfort after eating. This hopefully will improve. The patient is stable for discharge to home today. She has been followed by Dr. Lock, boiler tube reamer, throughout her hospitalization. We discussed the discharge plan, which was reviewed with the patient by myself and Dr. Lock. The patient did have electrolyte replacement throughout her hospitalization. She is to check labs on Friday. She is to follow up with her primary care provider on 01/07/18 at 3 p.m. and will follow up with Dr. Lock in 2 weeks. DISCHARGE MEDICATIONS: 1. Levemir 20 units subcu b.i.d. 2. Lispro 12 units t.i.d. with meals. 3. Xanax 0.25 mg p.o. q.6 hours p.r.n. 4. Wellbutrin SR 150 mg 2 tabs p.o. daily. 5. Synthroid 100 mcg p.o. daily (please note this was decreased from 225 mcg). DISCHARGE PLAN: 1. The patient is stable for discharge to home. Again, discharge plan and new medication regimen was discussed with the patient by myself as well as Dr. Fredi Lock. The patient states clear understanding. 2. The patient was instructed to return to the emergency department with any worsening or concerning symptoms. 3. Follow up with her primary care provider on 01/07/18 at 3 p.m. 4. Follow up with Dr. Lock at scheduled appointment, which was given to the patient by Dr. Lock. TIME SPENT: Approximately 60 minutes were spent on this discharge. JATINDER COX NP [id number]/[facility] #: [id number] JERROD
== END 2017-12-31 12:25 | disposition home or self-care (01) | DRG 420 ==
LOC: ED 20:34 → MED 12-27 01:02 → ICU 12-27 06:59 → MED 12-28 12:56
PROVIDERS: ADMIT Internal Medicine; ATTEND Internal Medicine
PROC: 0DD98ZX Extraction of Duodenum, Via Natural or Artificial Opening Endoscopic, Diagnostic (ICD-10-PCS; principal; 2017-12-30)
PROC: 0DD68ZX Extraction of Stomach, Via Natural or Artificial Opening Endoscopic, Diagnostic (ICD-10-PCS; 2017-12-30)
DX: E10.10 Type 1 diabetes mellitus with ketoacidosis without coma (principal); N17.9 Acute kidney failure, unspecified; F33.9 Major depressive disorder, recurrent, unspecified; K31.84 Gastroparesis; E10.43 Type 1 diabetes mellitus with diabetic autonomic (poly)neuropathy; T50.3X5A Adverse effect of electrolytic, caloric and water-balance agents, initial encounter; F41.9 Anxiety disorder, unspecified; E87.6 Hypokalemia; E86.0 Dehydration; E89.0 Postprocedural hypothyroidism; R10.9 Unspecified abdominal pain; Y92.9 Unspecified place or not applicable; Z85.850 Personal history of malignant neoplasm of thyroid; Z87.891 Personal history of nicotine dependence; Z79.4 Long term (current) use of insulin; Z79.899 Other long term (current) drug therapy; Z82.3 Family history of stroke; Z82.49 Family history of ischemic heart disease and other diseases of the circulatory system; Z88.0 Allergy status to penicillin
CPT/HCPCS: 36415; 78264; 80048; 80053; 81003; 81015; 82010; 82533; 82803; 82947; 83036; 83605; 83690; 83735; 84100; 84443; 84484; 84702; 85025; 85027; 86140; 87077; 87086; 88305; 90686; 90732; 93005; 99156; 99157; 99284; A9270-GY; A9541; J0780; J0834; J1650; J1815; J2250; J2270; J2405; J3010; J3475; J3480

== ENCOUNTER → 2018-04-14 08:16 | Day surgery (SDC) | payer BC ==
--- NOTE | 2018-04-13 17:14 | HP ---
CC: Dr. Fredi Lock; Dr. Gelacio Wiseman, [facility] DATE OF ADMISSION: 04/14/2018. ATTENDING SURGEON: Dr. Aric Sharp * (SILVIA Bal dictating). CHIEF COMPLAINT: Gallbladder dyskinesia. HISTORY OF PRESENT ILLNESS: This is a 48-year-old, type 1 diabetic who for the past couple of years has had intermittent right upper quadrant pain, characterized by pain with nausea and vomiting (not always associated with a particular food or specifically postprandial). By history, she had a HIDA scan done a couple of years ago that showed a low ejection fraction, but chose to control her symptoms with diet alone with some success. More recently, however , in November and December she began having a similar constellation of symptoms , but now with intractable vomiting and a significant increase in ketones. She was admitted to [facility] on 12/25/2017 with eventual consultation by Dr. Lock with a diagnosis of euglycemic ketoacidosis, possibly in part related to recent Canagliflozin administration. She was also noted during that admission to have significant gastroparesis by imaging. An EGD was done which was essentially normal. An ultrasound was done on 12/26/2017 showing a normal gallbladder, but with three echogenic masses in the liver, the largest of any measuring [address] scan the same date showed two of these to be likely fatty infiltration and the other most likely to be a hemangioma. More recently, the patient had a repeat of her HIDA scan with oral Microlipid challenge with a resulting ejection fraction of 18 percent (that study was done in [place]). She states that she occasional radiation of the pain to the back and has noted at times of late that her urine would be dark and/or stools pena in color. She has been fairly asymptomatic in the last couple of weeks. She was seen by Dr. Sharp in the office on 04/03/2018. He has reviewed all of her history and work- up, and has recommended laparoscopic cholecystectomy for gallbladder dyskinesia. The patient understands the indications for surgery, and the risks, benefits, and alternatives and would like to proceed as scheduled. PAST MEDICAL HISTORY: Type 1 diabetes, diabetic gastroparesis, hypothyroidism status post total thyroidectomy for papillary carcinoma and status post radioactive iodine treatment (now on chronic replacement), anxiety. PAST SURGICAL HISTORY: Bilateral trigger finger releases; a cyst of the right wrist; two lumbar back surgeries, diskectomies remotely; laparoscopic assisted total hysterectomy with bilateral salpingo oophorectomy for benign disease; and total thyroidectomy as noted above. No surgical or anesthesia complications reported. CURRENT MEDICATIONS: 1. Levothyroxine 150 mcg once daily. 2. Metoclopramide 10 mg t.i.d. prn (has not required of late). 3. Wellbutrin SR 150 mg b.i.d. 4. Levemir 20 units subcutaneously b.i.d. 5. Humalog 4 to 8 units subcutaneously q.i.d. based on sliding scale. DRUG ALLERGIES: PENICILLIN (CHILDHOOD REACTION, POSSIBLY HIVES), CANAGLIFLOZIN (EUGLYCEMIC KETOACIDOSIS), ATORVASTATIN AND SIMVASTATIN (MYALGIAS). FAMILY HISTORY: Negative for gallbladder disease. It is also negative for anesthesia problems, bleeding or clotting disorders. SOCIAL HISTORY: Patient lives with her boyfriend. She is employed in financial services sales representative. She quit smoking in August of 2017 after approximately 35 years of one- half pack per day. She drinks less than or equal to one drink per week. She denies any recreational drug use. REVIEW OF SYSTEMS: General: No additions to the HPI in terms of acute illnesses. HEENT: No problems reported. Cardiovascular: No chest pain, palpitations, history of heart murmur, WA or angina. Respiratory: No history of asthma, chronic cough, or shortness of breath. GI: As above per HPI. No significant lower GI symptoms other than noted. She did undergo colonoscopy in February of 2018 with removal of a rectal hyperplastic polyp. : No problems reported. Endocrine: Type 1 diabetes and on chronic thyroid replacement as noted above. She does use a [employer] FreeStyle glucose monitor. COMMISS[employer]ED DEFENCE [employer] OFFICER: She no longer has Pap smears done, status post hysterectomy. She has had breast exam and mammogram done within the past year, reportedly normal. PHYSICAL EXAMINATION GENERAL: Well-nourished, well-developed female in no acute distress. SKIN: Warm and dry. No suspicious rashes or lesions. VITAL SIGNS: Height 5'6", weight 164 pounds. Temperature 98.5, blood pressure 126/78, pulse 82. HEENT: Pupils equal and round, reactive. EOM's intact. No conjunctival pallor. Oropharynx: Teeth in good repair. No intraoral lesions. NECK: No lymphadenopathy, thyromegaly, or masses. There is a well-healed incision from prior thyroidectomy. LUNGS: Clear to auscultation. No wheezes. HEART: Regular rate and rhythm. No murmur noted. BREASTS: Not examined. ABDOMEN: Well-healed umbilical and other laparoscopic incision sites. Abdomen is soft with mild tenderness in the mid epigastrium, but negative Molina sign. No palpable masses or organomegaly. BACK: No spinous process or CVA tenderness. EXTREMITIES: No edema. GENITALIA: Not done. RECTAL: Not done. NEUROLOGIC: Grossly intact. IMPRESSION: Gallbladder dyskinesia. PLAN: Laparoscopic cholecystectomy. SILVIA BAL [id number]/[facility] #: [id number] MTDD
[~2018-04-14 08:16] MED LIST changes: +Acetaminophen IV 1GM/100ML * 1,000 MG/100 ML VIAL IVPB ONE; -Buffered Lidocaine 0.9% SYRIN* 5 ML/SYR SYRINGE INTRADERM ONE; +Buffered Lidocaine 1% SYRIN* 1 ML/SYRINGE INTRADERM ONE; +Dexamethasone IV* 4 MG/ML 1 ML (4 MG) ONE; +Dextrose 50% Syringe 50 ML* 25 GM/50 ML SYRINGE IV PUSH PRN; +DiMENhydriNATE IV* 50 MG/ML VIAL IV PUSH PRN; +DiMENhydriNATE IV* 50 MG/ML VIAL ONE; +Famotidine IV* 10 MG/ML 2 ML (20 mg) IV ONE; +Famotidine IV* 10 MG/ML 2 ML (20 mg) ONE; +Insulin LISPRO* 1 UNITS UNIT SUBCUT ONE; +Insulin LISPRO* 1 UNITS UNIT SUBCUT PRN; +Ketorolac INJ* 30 MG/ML 1 ML VIAL ONE; +Lactated Ringers 1000 ML Bag* 1,000 ML IV SCH; +Lidocaine 2% PF * 5 ML VIAL ONE; +Midazolam* 1 MG/ML 5 ML VIAL (5 MG) ONE; +Naloxone* 0.4 MG/ML 1 ML VIAL IV PRN; +Ondansetron INJ* 2 MG/ML VIAL ONE; +Propofol* 10 MG/ML 20 ML BTL ONE; +ceFAZolin 2 GM PREMIX in ORs 2 GM/50 ML BAG IVPB ONE; +fentaNYL* 50 MCG/ML 2 ML VIAL (100 MCG VIAL) ONE; +fentaNYL* 50 MCG/ML 5 ML VIAL (250 MCG VIAL) ONE; +oxyCODONE TAB* 5 MG TAB PO PRN
[2018-04-14 13:17] VITALS: BP 128/83
--- NOTE | 2018-04-14 22:02 | OP ---
CC: Gelacio Wiseman MD, [place], [place]; Fredi Lock MD * DATE OF OPERATION: 04/14/18 - [facility] DATE OF : 66 SURGEON: Aric Sharp MD SUPPLY MANAGER: SILVIA Bal ANESTHESIOLOGIST: Windy Bustamante MD ANESTHESIA: General endotracheal. PRE-OP DIAGNOSIS: Biliary dyskinesia. POST-OP DIAGNOSIS: Biliary dyskinesia. OPERATIVE PROCEDURE: Laparoscopic cholecystectomy. ESTIMATED BLOOD LOSS: Less than 50 mL. IV FLUIDS: Crystalloid. SPECIMENS: Gallbladder. DRAINS: None. COMPLICATIONS: None. COUNT: Instrument, needle, and sponge counts correct. DESCRIPTION OF PROCEDURE: The patient was brought to the operating room and placed on the table supine. Sequential compression devices were placed on both lower extremities and general anesthesia was administered. She was administered intravenous antibiotics. She was positioned and padded appropriately, then prepped and draped in the usual sterile fashion. Time-out was performed. Local anesthetic was infiltrated into the skin and soft tissue prior to making each incision. Entry to the abdomen was through a transumbilical vertical incision through a previous scar. After accessing the peritoneal cavity, a 12- mm trocar was placed and carbon dioxide was insufflated to a pressure of 15 mmHg. Under direct visualization, 5-mm trocars were placed in the subxiphoid position and two in the right upper quadrant. Gallbladder was identified; it had no acute inflammation. The fundus was grasped and retracted cephalad. The infundibulum was identified. The peritoneum investing this was incised with cautery and using a combination of sharp and blunt dissection, the peritoneum was stripped away. The dissection proceeded medially and laterally in the gallbladder in order to define the cystic duct and cystic artery. A critical view was obtained. The cystic artery and cystic duct were each doubly clipped and divided. The gallbladder was divided from attachments to the liver, staying in an avascular plane. Once the gallbladder was free, it was placed into an endoscopic retrieval bag and retrieved through the umbilical site. Hemostasis was assured. Clips were noted to be intact. Ports were removed under direct visualization, carbon dioxide was released. The umbilical site was closed with 0-Vicryl to approximate the fascia. Skin incisions were closed with 4-0 Monocryl in a subcuticular fashion. Steri-Strips were applied. The patient tolerated this procedure well, was extubated and transferred to Recovery in stable condition. [id number]/[facility] #: [id number] JERROD
== END | disposition home or self-care (01) ==
LOC: OR 08:16
PROVIDERS: ATTEND Surgery
DX: K81.1 Chronic cholecystitis (principal); Z87.891 Personal history of nicotine dependence; E10.9 Type 1 diabetes mellitus without complications; Z79.4 Long term (current) use of insulin; E03.9 Hypothyroidism, unspecified; Z85.850 Personal history of malignant neoplasm of thyroid
CPT/HCPCS: 88304; J0690; J1100; J1240; J1885; J2250; J2405; J2704; J3010

== ENCOUNTER 2018-06-15 11:25 | Observation (INO) | payer BC ==
--- NOTE | 2018-06-15 11:47 | ED ---
Neurological HPI - HPI Summary HPI Summary: Patient is a 48 y/o female who presents to the ED c/o confusion. Starting 3 days ago, shes had multiple bouts of confusion. First, she forgot that she had to use a knife to make a peanut butter and jelly sandwich for five minutes. She then forgot to use a paper towel when cleaning her stove and was instead just using her hand. Patient also states that she forgot how to use a curling iron for her hair. When she texts she has difficulty remembering the proper words, although she knows what she wants to say. 2 days ago she began having numbness of her lips and mild paresthesia of her LUE. She currently feels anxious, but denies any weakness of her BLE. She denies any prior history of confusion. PMHx DM I, anxiety, migraines. She states that her BG has been normal the past few days. She is an occasional smoker and alcohol user, but denies any drug use. Her mother had a stroke around 50 y/o. - History of Current Complaint Chief Complaint: EDNeurologicalDeficit Stated Complaint: CONFUSED, DIFFICULTY REMEMBERING THINGS PER PT Hx Obtained From: Patient Hx Last Menstrual Period: 03/10/1999 Onset/Duration: Gradual Onset, Started days ago - 3, Still Present Timing: Intermittent Episodes Lasting: - several minutes Neurological Deficit Location: Generalized Pain Intensity: 3 Pain Scale Used: 0-10 Numeric Character: Numbness/Tingling, Confusion Frequency: Episodes x___ - several Aggravating: Nothing Alleviating: Nothing TPA Considered: No - Additional Pertinent History Primary Care Physician: [id number] - Allergy/Home Medications Allergies/Adverse Reactions: Allergies Allergy/AdvReac Type Severity Reaction Status Date / Time Penicillins Allergy Intermediate Hives, Verified 04/14/18 08:49 swelling canagliflozin Allergy Muscle Ache Verified 04/14/18 08:49 Home Medications: Home Medications Insulin Lispro [Humalog Kwikpen U-200] 4 - 8 units SUBCUT TID WITH MEALS [History Confirmed 06/15/18] Insulin Lispro [Humalog Kwikpen U-200] 5 units SUBCUT .WITH SNACKS 06/15/18 [ History Confirmed 06/15/18] PMH/Surg Hx/FS Hx/Imm Hx Endocrine/Hematology History: Reports: Hx Diabetes - type I FINGER STICKS QID WITH COVERAGE, Hx Thyroid Disease - THYROID CANCER 2008 Denies: Hx Anticoagulant Therapy Cardiovascular History: Denies: Hx Congestive Heart Failure, Hx Deep Vein Thrombosis, Hx Hypercholesterolemia, Hx Hypertension, Hx Myocardial Infarction, Hx Pacemaker/ ICD, Other Cardiovascular Problems/Disorders Respiratory History: Denies: Hx Asthma, Hx Chronic Obstructive Pulmonary Disease (COPD), Hx Lung Cancer, Hx Pneumonia, Hx Pulmonary Embolism, Other Respiratory Problems/ Disorders GI History: Reports: Other GI Disorders - GASTROPORESIS Denies: Hx Gall Bladder Disease, Hx Gastrointestinal Bleed, Hx Ulcer, Hx Urosepsis History: Denies: Hx Kidney Stones, Hx Renal Disease Sensory History: Reports: Hx Contacts or Glasses - GLASSES for work Denies: Hx Hearing Aid Opthamlomology History: Reports: Hx Contacts or Glasses - GLASSES for work Neurological History: Reports: Hx Migraine - PAST Denies: Hx Dementia, Hx Seizures, Hx Transient Ischemic Attacks (TIA), Other Neuro Impairments/Disorders Psychiatric History: Reports: Hx Anxiety Denies: Hx Depression, Hx Panic Disorder, Hx Schizophrenia, Hx Bipolar Disorder - Cancer History Cancer Type, Location and Year: thyroid 2008 Hx Chemotherapy: No - radiation Hx Radiation Therapy: Yes - THYROID CANCER 2008 - Surgical History Surgery Procedure, Year, and Place: L5 S1 Micro Diskectomy, 2006, 2012 [facility]. Thyroidectomy, 2008, [facility]. Hysterectomy, 2001, [place], TOTAL OF 4 BACK SURGERIES. right wrist surgery 2016. 2018, trigger finger right hand, [facility]. LEFT HAND TRIGGER FINGER [facility] Hx Anesthesia Reactions: No Infectious Disease History: No Infectious Disease History: Denies: Hx Clostridium Difficile, Hx Hepatitis, Hx Human Immunodeficiency Virus (HIV), Hx of Known/Suspected MRSA, Hx Shingles, Hx Tuberculosis, Hx Known/ Suspected VRE, Hx Known/Suspected VRSA, History Other Infectious Disease, Traveled Outside the [place] in Last 30 Days - Family History Known Family History: Positive: Cardiac Disease, Hypertension, Diabetes, Other - stroke - mother around 50 y/o - Social History Alcohol Use: Rare Alcohol Amount: 2 per month Hx Substance Use: No Substance Use Type: Reports: None Hx Tobacco Use: Yes Smoking Status (MU): Current Some Day Smoker Type: Cigarettes Amount Used/How Often: 1/2 ppd, smoked off and on 30 years Length of Time of Smoking/Using Tobacco: quit in 1999 Have You Smoked in the Last Year: No Review of Systems Neurological: Other - confusion, aphasia with texting Positive: Paresthesia - LUE, Numbness - lips. Negative: Weakness - BLE Positive: Anxious All Other Systems Reviewed And Are Negative: Yes Physical Exam - Summary Physical Exam Summary: VITAL SIGNS: Reviewed. GENERAL: Patient is a well-developed and nourished FEMALE who is lying comfortable in the stretcher.Patient is not in any acute respiratory distress. Mildly anxious appearing. HEAD AND FACE: No signs of trauma. No ecchymosis, hematomas or skull depressions. No sinus tenderness. EYES: PERRLA, EOMI x 2, No injected conjunctiva, no nystagmus. No photophobia. EARS: Hearing grossly intact. Ear canals and tympanic membranes are within normal limits. MOUTH: Oropharynx within normal limits. NECK: Supple, trachea is midline, no adenopathy, no JVD, no carotid bruit, no c- spine tenderness, neck with full ROM. No meningeal signs, no Kernig's or brudzinskis signs. CHEST: Symmetric, no tenderness at palpation LUNGS: Clear to auscultation bilaterally. No wheezing or crackles. CVS: Regular rate and rhythm, S1 and S2 present, no murmurs or gallops appreciated. ABDOMEN: Soft, non-tender. No signs of distention. No rebound no guarding, and no masses palpated. Bowel sounds are normal. EXTREMITIES: FROM in all major joints, no edema, no cyanosis or clubbing. NEURO: Alert and oriented x 3. No acute neurological deficits. Speech is normal and follows commands. SKIN: Dry and warm GCS: 15 Triage Information Reviewed: Yes Vital Signs On Initial Exam: Initial Vitals Temp Pulse Resp BP Pulse Ox 97.6 F 93 16 164/91 97 06/15/18 11:29 06/15/18 11:29 06/15/18 11:29 06/15/18 11:29 06/15/18 11:29 Vital Signs Reviewed: Yes Diagnostics - Vital Signs Vital Signs Temp Pulse Resp BP Pulse Ox 06/15/18 11:29 97.6 F 93 16 164/91 97 - Laboratory Result Diagrams: 06/16/18 06:10 06/16/18 06:07 Lab Statement: Any lab studies that have been ordered have been reviewed, and results considered in the medical decision making process. - Radiology CXR Radiology Interpretation Completed By: Radiologist Summary of Radiographic Findings: NO EVIDENCE FOR ACTIVE CARDIOPULMONARY DISEASE. ED physician reviewed radiology report. Brain MRI Radiology Interpretation Completed By: Radiologist Summary of Radiographic Findings: NO RESTRICTED DIFFUSION TO SUGGEST ACUTE INFARCT. ED physician reviewed radiology report. Head MRA Radiology Interpretation Completed By: Radiologist Summary of Radiographic Findings: NO ANEURYSM, VASCULAR MALFORMATION, OCCLUSION , OR STENOSIS OF THE VISUALIZED INTRACRANIAL CIRCULATION. ED physician reviewed radiology report. Neck MRA Radiology Interpretation Completed By: Radiologist Summary of Radiographic Findings: NO INTERNAL CAROTID ARTERY STENOSIS BY NASCET CRITERIA. ED physician reviewed radiology report. - CT Brain CT CT Interpretation Completed By: Radiologist Summary of CT Findings: NO ACUTE INTRACRANIAL PATHOLOGY. ED physician reviewed radiology report. - EKG 11:37 Cardiac Rate: Tachycardia - 106 bpm EKG Rhythm: Sinus Tachycardia ST Segment: Normal Summary of EKG Findings: Nl axis NIH Scale - NIH Scale Level of Consciousness: Alert/Keenly Responsive Ask Patient the Month and His/Her Age: Both Correct Ask Pt to Open/Close Eyes and Nuclear Supervising Operator/Release Non-Paretic Hand: Both Correctly Best Gaze (Only Horizontal Eye Movement): Normal Visual Field Testing: No Visual Loss Facial Paresis-Pt to Smile & Close Eyes or Grimace Symmetry: Normal/Symmetrical Motor Function - Right Arm: No Drift-Holds 10 Seconds Motor Function - Left Arm: No Drift-Holds 10 Seconds Motor Function - Right Leg: No Drift-Holds 10 Seconds Motor Function - Left Leg: No Drift-Holds 10 Seconds Limb Ataxia-Must be out of Proportion to Weakness Present: Absent Sensory (Use Pinprick to Test Arms/Legs/Trunk/Face): Normal Best Language (Describe Picture, Name Items): No Aphasia Dysarthria (Read Several Words): Normal Extinction and Inattention: No Abnormality Total Score: 0 Course/Dx - Course Assessment/Plan: This patient is a 48-year-old female who presents to the emergency room with a chief complaint of episodes of confusion. The patient reports that since last Friday the patient is be having episodes of confusion which she forgets how to do simple things, she is having episodes of the speech aphasia, and her phone text do not make any sense. Test results without any significant abnormality except for glucose of 375, lactic acid is 3, total protein is 5.7. Urinalysis is negative for UTI in urine toxicology positive for benzodiazepines. Head CT impression negative for an acute interconnected pathology. At this point I discussed my physical exam and findings with and Dr. Underwood from neurology who recommends for the patient to be admitted to the hospital, get an MRA of the head and neck and an MRI of the brain. Test results as above. I discussed my physical exam and findings with Dr. Reina who accepted the patient for admission. The patient is hemodynamically stable alert and oriented 3. - Diagnoses Provider Diagnoses: TIA (transient ischemic attack) - Physician Notifications Discussed Care Of Patient With: Nader Underwood Time Discussed With Above Provider: 12:00 Instructed by Provider To: Other - Recommends an EEG and MRI, and 24-hour observation. At 13:20 Dr. Reina accepts pt for admission. Discharge - Sign-Out/Discharge Documenting (check all that apply): Patient Departure - Admit Patient Received Moderate/Deep Sedation with Procedure: No - Discharge Plan Condition: Stable Disposition: ADMITTED TO [facility] - Billing Disposition and Condition Condition: STABLE Disposition: Admitted to [facility] - Attestation Statements Document Initiated by Scribe: Yes Documenting Scribe: Kimberly Short Provider For Whom Scribe is Documenting (Include Credential): David Delacruz MD Scribe Attestation: I, Kimberly Short, scribed for David Delacruz MD on 06/17/18 at 2131. Scribe Documentation Reviewed: Yes Provider Attestation: The documentation as recorded by the scribeKimberly accurately reflects the service I personally performed and the decisions made by me, David Delacruz MD Status of Scribe Document: Viewed
[2018-06-15 12:36] LABS: ABS Basophils 0 10^3/ul (0-0.2); ABS Eosinophils 0.1 10^3/ul (0-0.6); ABS Lymphocytes 1.9 10^3/ul (1.0-4.8); ABS Monocytes 0.4 10^3/ul (0-0.8); ABS Neutrophils 3.7 10^3/ul (1.5-7.7); ABS Nucleated RBC 0 10^3/ul; Eosinophil % 1.3 %; Hematocrit 38 % (33-41); Hemoglobin 12.2 g/dL (12.0-16.0); Lymphocyte % 30.6 %; Mean Corpuscular HGB Conc 33 g/dL (31-36); Mean Corpuscular Hemoglobin 29 pg (27-31); Mean Corpuscular Volume 90 fL (80-97); Mean Platelet Volume 8.9 fL (7.4-10.4); Nucleated Red Blood Cells % 0.1; Platelet Count 192 10^3/uL (150-450); Red Blood Count 4.17 10^6 /uL (3.70-4.87); Red Cell Distribution Width 14 % (10.5-15); White Blood Count 6.1 10^3/uL (3.5-10.8)
[2018-06-15 12:50] LABS: INR 0.75 (0.77-1.02)
[2018-06-15 12:51] LABS: ALT 33 U/L (7-52); AST 61 U/L (13-39); Albumin 3.5 g/dL (3.2-5.2); Albumin/Globulin Ratio 1.6 (1-3); Alkaline Phosphatase 103 U/L (34-104); Anion Gap 7 mmol/L (2-11); BUN/Creatinine Ratio 26.9 (8-20); Blood Urea Nitrogen 21 mg/dL (6-24); CO2 Carbon Dioxide 29 mmol/L (22-32); Calcium 8.8 mg/dL (8.6-10.3); Chloride 101 mmol/L (101-111); Cholesterol 234 mg/dL; EGFR African American 94.6 (>60); EGFR Non-African American 78.2 (>60); Globulin 2.2 g/dL (2-4); Glucose 375 mg/dL (70-100); HDL Cholesterol 63.9 mg/dL; LDL Cholesterol 110 mg/dL; Potassium 3.8 mmol/L (3.5-5.0); Sodium 137 mmol/L (135-145); Total Protein 5.7 g/dL (6.4-8.9); Triglycerides 303 mg/dL
[2018-06-15 12:59] LABS: Urine Appearance Clear; Urine Bilirubin Negative (Negative); Urine Blood Negative (Negative); Urine Color Yellow; Urine Glucose 3+(>=500 mg/dL) (Negative); Urine Ketones Negative (Negative); Urine Nitrite Negative (Negative); Urine Protein Negative (Negative); Urine Specific Gravity 1.022 (1.010-1.030); Urine Urobilinogen Negative (Negative)
[2018-06-15 13:11] LABS: Alcohol < 10 mg/dL (<10)
[2018-06-15 13:28] LABS: Barbiturates Urine Screen None Detected (None Detect); Benzodiazepine Urine Screen Presumptive Positive (None Detect); Urine Cannabinoids Screen None Detected (None Detect)
[2018-06-15] MEDS ORDERED: Gadobenate* (CONTRAST) 529 MG/ML 10 ML SDV IV ONE (14:59)
--- NOTE | 2018-06-15 15:42 | CONS ---
CONSULTATION REPORT: DATE OF CONSULT: 06/15/18 PATIENT OF: Dr. Delacruz. HISTORY OF PRESENT ILLNESS: This is a 48-year-old right-handed woman whom I was asked to evaluate for her brief episodes since Friday, 3 days ago. These episodes were described both by Milvia and also her partner, who I spoke to over the phone. The main feature is that she has difficulty finding words and thinking of things during the episode. She is not staring or unresponsive according to both Milvia and also her partner. Her partner has seen 3 of these , but she has had at least 4 or 5 and they last roughly 3 to 5 minutes. She will forget how to say specific words like pencil and her speech becomes very hesitant. She will also have difficulty remembering how to do things, such as she will spray the stove with the cleaning detergent, then use her hand rather than a paper towel to wipe the stove, or making a peanut butter jelly sandwich, she forgot to how to use a knife in order to do it, or to use a curling iron. About 2 days ago, she has had numbness around both sides of her lips, but not in her cheeks. She has had some intermittent numbness in her left hand; this has been with driving. She feels anxious. There has been no weakness in any of her extremities. Her partner says that she has had no facial droop with this. There has been no staring. There have been no headaches or visual symptoms with this. She has never had prior symptoms such as like this. She has a history of migraines. She has a history of diabetes, type 1 x10 years' time. She has had a history of thyroid cancer, status post radiation to her neck. Her mother had a stroke at about 50. She is a occasional smoker, drinks alcohol socially. There is no drug use. PAST SURGICAL HISTORY: She had a thyroidectomy, hysterectomy, 4 back surgeries , wrist surgery, trigger finger right hand, left ring trigger finger, and L5-S1 diskectomy. MEDICATIONS: Include insulin 12 units 3 times a day with meals and 5 units with snacks. Of note, she has had non-hypoglycemic ketosis recently. SOCIAL HISTORY: She smoked half a pack intermittently for 30 years. REVIEW OF SYSTEMS: Rest of review of systems is negative in all 14 spheres. PHYSICAL EXAM: Vital signs are blood pressure 113/73, respirations 17, pulse 82 , temperature 97.6. She is alert and oriented with normal speech, comprehension , naming was intact including body parts. The repetition was intact. Speech was fluent. Cranial nerves II through XII were intact. Fundi were benign. There is no facial droop. Motor exam revealed normal tone, strength, coordination, finger- to-nose, fine motor, no pronator drift. Sensation intact to light touch. She has subjective feeling of numbness around both her lips, but not in her cheek area. Reflexes were 1+ and equal downgoing toes. Neck: Supple. Chest: Clear. Cardiovascular: Regular rate and rhythm. Abdomen: Soft with positive bowel sounds. DIAGNOSTIC STUDIES/LAB DATA: Her CT scan of her brain was normal. Labs have included normal CBC. INR 0.75. Normal CMP other than lactic acid was 3. LDL was 110. AST 61. UA had 3+ glucose. Toxicology was positive for presumed benzodiazepine. IMPRESSION AND PLAN: Milvia's symptoms sound most likely she is having expressive aphasia repetitively and this may be most likely small transient ischemic attacks in distribution of the left middle cerebral artery, partial branch. She has had radiation to her neck because of her thyroid cancer. She has had diabetes for 10 years' time and so she would be at risk for possible atherosclerotic disease or left carotid stenosis, so we are adding an MRA of head and neck to evaluate this as well as an MRI scan. We will be getting an EEG since seizures would be the other possibility, but the clinical story is more of a transient ischemic attack than seizures, so I would not begin anticonvulsant at this time. However, if the workup is negative and she continues to have frequent spells, we may do a prolonged EEG on her. Thank you for sharing her case. [id number]/[facility] #: [id number] JERROD
[2018-06-15] MEDS ORDERED: Al Hydrox/Mg Hydrox/Simet LIQ* 30 ML UDC PO PRN (16:01)
[2018-06-15] MEDS ORDERED: Acetaminophen TAB* 325 MG PO PRN (16:01)
[2018-06-15] MEDS ORDERED: Magnesium Hydroxide LIQ* 30 ML UDC PO PRN (16:01)
[2018-06-15] MEDS ORDERED: NS 0.9% 1000 ML** 1,000 ML IV.FLUID IVPB ONE (16:17)
[2018-06-15] MEDS ORDERED: ALPRAZolam TAB* 0.25 MG PO PRN (16:24)
[2018-06-15] MEDS ORDERED: Dextrose 50% Syringe 50 ML* 25 GM/50 ML SYRINGE IV PUSH PRN ×2 (16:26→20:06)
--- NOTE | 2018-06-15 17:05 | HP ---
CC: Dr. Gelacio Wiseman HISTORY AND PHYSICAL: ADDENDUM: PRIMARY CARE PROVIDER: Dr. Gelacio Wiseman. HISTORY OF PRESENT ILLNESS: The patient was seen and examined at bedside and the case was reviewed and discussed with SILVIA Little. Ms. 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 Since 4 days ago, she has had intermittent episodes of expressive aphasia and also other episodes of confusion that are described as the patient not remembering how to make a peanut butter and jelly sandwich or another time that she was trying to clean a surface and she pore the bleach on and was wiping it with her hands not with a rag. She also described lip numbness and tingling in her left arm on and off since Friday. The case was discussed with Neurology and the impression is she could have a TIA due to her risk factors, but this could also be a seizure. The plan is for the patient to be admitted for observation to complete her workup including MRI, MRA of the head and neck and echocardiogram with bubble study. We will also order EEG and she will be placed on seizure precautions. PHYSICAL EXAMINATION GENERAL: The patient is a middle-aged lady, sitting up in the ER stretcher, in no acute distress. VITAL SIGNS: Temperature 97.6, heart rate is 87, respiratory rate is 18, oxygen saturation is 97% on room air, blood pressure is 136/85. CHEST: Breath sounds present bilaterally with no added sounds. CVS: Normal S1, S2. Regular rate and rhythm. NEURO: She is alert and oriented x3. Face is symmetric. Cranial nerves II through XII are grossly intact. Strength is 5/5 in all 4 extremities. There is no drift. She describes mild tingling sensation on her lips. PLAN: The patient will be admitted to the telemetry floor for further evaluation as per Neurology recommendations. [id number]/[facility] #: [id number] [facility]
[2018-06-15] MEDS ORDERED: Ibuprofen TAB* 600 MG ONE (17:26)
[2018-06-15] MEDS: Ibuprofen TAB* 600 MG PO PRN (17:29)
[2018-06-15] MEDS: Insulin LISPRO* 1 UNITS UNIT SUBCUT SCH ×2 (18:12→20:55)
[2018-06-15] MEDS ORDERED: Enoxaparin(*) 40 MG/0.4 ML SYR SUBCUT SCH (18:30)
--- NOTE | 2018-06-15 18:36 | HP ---
ATTENDING ADDENDUM NOW INCLUDED ON THIS REPORT CC: Dr. Gelacio Wiseman * HISTORY AND PHYSICAL: DATE OF ADMISSION: 06/15/18 PRIMARY CARE PROVIDER: Dr. Gelacio Wiseman. PROVIDER: SILVIA Little OTHER PROVIDERS: Dr. Underwood. ATTENDING PHYSICIAN: Dr. Juliet Hilliard * (dictated by SILVIA Little). CHIEF COMPLAINT: Difficulty with word finding and confusion x4 days. HISTORY OF PRESENT ILLNESS: Milvia Bowen is a 48-year-old white female with past medical history of diabetes mellitus type 1; anxiety; and follicular thyroid cancer, status post thyroidectomy and radiation therapy, who presents to the emergency department with difficulty with word finding and confusion x4 days. The patient notes that 4 days ago was the worst that her symptoms were presenting, although they have continued for the subsequent 4 days. She had difficulty with finding typical words in conversation and in text messages. Her boyfriend has witnessed this. She notes that she is also having difficulty using her right arm, stating that she frequently is unsure how to use it. For example, she is right-hand dominant, but has had a hard time taking sips of water from a cup with that hand and has been resorting to using her left hand. Regarding her confusion with tasks, she notes that she has gone to make a peanut butter sandwich or put on her makeup and is unsure how to do so and it takes her several minutes to realize she needs to use a makeup brush or a knife to make peanut butter/jelly sandwich. Additionally, she was cleaning in her kitchen and sprayed bin cleaner on her oven and proceeded to wipe her oven with her hand instead of using a cloth or paper towel. She additionally notes that she started having numbness around her lips starting yesterday, which has continued to today. She additionally has had intermittent "tingling" to her left upper extremity. This is not occurring at the time of evaluation. She mentions that she was also feeling lightheaded during the day 4 days ago. She does note that her blood sugar on Friday was so high than her home blood glucose monitoring and read that it was over the limit of being measurable. At the time of evaluation, she denies difficulty breathing, racing heart, palpitations, chest pain, nausea, and vomiting. She does report abdominal pain, which is consistent with her chronic gastroparesis. Also note that the patient does have issues with constipation due to her chronic gastroparesis. She has denied loss of bowel/bladder function, recent falls and head trauma. EMERGENCY DEPARTMENT COURSE: In the emergency department, pertinent labs include lactic acid of 3.0. Vital signs on admission were temperature 97.6, pulse rate 93, respiratory rate 16, oxygen 97% on room air, blood pressure 164/ 91. Blood glucose 375. Hospitalists were asked to evaluate the patient for admission. PAST MEDICAL HISTORY: 1. Diabetes mellitus type 1. 2. Diabetic gastroparesis. 3. Anxiety. 4. Distant history of migraines. 5. Follicular thyroid cancer, status post thyroidectomy and radiation therapy. 6. Hypothyroidism secondary to thyroidectomy. PAST SURGICAL HISTORY: 1. Total thyroidectomy. 2. Hysterectomy. 3. Multiple back surgeries. 4. Trigger finger release. 5. Cholecystectomy. HOME MEDICATIONS: 1. Insulin Levemir 24 units subcu b.i.d. 2. Insulin Humalog 5 units subcu with snacks. 3. Insulin Humalog 4-8 units subcu t.i.d. with meals. 4. Wellbutrin 150 mg p.o. b.i.d. 5. Synthroid 150 mcg p.o. q.a.m. 6. Ibuprofen 600 mg p.o. q.6 p.r.n. 7. Xanax 0.25 mg p.o. q.6 p.r.n. anxiety. ALLERGIES: PENICILLIN, CANAGLIFLOZIN. FAMILY HISTORY: Mother is living at 70 and had stroke in her late 50s or early 60s. Father is living at age 72 and had a [place] in his 40s. SOCIAL HISTORY: The patient is currently attempting to quit smoking and is smoking 4 to 6 cigarettes per week. She drinks less than 1 alcoholic beverage per week. Denies illicit drug use. She works at [employer]. She is not and has 3 children. In the event that she is unable to make medical decisions for herself, her daughter, Pat, is her surrogate medical decision maker. Her phone number is [phone]. REVIEW OF SYSTEMS: An 11-point review of systems was completed and all pertinent positives and negatives are in the HPI. PHYSICAL EXAMINATION GENERAL: A white middle-aged female, lays in hospital stretcher, appearing in no acute distress, daughter at bedside. HEENT: Head: Normocephalic, atraumatic. Eyes: PERRLA. Sclerae anicteric. Visual hudson full by confrontation. There is no nystagmus. ENT: Mucous membranes moist. NECK: Supple and without JVP. RESPIRATORY: Lungs are clear to auscultation throughout. CARDIO: Regular rate and rhythm without murmurs, rubs, or gallops. ABDOMEN: Abdomen is soft, nontender, and nondistended. Normoactive bowel sounds x4 quadrants. EXTREMITIES: No edema or clubbing. NEURO: Cranial nerves II through XII are grossly intact. The patient is alert and oriented x3. Strength is 5/5 in all extremities. Coordination is within normal limits. Attention is within normal limits. Short term memory intact. Sensation to light touch is intact and equal. DIAGNOSTIC STUDIES/LAB DATA: White blood cell 6.1, hemoglobin 12.2, hematocrit 38, platelet count 192. Sodium 137, potassium 3.8, chloride 101, carbon dioxide 29, BUN 21, creatinine 0.78, glucose 375, lactic acid 3.8, calcium 8.8. EKG on 06/15/18: Normal sinus rhythm. Rate is 106 beats per minute. Normal axis. No ST or T-wave changes compared to prior study. Brain CT on 06/15/18. Impression: "No acute intracranial pathology." Gelacio MRI on 06/15/18. Impression: "No restricted diffusion to suggest acute infarct." Head MRA on 06/15/18. Impression: "No aneurysm, vascular malformation, occlusion, or stenosis of the visualized intracranial circulation." Neck MRA on 06/15/18. Impression: "No internal carotid artery stenosis by NASCET criteria." ASSESSMENT AND PLAN: 1. Expressive aphasia, confusion. Transient ischemic attack workup is required. Stroke has been ruled out with head/neck MRA and brain MRI. Carotid US not needed as head/neck MRA was sufficient. Fasting lipids, hemoglobin A1c, echocardiogram with bubble study will be ordered. She will be started on aspirin [address] Underwood has been consulted. The patient will be placed on telemetry. Dr. Underwood would also like to rule out possibility of seizures. Seizure precautions and EEG have been ordered. If EEG demonstrates signs of seizure, then change in Wellbutrin should be considered given that this medication lowers seizure threshold. 2. Elevated lactic acid. The patient does not have an anion gap. The patient does not have any sign of infection. There is no fever, tachycardia or tachypnea. No source of infection. It is possible that lactic acid is elevated due to seizures. The patient will be given a bolus of normal saline and lactic acid will be rechecked in 4 hours to ensure that it is not continuing to elevate. 3. Tobacco use. The patient will be provided with a nicotine patch during her hospital stay, which she has been using at home. 4. Anxiety. The patient will be continued on her home Wellbutrin and Xanax though considerations for change in Wellbutrin as stated above. 5. Hypothyroidism, status post thyroidectomy and radiation therapy. Continue home Synthroid. 6. Diabetes mellitus type 1, complicated by gastroparesis. Give 20 U detemir subQ BID. Using lispro sliding scale and fingersticks a.c. h.s. 7. Fluids, electrolytes, nutrition: The patient will receive 2.5 L normal saline fluid bolus due to elevated lactic acid. Electrolytes are within normal limits. Diet will be consistent carb diet. 8. Code status: Full code. 9. DVT prophylaxis: The patient has a DVT risk score of 2. Lovenox 40 mg subcu daily has been ordered. TIME SPENT: Approximately 50 minutes was spent on this admission, approximately half that time was spent at bedside. This case has been reviewed by my attending, Dr. Juliet Hilliard, and she has agreed with this assessment and plan of care. SILVIA LITTLE ADDENDUM: PRIMARY CARE PROVIDER: Dr. Gelacio Wiseman. HISTORY OF PRESENT ILLNESS: The patient was seen and examined at bedside and the case was reviewed and discussed with SILVIA Little. Ms. 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 Since 4 days ago, she has had intermittent episodes of expressive aphasia and also other episodes of confusion that are described as the patient not remembering how to make a peanut butter and jelly sandwich or another time that she was trying to clean a surface and she pore the bleach on and was wiping it with her hands not with a rag. She also described lip numbness and tingling in her left arm on and off since Friday. The case was discussed with Neurology and the impression is she could have a TIA due to her risk factors, but this could also be a seizure. The plan is for the patient to be admitted for observation to complete her workup including MRI, MRA of the head and neck and echocardiogram with bubble study. We will also order EEG and she will be placed on seizure precautions. PHYSICAL EXAMINATION GENERAL: The patient is a middle-aged lady, sitting up in the ER stretcher, in no acute distress. VITAL SIGNS: Temperature 97.6, heart rate is 87, respiratory rate is 18, oxygen saturation is 97% on room air, blood pressure is 136/85. CHEST: Breath sounds present bilaterally with no added sounds. CVS: Normal S1, S2. Regular rate and rhythm. NEURO: She is alert and oriented x3. Face is symmetric. Cranial nerves II through XII are grossly intact. Strength is 5/5 in all 4 extremities. There is no drift. She describes mild tingling sensation on her lips. PLAN: The patient will be admitted to the telemetry floor for further evaluation as per Neurology recommendations. JULIET Hilliard MD [id number]/CPS #: [id number]/CPS #: [id number] JERROD
[2018-06-15] MEDS: Aspirin 81 mg CHEW TAB* 81 MG TAB.CHEW PO SCH (19:53)
[2018-06-15] MEDS: NS 0.9% 1000 ML** 2,000 ML IV ONE ×2 (20:53→21:59)
[2018-06-15] MEDS: Insulin GLARGINE(*) 1 UNITS UNIT SUBCUT SCH (20:54)
[2018-06-15] MEDS: buPROPion SR TAB.SR* 150 MG PO SCH (20:54)
[2018-06-15] MEDS ORDERED: INSULIN DETEMIR 24 UNIT SQ SCH (21:00)
[2018-06-15] MEDS ORDERED: Nicotine Patch Removal NOTE FOLLOW UP SCH (21:00)
[2018-06-15] MEDS ORDERED: INSULIN DETEMIR 10 UNIT SQ SCH (21:00)
[2018-06-16] MEDS ORDERED: Levothyroxine TAB* 150 MCG TAB PO SCH (06:00)
[2018-06-16 06:20] LABS: ABS Basophils 0 10^3/ul (0-0.2); ABS Eosinophils 0.1 10^3/ul (0-0.6); ABS Lymphocytes 2.9 10^3/ul (1.0-4.8); ABS Monocytes 0.5 10^3/ul (0-0.8); ABS Neutrophils 2.1 10^3/ul (1.5-7.7); ABS Nucleated RBC 0 10^3/ul; Eosinophil % 2.4 %; Hematocrit 36 % (33-41); Hemoglobin 11.2 g/dL (12.0-16.0); Lymphocyte % 51.1 %; Mean Corpuscular HGB Conc 31 g/dL (31-36); Mean Corpuscular Hemoglobin 30 pg (27-31); Mean Corpuscular Volume 96 fL (80-97); Mean Platelet Volume 9.1 fL (7.4-10.4); Nucleated Red Blood Cells % 0.1; Platelet Count 157 10^3/uL (150-450); Red Blood Count 3.78 10^6 /uL (3.70-4.87); Red Cell Distribution Width 15 % (10.5-15); White Blood Count 5.7 10^3/uL (3.5-10.8)
[2018-06-16 06:39] LABS: BUN/Creatinine Ratio 27.8 (8-20); Calcium 7.8 mg/dL (8.6-10.3); EGFR African American 103.7 (>60); EGFR Non-African American 85.7 (>60); HDL Cholesterol 49.7 mg/dL
[2018-06-16] MEDS ORDERED: Nicotine PATCH 21 MG/24 HR* PATCH TRANSDERM SCH (08:00)
[2018-06-16] MEDS: buPROPion SR TAB.SR* 150 MG PO SCH (08:11)
[2018-06-16] MEDS: Aspirin 81 mg CHEW TAB* 81 MG TAB.CHEW PO SCH (08:11)
[2018-06-16] MEDS: Ibuprofen TAB* 600 MG PO PRN ×2 (08:12→15:11)
--- NOTE | 2018-06-16 08:53 | PN ---
Subjective Date of Service: 06/16/18 Interval History: patient reports no further episodes of difficulty speaking or word finding. denies dizziness or slurred speech. denies weakness. denies chest pain or shortness of breath. denies abd pain n/v/d. Family History: Unchanged from Admission Social History: Unchanged from Admission Past Medical History: Unchanged from Admission Objective Active Medications: Acetaminophen (Tylenol Tab*) 650 mg PO Q4H PRN PRN Reason: FEVER/PAIN Al Hydrox/Mg Hydrox/Simethicone (Maalox Plus*) 30 ml PO Q6H PRN PRN Reason: INDIGESTION Alprazolam (Xanax Tab*) 0.25 mg PO Q6H PRN PRN Reason: ANXIETY Aspirin (Aspirin 81 Mg Chew Tab*) 81 mg PO DAILY [facility] Last Admin: 06/16/18 08:11 Dose: 81 mg Bupropion HCl (Wellbutrin Sr Tab*) 150 mg PO BID [facility] Last Admin: 06/16/18 08:11 Dose: 150 mg Dextrose (D50w Syringe 50 Ml*) 12.5 gm IV PUSH .FOR FS < 60 - SS PRN PRN Reason: FS < 60 Enoxaparin Sodium (Lovenox(*)) 40 mg SUBCUT Q24H [facility] Last Admin: 06/15/18 19:56 Dose: 40 mg Ibuprofen (Motrin Tab*) 600 mg PO Q6H PRN PRN Reason: PAIN Last Admin: 06/16/18 08:12 Dose: 600 mg Insulin Glargine (Lantus(*)) 16 units SUBCUT BID [facility] Last Admin: 06/15/18 20:54 Dose: 16 units Insulin Human Lispro (Humalog*) 0 units SUBCUT ACHS [facility]; Protocol Last Admin: 06/15/18 20:55 Dose: 2 units Insulin Human Lispro (Humalog*) 0 units SUBCUT AC [facility]; Protocol Levothyroxine Sodium (Synthroid Tab*) 150 mcg PO QAM@0600 [facility] Last Admin: 06/16/18 05:41 Dose: 150 mcg Magnesium Hydroxide (Milk Of Magnesia Liq*) 30 ml PO Q4H PRN PRN Reason: CONSTIPATION Nicotine (Nicotine Patch 21 Mg/24 Hr*) 1 patch TRANSDERM DAILY@0800 [facility] Last Admin: 06/16/18 08:10 Dose: 1 patch Pharmacy Profile Note (Nicotine Patch Removal Note*) 1 note FOLLOW UP 2100 [facility] Last Admin: 06/15/18 20:57 Dose: 1 note Vital Signs - 8 hr 06/16/18 06/16/18 03:32 07:49 Temperature 97.6 F 97.5 F Pulse Rate 73 78 Respiratory 16 19 Rate Blood Pressure 116/68 122/82 (mmHg) O2 Sat by Pulse 98 100 Oximetry Oxygen Devices in Use Now: None Appearance: appears comfortable resting in bed , no acute distress Eyes: No Scleral Icterus Ears/Nose/Mouth/Throat: Clear Oropharnyx, Mucous Membranes Moist Neck: NL Appearance and Movements; NL JVP, Trachea Midline Respiratory: Symmetrical Chest Expansion and Respiratory Effort, Clear to Auscultation Cardiovascular: NL Sounds; No Murmurs; No JVD, No Edema Abdominal: NL Sounds; No Tenderness; No Distention Extremities: No Edema, No Clubbing, Cyanosis Skin: No Rash or Ulcers Neurological: Alert and Oriented x 3, NL Sensation, NL Gait, NL Muscle Strength and Tone, - - hand process laboratory specialist equal, smile equal. Nutrition: Taking PO's Result Diagrams: 06/16/18 06:10 06/16/18 06:07 Assess/Plan/Problems-Billing Assessment: - Patient Problems (1) Expressive aphasia Status: Acute Code(s): R47.01 - APHASIA SNOMED Code(s): 504680845 Comment: suspect this is related to TIA - seen and consulted by neurology- recommended - weaning and discontinuing wellbutrin as this can lower the seizure threshold - will decrease to 150 mg po daily and refer to PMD for discontinuation and medication change - neurology recommended plavix 75 mg po daily for 30 days then stop, ASA 81 mg po daily follow up with neurology in 4-6 weeks - should callthe office any further episodes of word finding difficulty MRI- WNL MRA-WNL ECHO -WNL EEG - WNL (2) Elevated lactic acid level Status: Acute Code(s): R79.89 - OTHER SPECIFIED ABNORMAL FINDINGS OF BLOOD CHEMISTRY SNOMED Code(s): 4164618 Comment: suspect this was related to elevated blood sugar patient did not have an anion gap - no signs of infection or sepsis - trending down (3) Diabetes Status: Acute Code(s): E11.9 - TYPE 2 DIABETES MELLITUS WITHOUT COMPLICATIONS SNOMED Code(s): 15112410 Comment: continue lispro ss - resume home meds at discharge (4) Hypothyroidism Status: Acute Code(s): E03.9 - HYPOTHYROIDISM, UNSPECIFIED SNOMED Code(s): 03354180 Comment: - Continue Levothyroxine. (5) DVT prophylaxis Status: Acute Code(s): VDP0248 - SNOMED Code(s): 922468941 Comment: - Lovenox. (6) Full code status Status: Acute Code(s): Z78.9 - OTHER SPECIFIED HEALTH STATUS SNOMED Code(s) : 094008985 Status and Disposition: discharge home
[2018-06-16] MEDS ORDERED: Aspirin 81 mg CHEW TAB* 81 MG TAB.CHEW PO SCH (09:00)
[2018-06-16] MEDS: Insulin LISPRO* 1 UNITS UNIT SUBCUT SCH ×4 (09:00→14:05)
[2018-06-16] MEDS: Insulin GLARGINE(*) 1 UNITS UNIT SUBCUT SCH (09:02)
--- NOTE | 2018-06-16 12:50 | ECHO ---
Patient: SUZY GARCIA [facility] Rec#: [id number] : 1970 Date: 06/16/2018 Age: 48y Height: 168 cm / 66.1 in Weight: 77.1 kg / 169.9 lbs Sex: F BSA: 1.87 Room#: [facility] Admit Date#: 06/15/2018 Type: Inpatient Referring: SHANNAN Reading: Ross Turner MD Returned Item Clerk: Annika Fikn RDCS CC: Gelacio Wiseman MD Transthoracic Echocardiogram Indication: TIA BP: 116/68 HR: 73 Rhythm: NSR Findings History: DM I, Non-hypoglycemic ketosis, thyroid cancer with radiation. Technical Comments: The study quality is good. Completed at 1015. Left Ventricle: The left ventricular chamber size is normal. There is no left ventricular hypertrophy. Basal interventricular septum shows moderate thickening. Global left ventricular wall motion and contractility are within normal limits. There is normal left ventricular systolic function. The estimated ejection fraction is 55-60%. Normal left ventricular diastolic filling is observed. Left Atrium: The left atrial chamber size is normal. Right Ventricle: Moderator Band present. The right ventricular cavity size is normal. The right ventricle wall thickness is mildly increased. The right ventricular global systolic function is normal. Right Atrium: The right atrial cavity size is normal. Interatrial septum appears intact without evidence of shunting. The bubble study is negative. A patent foramen ovale is not demonstrated with color Doppler and agitated contrast. Aortic Valve: The aortic valve is trileaflet. There is no evidence of aortic valve thickening. There is no evidence of aortic regurgitation. There is no evidence of aortic stenosis. Mitral Valve: The mitral valve leaflets are mildly thickened. There is a trace of mitral regurgitation. There is no evidence of mitral stenosis. Tricuspid Valve: The tricuspid valve leaflets are normal. There is trace tricuspid regurgitation. Unable to estimate the right ventricular systolic pressure. There is no tricuspid stenosis. Pulmonic Valve: The pulmonic valve appears normal. There is a trace pulmonic regurgitation. There is no pulmonic stenosis. Pericardium: There is no significant pericardial effusion. A pericardial fat pad is visualized. Aorta: There is no dilatation of the ascending aorta. There is no dilatation of the aortic arch. The aortic root is normal in size. Pulmonary Artery: The main pulmonary artery appears normal. Venous: The inferior vena cava is dilated. There is an approximate 50% respiratory change in the inferior vena cava dimension. Contrast: Normal saline was used as contrast for the bubble study. Images 98 and 99. Intravenous contrast was used to help determine presence of intracardiac shunting. Summary: There was not any prior study for comparison. Conclusions There is no left ventricular hypertrophy. Global left ventricular wall motion and contractility are within normal limits. The estimated ejection fraction is 55-60%. The right ventricular global systolic function is normal. A patent foramen ovale is not demonstrated with color Doppler and agitated contrast. There is no evidence of aortic stenosis. There is a trace of mitral regurgitation. There is trace tricuspid regurgitation. Unable to estimate the right ventricular systolic pressure. There is no significant pericardial effusion. Measurements Name Value Normal Range RVIDd (AP) 2D 3.4 cm (0.9 - 2.6) RVDdMajor (2D) 3.5 cm (2.2 - 4.4) RVAW (2D) 0.6 cm (0.2 - 0.5) RAd ISD 4CH 4.4 cm (3.4 - 4.9) RA (A4C)W 4.4 cm (2.9 - 4.6) IVSd (2D) 1 cm (0.6 - 1) LVPWd (2D) 0.9 cm (0.6 - 1) LVIDd (2D) 4.1 cm (3.6 - 5.4) LVIDs (2D) 2.8 cm - LV FS (2D) 30 % (25 - 45) Aortic Annulus 2.2 cm (1.4 - 2.6) Ao root diameter (2D) 3.1 cm (2.1 - 3.5) Ascending Ao 3.1 cm (2.1 - 3.4) Aortic arch 2.4 cm (1.8 - 3.4) LA dimension (AP) 2D 3.1 cm (2.3 - 3.8) LAd ISD 4CH 4.6 cm (2.9 - 5.3) LA ISD 4CH W 4.3 cm (2.5 - 4.5) Name Value Normal Range LA ESV BP (A/L) index 27 ml/m2 - Name Value Normal Range MV E-wave Vmax 1 m/sec - MV deceleration time 225 msec - MV A-wave Vmax 0.9 m/sec - MV E:A ratio 1.1 ratio - LV septal e' Vmax 0.09 m/sec - LV lateral e' Vmax 0.09 m/sec - LV E:e' septal ratio 11.1 ratio - LV E:e' lateral ratio 11.1 ratio - Name Value Normal Range IVC diameter 2.2 cm - Name Value Normal Range PV Vmax 0.8 m/sec - PV peak gradient 2 mmHg -
--- NOTE | 2018-06-16 14:57 | EEG ---
ELECTROENCEPHALOGRAPHY: DATE OF STUDY: DATE OF DICTATION: 06/16/18 PATIENT OF: SILVIA Little CLINICAL PROBLEM: This is a 48-year-old woman being evaluated for multiple episodes of aphasia and confusion. This study was done to evaluate for possible seizures. MEDICATIONS: Include: 1. Lovenox. 2. Synthroid. 3. Maalox. 4. Xanax. 5. Humalog. 6. Nicotine patch. 7. Aspirin. 8. Wellbutrin. 9. Lantus. REPORT: With the patient awake, background cerebral activity consists of moderate amplitude, posterior dominant admixed reveals alpha and beta range frequencies. The patient briefly falls asleep with background consisting of delta and theta activity with normal patterns of sleep including vertex waves being present. No epileptiform potentials, focal abnormalities, or major asymmetries of background are noted. CLINICAL IMPRESSION: This awake and briefly asleep EEG is within normal limits. [id number]/[facility] #: [id number] MTDBhavani
[2018-06-16 15:57] VITALS: BP 118/73
[2018-06-16] MEDS ORDERED: Clopidogrel TAB* 75 MG PO ONE (16:25)
--- NOTE | 2018-06-16 23:54 | PN ---
PROGRESS NOTE: DATE OF SERVICE: 06/16/18 PATIENT OF: Ida Celeste, MARCIN. HISTORY: Milvia has had no further episodes and in retrospect, she said she was having 4 to 8 from Friday until Friday. She has no current complaints now. MEDICATIONS: Include: 1. Maalox. 2. Xanax. 3. Aspirin 81 mg. 4. Wellbutrin. 5. Lovenox. 6. Motrin. 7. Synthroid. 8. Nicotine patch. 9. She has been started on Plavix. PHYSICAL EXAMINATION: On exam, temperature 98, pulse 81, respiratory rate is 16 , blood pressure is 118/73. She is alert and oriented with normal speech and comprehension. Cranial nerves II through XII are intact. Motor exam reveals normal tone and strength. Chest: Clear. Cardiovascular: Regular rate and rhythm. Abdomen: Soft, positive bowel sounds. DIAGNOSTIC STUDIES: Her EEG, MRI, and MRAs were normal as well as her transthoracic echo. ASSESSMENT AND PLAN: I discussed with her and Ida Celeste that most likely from how it was described, this is a small transient ischemic attack and given her long history of diabetes, I would have her on aspirin and Plavix for a month and then aspirin monotherapy. I discussed that it is impossible to know whether this is less likely a partial seizure. If she continues to have spells, she will call and we would get a prolonged EEG. She is not going to drive for the next few days' time to make sure that things have quieted down, but I do not think this is a seizure, so I think she could drive. I would be glad to see her in the next month or so and I have called into Ida that probably until we have better information to have her off the Wellbutrin since if these are seizures, Wellbutrin can provoke seizures. She also has an LDL that is above 70 and so the treatment would be to begin a statin. She has not tolerated statins in the past and is declining to retry this, and Ida Celeste discussed with her options of treatment including diet and exercise, and I defer to Ida Alonso as the best treatment for her cholesterol if statins are not an option for her. [id number]/[facility] #: [id number] [facility]ITALBhavani
--- NOTE | 2018-06-17 02:48 | DS ---
CC: Dr. Underwood * DISCHARGE SUMMARY: DATE OF ADMISSION: 06/15/18 DATE OF DISCHARGE: 06/16/18 PROVIDER: Ida Alonso NP. PRIMARY CARE PROVIDER: Dr. Gelacio Wiseman. ATTENDING PHYSICIAN WHILE IN THE HOSPITAL: Dr. Raúl Georges * (dictated by Ida Alonso NP). PRIMARY DIAGNOSIS: Transient ischemic attack. SECONDARY DIAGNOSES: 1. Diabetes type 1. 2. Gastroparesis, diabetic. 3. Anxiety. 4. Distant history of migraines. 5. Follicular thyroid cancer, status post thyroidectomy and radiation therapy. 6. Hypothyroidism secondary to thyroidectomy. STUDIES COMPLETED WHILE IN THE HOSPITAL: She had a CT of the brain on . Radiologist's impression: No acute intracranial pathology. She had a chest x-ray on 06/15/18. Radiologist impression: No active cardiopulmonary disease. She had an MRI of the brain on 06/15/18. Radiologist's impression: No restricted diffusion to suggest acute infarct. She had an MRA of the head. Radiologist's impression: No aneurysm, vascular malformation, occlusion, or stenosis of the visualized intracranial circulation. She had an MRA of the neck. Radiologist's impression: No internal carotid artery stenosis by NASCET criteria. She had an electroencephalogram. Clinical impression: This awake and briefly asleep EEG was within normal limits. She had a transthoracic echocardiogram. There was no left ventricular hypertrophy observed. Global left ventricular wall motion and contractility were within normal limits. Estimated ejection fraction was 55% to 60%. The right ventricle global systolic function was normal. A patent foramen ovale was not demonstrated with color Doppler and agitated contrast. There is no evidence of aortic stenosis. There is trace mitral regurgitation, trace tricuspid regurgitation. Unable to estimate the right ventricular systolic pressure. No significant pericardial effusion. She had an electrocardiogram, which showed sinus tachycardia at a rate of 106. DISCHARGE MEDICATIONS: [place] Medications: 1. Plavix 75 mg p.o. daily x30 days. A full prescription was given. 2. Aspirin 81 mg p.o. daily. Changed Home Medications: Wellbutrin was decreased to 150 mg p.o. daily. It is recommended by neurology that this medication be weaned and discontinued to switch to another antidepressant as it does lower the seizure threshold. Continued Home Medications: 1. Lispro insulin 48 units subcu t.i.d. with meals. 2. Levemir 24 units subcu b.i.d. 3. Lispro 5 units subcu with snacks. 4. Levothyroxine 150 mcg p.o. daily. 5. Ibuprofen 600 mg p.o. q.6 hours as needed. This medication should be held while taking Plavix and aspirin. 6. Alprazolam 0.25 mg p.o. q.6 hours p.r.n. 7. Aspirin 81 mg p.o. daily. 8. Acetaminophen 650 mg p.o. q.4 hours as needed. HISTORY OF PRESENT ILLNESS AND HOSPITAL COURSE: Ms. Bowen is a 48-year-old female with past medical history significant for diabetes type 1, diabetic gastroparesis, anxiety, distant history of migraines, history of follicular thyroid cancer; status post thyroidectomy, and hypothyroidism who presented to the emergency room with complaints of difficulty with word finding and speech x4 days as well as confusion. The patient reports that she was having difficulty with typical words in a conversation and text messages. She reports that she was also having difficulty using her right arm and difficulty taking sips of water from a cup. Due to these symptoms, the patient presented to the emergency room for further evaluation. While in the emergency room, the patient had routine lab work drawn. She was found to have lactic acid of 3.0. Her vital signs were within normal limits, mildly elevated blood pressure of 164/91 on admission with an elevated blood glucose of 375. Due to her symptoms of difficulty with word finding and confusion, we were asked to evaluate her for admission. While in the hospital, the patient was seen and evaluated by neurology; Dr. Underwood, as well as has had a CT and MRI of the brain, MRA of the head and neck ; which were within normal limits as well as a transthoracic echocardiogram; which did not show a patent foramen ovale. A complete TIA workup was completed as well as an EEG to rule out any seizure activities. The EEG again was within normal limits. Neurology has suggested that her symptoms are consistent with a TIA and at this time, she is stable for discharge home. The patient will be discharged home. Vital signs are as follows: Blood pressure was 118/73, heart rate 81, respirations 16, O2 saturation 97% on room air, temperature was 98.0. DISCHARGE PLAN: Ms. Bowen will be discharged back home. Activity as tolerated. 1. TIA. She was seen in consultation by neurology, who has recommended that patient be placed on Plavix 75 mg p.o. daily x30 days as well as aspirin 81 mg p.o. daily, which she should continue. The patient was not placed on statin therapy as the patient refused statin therapy due to an intolerance. I would recommend that you repeat a lipid profile in 4 to 6 weeks and consider alternative statin therapy if diet modifications and exercise do not improve her lipid profile. The patient was instructed to call Dr. Underwood's office if she experiences any further episodes of difficulty with word finding and confusion as he has recommended that her symptoms could also be related to seizure activity and has recommended long-term video EEG monitoring. The patient was also instructed by Dr. Underwood not to drive for 3 days. The patient should follow up with neurology in 4 to 6 weeks. She should follow up with her primary care provider in 4 to 7 days. Neurology has also recommended weaning and discontinuing her Wellbutrin and transitioning her to another antidepressant medication. I will decrease her Wellbutrin to 150 mg p.o. daily. Continued weaning and discontinuing process should be handled by her primary care provider as well as switching her antidepressant medication. It is felt by neurology that this medication will decrease her seizure threshold and can increase her risk of having seizures. 2. Diabetes. She should resume her home medications as previously prescribed. 3. Anxiety/depression. The patient's Wellbutrin will be decreased to 150 mg p.o. daily. This should be weaned and discontinued and transitioned to a new medication. 4. Hypothyroidism. The patient should continue on her levothyroxine as previously prescribed. FOLLOWUP: The patient should follow up with her primary care provider in 4 to 7 days. She should follow up with Dr. Underwood in 4 to 6 weeks. She should have repeat lipid profile in 4 to 6 weeks. The patient was instructed to return to the emergency room for any chest pain, shortness of breath, weakness on one side, difficulty speaking, slurred speech, facial asymmetry, dizziness, visual changes or any other concerning symptoms. I have discussed this with my attending, Dr. Raúl Georges; he is in agreement with my plan. CONDITION ON DISCHARGE: Stable. DISPOSITION ON DISCHARGE: Home. TIME SPENT: Time spent on this discharge was approximately 60 minutes, greater than half that time was spent [id number] with the patient discussing my discharge plans and instructions. IDA ALONSO, RADIO PERSONALITY [id number]/[facility] #: [id number] [facility]hav[facility]
--- NOTE | 2018-06-17 19:29 | PN ---
Hospitalist Progress Note Date of Service: 06/17/18 spoke to patient and instructed patient to decrease Welbutrin 150 mg po daily until follow up with Dr. Wiseman next week and then further recommendation as per her primary care.
== END 2018-06-16 17:30 | disposition home or self-care (01) ==
LOC: ED 11:25 → MEDTELE 16:01
PROVIDERS: ADMIT Internal Medicine; ATTEND Internal Medicine
DX: G45.9 Transient cerebral ischemic attack, unspecified (principal); K31.89 Other diseases of stomach and duodenum; E10.43 Type 1 diabetes mellitus with diabetic autonomic (poly)neuropathy; K31.84 Gastroparesis; F41.9 Anxiety disorder, unspecified; Z85.850 Personal history of malignant neoplasm of thyroid; E03.9 Hypothyroidism, unspecified; E89.0 Postprocedural hypothyroidism; Z79.82 Long term (current) use of aspirin; F17.210 Nicotine dependence, cigarettes, uncomplicated; Z88.0 Allergy status to penicillin; Z79.899 Other long term (current) drug therapy; R47.01 Aphasia; R79.89 Other specified abnormal findings of blood chemistry
CPT/HCPCS: 36415; 70450; 70544; 70549; 70551; 71046; 80048; 80053; 80061; 80307; 80320; 81003; 83036; 83605; 84484; 85025; 85610; 86850; 86900; 86901; 93005; 93306; 95819; 96372; 99285; A9270-GY; A9577; G0378; G0480; J1650

== ENCOUNTER → 2018-08-17 08:00 | Day surgery (SDC) | payer BC ==
[~2018-08-17 08:00] MED LIST changes: -Acetaminophen IV 1GM/100ML * 1,000 MG/100 ML VIAL IVPB ONE; +Acetaminophen TAB* 325 MG PO PRN; +Bupivacaine 0.5% W/EPI SDV* 30 ML VIAL ONE; +Clindamycin 900 MG IVPREMIX(* 900 MG/50 ML SDV IV ONE; -Dexamethasone IV* 4 MG/ML 1 ML (4 MG) ONE; -Dextrose 50% Syringe 50 ML* 25 GM/50 ML SYRINGE IV PUSH PRN; -DiMENhydriNATE IV* 50 MG/ML VIAL IV PUSH PRN; -DiMENhydriNATE IV* 50 MG/ML VIAL ONE; -Famotidine IV* 10 MG/ML 2 ML (20 mg) IV ONE; -Famotidine IV* 10 MG/ML 2 ML (20 mg) ONE; -Insulin LISPRO* 1 UNITS UNIT SUBCUT ONE; -Insulin LISPRO* 1 UNITS UNIT SUBCUT PRN; +Ketorolac INJ* 30 MG/ML 1 ML VIAL IV PRN; -Ketorolac INJ* 30 MG/ML 1 ML VIAL ONE; +Lidocaine 1% INJ* 10 MG/ML 30 ML SDV ONE; -Lidocaine 2% PF * 5 ML VIAL ONE; +Midazolam* 1 MG/ML 2 ML VIAL (2 MG) ONE; -Midazolam* 1 MG/ML 5 ML VIAL (5 MG) ONE; +Ondansetron INJ* 2 MG/ML VIAL IV PRN; -Ondansetron INJ* 2 MG/ML VIAL ONE; -ceFAZolin 2 GM PREMIX in ORs 2 GM/50 ML BAG IVPB ONE; +fentaNYL* 50 MCG/ML 2 ML VIAL (100 MCG VIAL) IV PRN; -fentaNYL* 50 MCG/ML 5 ML VIAL (250 MCG VIAL) ONE; -oxyCODONE TAB* 5 MG TAB PO PRN; +oxyCODONE/Acetamin 5/325 MG* TAB PO PRN
[2018-08-17 10:52] VITALS: BP 137/95
--- NOTE | 2018-08-17 12:38 | OP ---
DATE OF OPERATION: 08/17/18 - [facility] DATE OF : 66 SURGEON: Dell Trotter MD PRE-OP DIAGNOSIS: Large lipoma, left upper back. POST-OP DIAGNOSIS: Large lipoma, left upper back. OPERATIVE PROCEDURE: Excision of lipoma, left upper back. INDICATIONS: Large lipoma of left upper back causing symptoms. Risks of bleeding, infection for removal of the lipoma were explained to the patient, who seemed to understand and agreed to the procedure, and all questions were answered. DESCRIPTION OF PROCEDURE: The patient was taken to the operating room and placed in the prone position. Sedation was given by the anesthesiologist. Preoperative antibiotics were given. The area was prepped and draped in the sterile fashion. Time-out was performed indicating correct patient and correct procedure. Skin was anesthetized with plain lidocaine and carried down through the dermis using a #15 blade. Bovie cautery was used to open the fascial plane , which encased a large lipoma approximately 7 cm. EBL minimal. Hemostasis was intact. The entire lipoma was removed and the deep layers of skin were closed with 3-0 Monocryl and the skin was closed with 3-0 Monocryl. Glue was applied to the skin. She tolerated the procedure well. She was taken to the recovery in stable condition. [id number]/[facility] #: [id number] [facility]ITAL[facility]hav[facility]
== END | disposition home or self-care (01) ==
LOC: OR 08:00
PROVIDERS: ATTEND Surgery
DX: D17.9 Benign lipomatous neoplasm, unspecified (principal); Z87.891 Personal history of nicotine dependence; E10.9 Type 1 diabetes mellitus without complications; Z79.4 Long term (current) use of insulin; Z85.850 Personal history of malignant neoplasm of thyroid; F41.8 Other specified anxiety disorders; Z86.73 Personal history of transient ischemic attack (TIA), and cerebral infarction without residual deficits
CPT/HCPCS: 88304; J2250; J2704; J3010

== ENCOUNTER 2019-05-11 08:52 | Emergency (ER) | payer BC ==
--- NOTE | 2019-05-11 09:18 | ED ---
Neurological HPI - HPI Summary HPI Summary: Patient is a 49 y/o F presenting to the ED for a chief complaint of neurological deficit. Patient is present with her . Patient complains of headache for the last week, confusion, impaired speech that began the night of 05/10/19, and anxiety. Her describes the impaired speech as making "no sense." Patient denies numbness, weakness, or gait changes. No aggravating or alleviating factors are reported. She denies recent illness. PMHx is significant for DM Type I for which she takes insulin, thyroid cancer, and migraines in her 20s and 30s. Approximately 1 year ago, patient had a TIA for which she had a workup. Patient describes her impaired speech and confusion as similar to when she had her TIA. During her TIA, she reports having motor weakness, but denies any at the present time. She has a history of taking blood thinners (was on plavix 1 month post TIA) but denies taking blood thinners at the present time. On medical record review, patient had a TIA in June 2018. At that time, patient had an EEG, echocardiogram, MRI, and MRA, which were all normal. - History of Current Complaint Chief Complaint: EDNeurologicalDeficit Stated Complaint: HEADACHE,DIFFICULTY SPEAKING PER Time Seen by Provider: 05/11/19 09:02 Hx Obtained From: Patient Hx Last Menstrual Period: 03/10/1999 Onset/Duration: Sudden Onset, Still Present Timing: Sudden Onset Onset Severity: Severe Current Severity: Severe Neurological Deficit Location: Facial Pain Intensity: 8 Pain Scale Used: 0-10 Numeric Character: Impaired Speech, Confusion Aggravating: Nothing Alleviating: Nothing Associated Signs and Symptoms: Positive: Headache, Confusion, Impaired Speech. Negative: Weakness, Numbness - Additional Pertinent History Primary Care Physician: [id number] - Allergy/Home Medications Allergies/Adverse Reactions: Allergies Allergy/AdvReac Type Severity Reaction Status Date / Time Penicillins Allergy Intermediate Hives, Verified 08/11/18 10:43 swelling canagliflozin Allergy Muscle Ache Verified 08/11/18 10:43 atorvastatin AdvReac Muscle Ache Verified 08/14/18 15:43 simvastatin AdvReac Muscle Ache Verified 08/14/18 15:43 Home Medications: Home Medications ALPRAZolam TAB* [Xanax TAB*] 0.5 mg PO TID PRN 10/31/16 [History Confirmed 05/10] Levothyroxine TAB* [Synthroid 150 MCG TAB*] 400 mcg PO MO 02/16/18 [History Confirmed 05/11/19] Insulin Lispro [Humalog Kwikpen U-200 200 units/ml 3 ml x 2 Pens] 12 units SUBCUT TID 06/15/18 [History Confirmed 05/11/19] Ezetimibe TAB* [Zetia TAB*] 10 mg PO DAILY 05/11/19 [History Confirmed 05/11/19] Fluconazole 150 MG TAB* [Diflucan 150 MG TAB*] 150 mg PO WEEKLY 05/11/19 [ History Confirmed 05/11/19] Levothyroxine Sodium 200 mcg PO SUTUWETHFRSA 05/11/19 [History Confirmed ] Metoclopramide TAB* [Reglan TAB*] 10 mg PO TID 05/11/19 [History Confirmed 05/10] Ondansetron TAB* [Zofran 4 MG Tab*] 4 mg PO Q6H PRN 05/11/19 [History Confirmed 05/11/19] Semaglutide [Ozempic] 0.5 mg SUBCUT WEEKLY 05/11/19 [History Confirmed 05/11/19] buPROPion HCl [Bupropion HCl ER] 200 mg PO BID 05/11/19 [History Confirmed 05/10] PMH/Surg Hx/FS Hx/Imm Hx Previously Healthy: Yes Endocrine/Hematology History: Reports: Hx Diabetes - type I FINGER STICKS QID WITH COVERAGE, Hx Thyroid Disease - THYROID CANCER 2008 Denies: Hx Anticoagulant Therapy Cardiovascular History: Denies: Hx Congestive Heart Failure, Hx Deep Vein Thrombosis, Hx Hypercholesterolemia, Hx Hypertension, Hx Myocardial Infarction, Hx Pacemaker/ ICD, Other Cardiovascular Problems/Disorders Respiratory History: Denies: Hx Asthma, Hx Chronic Obstructive Pulmonary Disease (COPD), Hx Lung Cancer, Hx Pneumonia, Hx Pulmonary Embolism, Other Respiratory Problems/ Disorders GI History: Denies: Hx Gall Bladder Disease, Hx Gastrointestinal Bleed, Hx Ulcer, Hx Urosepsis, Other GI Disorders History: Denies: Hx Kidney Stones, Hx Renal Disease Sensory History: Reports: Hx Contacts or Glasses - GLASSES for work Denies: Hx Legally Blind, Hx Deafness, Hx Hearing Aid Opthamlomology History: Reports: Hx Contacts or Glasses - GLASSES for work Denies: Hx Legally Blind EENT History: Denies: Hx Deafness Neurological History: Reports: Hx Transient Ischemic Attacks (TIA) - June 2018 Denies: Hx Dementia, Hx Migraine, Hx Seizures, Other Neuro Impairments/ Disorders Psychiatric History: Reports: Hx Anxiety, Hx Depression Denies: Hx Panic Disorder, Hx Schizophrenia, Hx Bipolar Disorder - Cancer History Cancer Type, Location and Year: thyroid 2008 Hx Chemotherapy: No - radiation Hx Radiation Therapy: Yes - THYROID CANCER 2008 - Surgical History Surgical History: Yes Surgery Procedure, Year, and Place: L5 S1 Micro Diskectomy, 2006, 2012 [facility]. Thyroidectomy, 2009, [place]. Hysterectomy, 2001, [facility], TOTAL OF 4 BACK SURGERIES. right wrist surgery 2016. 2018, trigger finger right hand, [facility]. LEFT HAND TRIGGER FINGER [facility]. MAIA 2019 [facility] Hx Anesthesia Reactions: No Infectious Disease History: No Infectious Disease History: Denies: Hx Clostridium Difficile, Hx Hepatitis, Hx Human Immunodeficiency Virus (HIV), Hx of Known/Suspected MRSA, Hx Shingles, Hx Tuberculosis, Hx Known/ Suspected VRE, Hx Known/Suspected VRSA, History Other Infectious Disease, Traveled Outside the in Last 30 Days - Family History Known Family History: Positive: Cardiac Disease, Hypertension, Diabetes, Other - stroke - mother around 50 y/o - Social History Occupation: Employed Full-time Lives: With Family Alcohol Use: None Alcohol Amount: 2 per month Hx Substance Use: No Substance Use Type: Reports: None Hx Tobacco Use: Yes Smoking Status (MU): Light Every Day Tobacco Smoker Type: Cigarettes Amount Used/How Often: 1/2 ppd, smoked off and on 30 years Length of Time of Smoking/Using Tobacco: quit in 1999 Have You Smoked in the Last Year: No Review of Systems Negative: Other - Negative gait changes Neurological/Mental Status: Other - Positive confusion and impaired speech Positive: Headache. Negative: Weakness, Numbness Positive: Anxious All Other Systems Reviewed And Are Negative: Yes Physical Exam - Summary Physical Exam Summary: Constitutional: Well-developed, Well-nourished, Alert. (-) Distressed Skin: Warm, Dry HENT: Normocephalic; Atraumatic Eyes: Conjunctiva normal Neck: Musculoskeletal ROM normal neck. (-) JVD, (-) Stridor, (-) Nuchal rigidity Cardio: Rhythm regular, rate normal, Heart sounds normal; Intact distal pulses; Radial pulses are 2+ and symmetric. (-) Murmur Pulmonary/Chest wall: Effort normal. (-) Respiratory distress, (-) Wheezes, (-) Rales Abd: Soft, (-) tenderness, (-) Distension, (-) Guarding, (-) Rebound Musculoskeletal: (-) Edema Lymph: (-) Cervical adenopathy Neuro: Alert, Oriented x3 Psych: Mood and affect Normal Triage Information Reviewed: Yes Vital Signs On Initial Exam: Initial Vitals Temp Pulse Resp BP Pulse Ox 98.5 F 110 18 151/106 98 05/11/19 08:54 05/11/19 08:54 05/11/19 08:54 05/11/19 08:54 05/11/19 08:54 Vital Signs Reviewed: Yes Procedures - Sedation Patient Received Moderate/Deep Sedation with Procedure: No Diagnostics - Vital Signs Vital Signs Temp Pulse Resp BP Pulse Ox 05/11/19 08:54 98.5 F 110 18 151/106 98 - Laboratory Result Diagrams: 05/11/19 09:53 05/11/19 09:53 Lab Statement: Any lab studies that have been ordered have been reviewed, and results considered in the medical decision making process. - CT Brain CT CT Interpretation Completed By: Radiologist Summary of CT Findings: Brain CT IMPRESSION: NO ACUTE INTRACRANIAL PATHOLOGY. Reviewed by Dr. Alegria. NIH Scale - NIH Scale Level of Consciousness: Alert/Keenly Responsive Ask Patient the Month and His/Her Age: Both Correct Ask Pt to Open/Close Eyes and Facility Manager Histology/Release Non-Paretic Hand: Both Correctly Best Gaze (Only Horizontal Eye Movement): Normal Visual Field Testing: No Visual Loss Facial Paresis-Pt to Smile & Close Eyes or Grimace Symmetry: Normal/Symmetrical Motor Function - Right Arm: No Drift-Holds 10 Seconds Motor Function - Left Arm: No Drift-Holds 10 Seconds Motor Function - Right Leg: No Drift-Holds 10 Seconds Motor Function - Left Leg: No Drift-Holds 10 Seconds Limb Ataxia-Must be out of Proportion to Weakness Present: Absent Sensory (Use Pinprick to Test Arms/Legs/Trunk/Face): Normal Best Language (Describe Picture, Name Items): No Aphasia Dysarthria (Read Several Words): Normal Extinction and Inattention: No Abnormality Total Score: 0 Course/Dx - Course Course Of Treatment: 49 y/o F w hx TIA in June 2018, thyroid cancer s/p radiation, DM p/w headache and episode of confusion now resolved. - VSS NAD. Normal neuro exam. CT brain obtained which shows no acute process. Per review of records MRI and MRA were unremarkable last time. Discussed with on-call neurology, who recommends given the patient's normal exam and lack of current symptoms, that she can follow up outpatient. Advised that she should still be taking her 81 mg aspirin which the patient is not taking. Patient was given fluids, Reglan, Toradol. Patient did develop some restlessness w reglan and was given benadryl. Feeling much improved, will f/u w neurology. - Diagnoses Provider Diagnoses: Confusion, Migraine headache - Physician Notifications Discussed Care Of Patient With: Gideon Duckworth - At 10:05, Dr. Gideon Duckworth recommends 81 mg aspirin and follow up with Dr. Underwood. Time Discussed With Above Provider: 10:05 Discharge ED - Sign-Out/Discharge Documenting (check all that apply): Patient Departure - Discharge - Discharge Plan Condition: Stable Disposition: HOME Patient Education Materials: Migraine Headache (ED) Referrals: Gelacio Wiseman MD [Primary Care Provider] - Additional Instructions: You were seen in the emergency department for headache and confusion. Your head CT did not show any abnormalities. Your lab work showed an elevated blood sugar in the 300s. We gave you fluids and medications for your headache. We discussed your case with our on-call neurologist, who recommends taking 81 mg of aspirin daily and following up in the office with Dr. Underwood. Please follow up with your primary care doctor in next 2-3 days and return to emergency department for worsening headaches, fevers, confusion, or concerning symptoms. It was a pleasure taking care of you today. - Billing Disposition and Condition Condition: STABLE Disposition: Home - Attestation Statements Document Initiated by Sydney: Yes Documenting Scribe: Kallie Damon Provider For Whom Sydney is Documenting (Include Credential): Rose Alegria MD Scribe Attestation: Kallie Gautam, scribed for Rose Alegria MD on 05/11/19 at 1416. Scribe Documentation Reviewed: Yes Provider Attestation: The documentation as recorded by the scribe, Kallie Amquy accurately reflects the service I personally performed and the decisions made by me, Rose Alegria MD Status of Scribe Document: Viewed
[2019-05-11 10:03] LABS: ABS Basophils 0.1 10^3/ul (0-0.2); ABS Eosinophils 0.1 10^3/ul (0-0.6); ABS Lymphocytes 2.9 10^3/ul (1.0-4.8); ABS Monocytes 0.5 10^3/ul (0-0.8); ABS Neutrophils 6.2 10^3/ul (1.5-7.7); Eosinophil % 0.9 %; Hematocrit 42 % (35-47); Hemoglobin 14.3 g/dL (12.0-16.0); Lymphocyte % 29.6 %; Mean Corpuscular HGB Conc 35 g/dL (31-36); Mean Corpuscular Hemoglobin 30 pg (27-31); Mean Corpuscular Volume 87 fL (80-97); Mean Platelet Volume 8.4 fL (7.4-10.4); Nucleated Red Blood Cells % 0.1; Platelet Count 229 10^3/uL (150-450); Red Blood Count 4.75 10^6 /uL (3.70-4.87); Red Cell Distribution Width 13 % (10-15); White Blood Count 9.7 10^3/uL (3.5-10.8)
[2019-05-11] MEDS ORDERED: Ketorolac TAB * 10 MG TAB PO ONE (10:03)
[2019-05-11] MEDS ORDERED: NS 0.9% 1000 ML** 1,000 ML IV ONE (10:03)
[2019-05-11] MEDS ORDERED: Metoclopramide IV* 5 MG/ML 2 ML VIAL IV ONE (10:03)
[2019-05-11 10:31] LABS: Albumin 4.1 g/dL (3.2-5.2); Albumin/Globulin Ratio 1.6 (1-3); BUN/Creatinine Ratio 25.3 (8-20); Calcium 10.1 mg/dL (8.6-10.3); EGFR African American 78.9 (>60); EGFR Non-African American 65.2 (>60); Globulin 2.6 g/dL (2-4); Total Bilirubin 0.3 mg/dL (0.2-1.0); Total Protein 6.7 g/dL (6.4-8.9)
[2019-05-11 10:37] LABS: HCG Pregnancy 4.23 mIU/mL
[2019-05-11] MEDS ORDERED: diPHENhydraMINE IV* 50 MG/ML 1 ml VIAL (BENADRYL) IV ONE (10:53)
[2019-05-11 11:14] LABS: Potassium 3.9 mmol/L (3.5-5.0)
[2019-05-11 11:41] VITALS: BP 121/76
== END 2019-05-11 11:40 | disposition home or self-care (01) ==
LOC: ED 08:52
DX: R41.0 Disorientation, unspecified (principal); G43.909 Migraine, unspecified, not intractable, without status migrainosus; R47.89 Other speech disturbances; F41.9 Anxiety disorder, unspecified; E10.9 Type 1 diabetes mellitus without complications; Z79.4 Long term (current) use of insulin; F32.9 Major depressive disorder, single episode, unspecified; Z86.73 Personal history of transient ischemic attack (TIA), and cerebral infarction without residual deficits; Z85.850 Personal history of malignant neoplasm of thyroid; E89.0 Postprocedural hypothyroidism; Z88.0 Allergy status to penicillin; Z88.8 Allergy status to other drugs, medicaments and biological substances; Z87.891 Personal history of nicotine dependence
CPT/HCPCS: 36415; 70450; 80053; 84702; 85025; 96361; 96374; 96375; 99283; J1200; J2765

== ENCOUNTER 2019-05-14 17:08 | Inpatient (IN) | payer BC ==
--- NOTE | 2019-05-14 17:22 | ED ---
HPI Diabetic - HPI Summary HPI Summary: 49 year old F presenting to [facility] with a chief complaint of nausea and vomiting since 2 days ago. Patient reports diarrhea and abdominal pain. Symptoms aggravated by nothing. Symptoms alleviated by nothing. She denies recent travel out of the country. The patient has a history of diabetes. THE HPI IS LIMITED DUE TO LEVEL 5 CAVEAT - The patient is minimally responsive on initial evaluation. - History Of Current Complaint Chief Complaint: EDDiabeticProb Time Seen by Provider: 05/14/19 17:17 Hx Obtained From: Patient, EMS Hx Last Menstrual Period: 03/10/1999 Onset/Duration: Lasting Days Timing: Constant Aggravating: Nothing Alleviating: Nothing Associated Signs & Symptoms: Abdominal Pain, Diarrhea, Vomiting - Allergies/Home Medications Allergies/Adverse Reactions: Allergies Allergy/AdvReac Type Severity Reaction Status Date / Time Penicillins Allergy Intermediate Hives, Verified 08/11/18 10:43 swelling canagliflozin Allergy Muscle Ache Verified 08/11/18 10:43 atorvastatin AdvReac Muscle Ache Verified 08/14/18 15:43 simvastatin AdvReac Muscle Ache Verified 08/14/18 15:43 Home Medications: Home Medications ALPRAZolam TAB* [Xanax TAB*] 0.5 mg PO TID PRN 01/08/16 [History Confirmed 05/13] Levothyroxine TAB* [Synthroid 150 MCG TAB*] 400 mcg PO MO 02/16/18 [History Confirmed 05/14/19] Insulin Lispro [Humalog Kwikpen U-200 200 units/ml 3 ml x 2 Pens] 12 units SUBCUT TID 06/15/18 [History Confirmed 05/14/19] Ezetimibe TAB* [Zetia TAB*] 10 mg PO DAILY 05/11/19 [History Confirmed 05/14/19] Fluconazole 150 MG TAB* [Diflucan 150 MG TAB*] 150 mg PO WEEKLY 05/11/19 [ History Confirmed 05/14/19] Levothyroxine Sodium 200 mcg PO SUTUWETHFRSA 05/11/19 [History Confirmed ] Metoclopramide TAB* [Reglan TAB*] 10 mg PO TID 05/11/19 [History Confirmed 05/13] Ondansetron TAB* [Zofran 4 MG Tab*] 4 mg PO Q6H PRN 05/11/19 [History Confirmed 05/14/19] Semaglutide [Ozempic] 0.5 mg SUBCUT WEEKLY 05/11/19 [History Confirmed 05/14/19] buPROPion HCl [Bupropion HCl ER] 200 mg PO BID 05/11/19 [History Confirmed 05/13] PMH/Surg Hx/FS Hx/Imm Hx Endocrine/Hematology History: Reports: Hx Diabetes - type I FINGER STICKS QID WITH COVERAGE, Hx Thyroid Disease - THYROID CANCER 2008 Denies: Hx Anticoagulant Therapy Cardiovascular History: Denies: Hx Congestive Heart Failure, Hx Deep Vein Thrombosis, Hx Hypercholesterolemia, Hx Hypertension, Hx Myocardial Infarction, Hx Pacemaker/ ICD, Other Cardiovascular Problems/Disorders Respiratory History: Denies: Hx Asthma, Hx Chronic Obstructive Pulmonary Disease (COPD), Hx Lung Cancer, Hx Pneumonia, Hx Pulmonary Embolism, Other Respiratory Problems/ Disorders GI History: Denies: Hx Gall Bladder Disease, Hx Gastrointestinal Bleed, Hx Ulcer, Hx Urosepsis, Other GI Disorders History: Denies: Hx Kidney Stones, Hx Renal Disease Sensory History: Reports: Hx Contacts or Glasses - GLASSES for work Denies: Hx Legally Blind, Hx Deafness, Hx Hearing Aid Opthamlomology History: Reports: Hx Contacts or Glasses - GLASSES for work Denies: Hx Legally Blind Neurological History: Reports: Hx Transient Ischemic Attacks (TIA) - June 2018 Denies: Hx Dementia, Hx Migraine, Hx Seizures, Other Neuro Impairments/ Disorders Psychiatric History: Reports: Hx Anxiety, Hx Depression Denies: Hx Panic Disorder, Hx Schizophrenia, Hx Bipolar Disorder - Cancer History Cancer Type, Location and Year: thyroid 2008 Hx Chemotherapy: No - radiation Hx Radiation Therapy: Yes - THYROID CANCER 2008 - Surgical History Surgery Procedure, Year, and Place: L5 S1 Micro Diskectomy, 2006, 2012 [facility]. Thyroidectomy, 2009, [place]. Hysterectomy, 2002, [place], TOTAL OF 4 BACK SURGERIES. right wrist surgery 2016. 2018, trigger finger right hand, [facility]. LEFT HAND TRIGGER FINGER [facility]. [facility] 2019 [facility] Hx Anesthesia Reactions: No Infectious Disease History: No Infectious Disease History: Denies: Hx Clostridium Difficile, Hx Hepatitis, Hx Human Immunodeficiency Virus (HIV), Hx of Known/Suspected MRSA, Hx Shingles, Hx Tuberculosis, Hx Known/ Suspected VRE, Hx Known/Suspected VRSA, History Other Infectious Disease, Traveled Outside the [place] in Last 30 Days - Family History Known Family History: Positive: Cardiac Disease, Hypertension, Diabetes, Other - stroke - mother around 50 y/o - Social History Alcohol Use: None Alcohol Amount: 2 per month Hx Substance Use: No Substance Use Type: Reports: None Hx Tobacco Use: Yes Smoking Status (MU): Light Every Day Tobacco Smoker Type: Cigarettes Amount Used/How Often: 1/2 ppd, smoked off and on 30 years Length of Time of Smoking/Using Tobacco: quit in 1999 Have You Smoked in the Last Year: No Review of Systems Positive: Abdominal Pain, Vomiting, Diarrhea, Nausea All Other Systems Reviewed And Are Negative: No - Comments Additional Review of Systems Comments: THE ROS IS LIMITED DUE TO LEVEL 5 CAVEAT - The patient is minimally responsive on initial evaluation. Physical Exam - Summary Physical Exam Summary: Constitutional: Well-developed, Well-nourished, lethargic. (-) Distressed Skin: Warm, Dry HENT: Normocephalic; Atraumatic; dry mucous membranes Eyes: Conjunctiva normal Neck: Musculoskeletal ROM normal neck. (-) JVD, (-) Stridor, (-) Tracheal deviation Cardio: Rhythm regular, tachycardic, Heart sounds normal; Intact distal pulses; The pedal pulses are 2+ and symmetric. Radial pulses are 2+ and symmetric. (-) Murmur Pulmonary/Chest wall: Increased respiratory effort. (-) Respiratory distress, (- ) Wheezes, (-) Rales Abd: Soft, (-) tenderness, (-) Distension, (-) Guarding, (-) Rebound Musculoskeletal: (-) Edema Lymph: (-) Cervical adenopathy Neuro: Alert, Oriented x3 Psych: Mood and affect Normal THE PHYSICAL IS LIMITED DUE TO LEVEL 5 CAVEAT - The patient is minimally responsive on initial evaluation. Triage Information Reviewed: Yes Vital Signs On Initial Exam: Initial Vitals Temp Pulse Resp BP Pulse Ox 97.6 F 123 22 131/88 97 05/14/19 17:05/14/19 17:05/14/19 17:05/14/19 17:05/14/19 17:09 Vital Signs Reviewed: Yes Procedures - Sedation Patient Received Moderate/Deep Sedation with Procedure: No Diagnostics - Vital Signs Vital Signs Temp Pulse Resp BP Pulse Ox 05/14/19 17:09 97.6 F 123 22 131/88 97 - Laboratory Result Diagrams: 05/14/19 17:40 05/14/19 17:39 Lab Statement: Any lab studies that have been ordered have been reviewed, and results considered in the medical decision making process. - Radiology Chest x-ray Radiology Interpretation Completed By: ED Physician Summary of Radiographic Findings: NAD. ED physician has reviewed and interpreted this report. - EKG 17:16 Cardiac Rate: Tachycardia - 120 BPM EKG Rhythm: Sinus Tachycardia Summary of EKG Findings: No ischemic changes. Dr. Lynne has reviewed and interpreted this EKG. Diabetic Course/Dx - Course Course Of Treatment: 49 year old F presenting to [facility] with a chief complaint of nausea and vomiting since 2 days ago. Patient reports diarrhea and abdominal pain. Physical exam findings: lethargic, dry mucous membranes, tachycardic, increased respiratory effort. An EKG reveals sinus tachycardia, rate of 120, no ischemic changes. CXR reveals, per ED physician, NAD. Test results with no significant abnormalities except for a sodium of 132, chloride of 87, BUN of 42 , creatinine of 1.59, BUN/creatinine ratio of 26.4, glucose of 1042, lactic acid of 3.9, calcium of 10.4, alkaline phosphatase of 213, VBG pH of <7.00, VBG pCO2 of 26, VBG pO2 of 54, WBC of 34.7, RBC of 4.99, Hct of 51, MCV of 102, MCHC of 29, MPV of 10.5, absolute neuts of 27.6, and absolute monos of 2.1. In the ED course, the patient was given insulin and normal saline. We discussed patient care with Dr. Hoang at 17:31 who recommended admission to the ICU. Patient will be admitted. - Diagnoses Provider Diagnoses: DKA (diabetic ketoacidoses) - Physician Notifications Discussed Care Of Patient With: Ramonita Hoang Time Discussed With Above Provider: 17:31 Instructed by Provider To: Other - Spoke with - Critical Care Time Critical Care Time: 75-104 min - 90 minutes. Discharge ED - Sign-Out/Discharge Documenting (check all that apply): Patient Departure - Discharge Plan Condition: Stable Disposition: ADMITTED TO [facility] - Billing Disposition and Condition Condition: STABLE Disposition: Admitted to [facility] - Attestation Statements Document Initiated by Scribe: Yes Documenting Scribe: Kitty Anguiano Provider For Whom Scribe is Documenting (Include Credential): Erlin Lynne DO Scribe Attestation: IKitty scribed for Erlin Lynne DO on 05/14/19 at 2004. Scribe Documentation Reviewed: Yes Provider Attestation: The documentation as recorded by the scribeKitty accurately reflects the service I personally performed and the decisions made by me, Erlin Lynne DO Status of Scribe Document: Viewed
[2019-05-14] MEDS: NS 0.9% 1000 ML** 1,000 ML IV ONE ×2 (17:29→18:10)
[2019-05-14] MEDS ORDERED: NS 0.9% 1000 ML** 1,000 ML IV ONE ×2 (17:31→18:50)
[2019-05-14 18:04] LABS: ALT 22 U/L (7-52); Albumin 4.4 g/dL (3.2-5.2); Albumin/Globulin Ratio 1.5 (1-3); Alkaline Phosphatase 213 U/L (34-104); BUN/Creatinine Ratio 26.4 (8-20); Blood Urea Nitrogen 42 mg/dL (6-24); Calcium 10.4 mg/dL (8.6-10.3); Chloride 87 mmol/L (101-111); EGFR African American 41.4 (>60); EGFR Non-African American 34.2 (>60); Sodium 132 mmol/L (135-145); Total Protein 7.4 g/dL (6.4-8.9)
[2019-05-14 18:09] LABS: CO2 Carbon Dioxide < 7 mmol/L (22-32)
[2019-05-14 18:29] LABS: Glucose 1042 mg/dL (70-100)
[2019-05-14 18:43] LABS: ABS Basophils 0.1 10^3/ul (0-0.2); ABS Eosinophils 0.1 10^3/ul (0-0.6); ABS Lymphocytes 4.8 10^3/ul (1.0-4.8); ABS Monocytes 2.1 10^3/ul (0-0.8); ABS Neutrophils 27.6 10^3/ul (1.5-7.7); Eosinophil % 0.2 %; Hematocrit 51 % (35-47); Hemoglobin 14.7 g/dL (12.0-16.0); Lymphocyte % 13.9 %; Mean Corpuscular HGB Conc 29 g/dL (31-36); Mean Corpuscular Hemoglobin 30 pg (27-31); Mean Corpuscular Volume 102 fL (80-97); Mean Platelet Volume 10.5 fL (7.4-10.4); Platelet Count 327 10^3/uL (150-450); Red Blood Count 4.99 10^6 /uL (3.70-4.87); Red Cell Distribution Width 15 % (10-15); White Blood Count 34.7 10^3/uL (3.5-10.8)
[2019-05-14] MEDS ORDERED: Insulin REGULAR(*) 1 UNITS UNIT IV PUSH ONE (18:52)
[2019-05-14 18:55] LABS: AST 25 U/L (13-39); Potassium 5.1 mmol/L (3.5-5.0)
[2019-05-14] MEDS: Insulin Infusion 100unit/100mL 100 UNIT/100 ML BAG IV SCH (19:03)
[2019-05-14 19:31] LABS: Phosphorus 9.8 mg/dL (2.5-5.0)
[2019-05-14 20:04] LABS: Urine Appearance Clear; Urine Bilirubin Negative (Negative); Urine Blood 1+ (Negative); Urine Color Yellow; Urine Glucose 3+(>=500 mg/dL) (Negative); Urine Ketones 2+ (Negative); Urine Nitrite Negative (Negative); Urine Protein Negative (Negative); Urine Specific Gravity 1.021 (1.010-1.030); Urine Urobilinogen Negative (Negative)
[2019-05-14] MEDS ORDERED: Ketorolac INJ* 15 MG/ML 1 ML VIAL IV PUSH ONE (20:11)
[2019-05-14 20:12] LABS: Influenza A Molecular Negative (Negative); Influenza B Molecular Negative (Negative)
[2019-05-14 20:12] LABS: Urine Bacteria Absent (Absent); Urine Red Blood Cell Trace(0-2/hpf) (Absent); Urine White Blood Cell Trace(0-5/hpf) (Absent)
[2019-05-14 20:17] LABS: BUN/Creatinine Ratio 26.6 (8-20); Blood Urea Nitrogen 42 mg/dL (6-24); Calcium 8.5 mg/dL (8.6-10.3); Chloride 101 mmol/L (101-111); EGFR African American 41.7 (>60); EGFR Non-African American 34.5 (>60); Sodium 140 mmol/L (135-145)
[2019-05-14] MEDS ORDERED: Acetaminophen TAB* 325 MG PO PRN (20:23)
[2019-05-14 20:33] LABS: CO2 Carbon Dioxide < 7 mmol/L (22-32); Glucose 835 mg/dL (70-100)
[2019-05-14 20:47] LABS: Phosphorus 8.3 mg/dL (2.5-5.0)
[2019-05-14] MEDS ORDERED: traMADol TAB* 50 MG ONE (20:47)
[2019-05-14] MEDS ORDERED: traMADol TAB* 50 MG PO PRN ×2 (20:49→20:50)
--- NOTE | 2019-05-14 21:04 | HP ---
CC: Dr. Fredi Lock; Dr. Hoang * ADMISSION HISTORY AND PHYSICAL: DATE OF ADMISSION: 05/14/19 ATTENDING FOR THIS ADMISSION: Dr. Ramonita Hoang, ICU attending.* (dictated by Darryl Lopez NP) PRIMARY CARE PROVIDER: Dr. Fredi Lock, Endocrinology. CHIEF COMPLAINT: Nausea, vomiting, hyperglycemia, and encephalopathy. HISTORY OF PRESENT ILLNESS: Ms. Bowen is a 49-year-old female patient with known history of type 1 diabetes insulin-dependent, diabetic gastroparesis, history of thyroid cancer, and history of anxiety and depression that presents in the emergency department with her family today with altered mental status and a history of 24 hours of nausea, vomiting, and inability to have any p.o. intake. In the emergency department, she is found to be profoundly encephalopathic and hyperglycemic with a blood sugar of 1042. She has a lactic acidosis and elevated white count of 34.7 and is having difficulty following commands. ICU was notified immediately that the patient is in diabetic ketoacidosis. She has an anion gap that is not reportable. Her VBG shows a pH of less than 7 and a pCO2 of 26 and a bicarb that is undetectable. For these reasons, the patient will be started on insulin drip and admitted to the ICU. PAST MEDICAL HISTORY: As stated above, type 1 diabetes diagnosed in 2008; history of follicular thyroid cancer, also diagnosed in 2008, she was treated with surgical excision and radiation treatment; surgical hypothyroidism; depression and anxiety; and diabetic gastroparesis. PAST SURGICAL HISTORY: Hysterectomy, 4 microdiskectomies, trigger finger release, and thyroid surgery. HOME MEDICATIONS: Family cannot confirm her medication list and the patient is too lethargic to describe her medications, but from the previous record include: 1. Wellbutrin 200 mg p.o. b.i.d. 2. Ozempic 0.5 mg subcu weekly. 3. Zofran 4 mg p.o. q.6 hours as needed. 4. Reglan 10 mg p.o. 3 times daily. 5. Synthroid 400 mcg p.o. on Friday; 200 mcg Friday, Friday, Friday, , Friday, Friday. 6. Humalog 12 units subcu 3 times daily. 7. Diflucan 150 mg p.o. weekly. 8. Zetia 10 mg p.o. daily. 9. Xanax 0.5 mg p.o. 3 times a day as needed. ALLERGIES: PENICILLIN and CANAGLIFLOZIN. FAMILY HISTORY: Significant for father with coronary artery disease and an IA in his 40s. Mother with a CVA in her 60s. SOCIAL HISTORY: She is a former smoker. Uses alcohol recreationally. She is not . She has 3 grown children. Her surrogate decision maker is her daughter Pat, telephone number is [phone]. REVIEW OF SYSTEMS: Level 5 caveat. The patient is currently not following commands, unable to obtain. PHYSICAL EXAMINATION GENERAL: The patient is lethargic, but otherwise a well-nourished white female , in a moderate amount of distress. HEENT: The patient is atraumatic, normocephalic. PERRLA. Nonicteric sclerae. Pupillary response is brisk. NECK: Supple, nontender. No JVD noted. No carotid bruits auscultated. LUNGS: Clear bilaterally to auscultation. She is visibly tachypneic with increased work of breathing. No rales or rhonchi noted. CARDIOVASCULAR: S1, S2 present. No murmurs, gallops, or rubs noted. Rate and rhythm are currently tachycardic. ABDOMEN: Soft, nontender, nondistended. No tympany. Positive bowel sounds noted in all 4 quadrants. : Deferred. MUSCULOSKELETAL: There is no clubbing, no cyanosis, no pedal edema. She has + 2 distal pulses palpable. Full range of motion. NEUROLOGIC: The patient is having difficulty following commands. She does open her eyes to verbal and tactile stimulation and answers to her name, but some of her speech is incomprehensible. She was able to distract to pain. Did not squeeze my hand but was able to lift her legs and open her eyes and try to track my voice. DIAGNOSTIC STUDIES/LAB DATA: Imaging: Chest x-ray that was obtained in the ED is pending official read, with my read appears to be grossly normal with no acute cardiopulmonary defects noted. Laboratories: WBCs 34.7, RBCs 4.99, hemoglobin 14.7, hematocrit 51, MCV 102, MCH 30, platelets 327. Sodium 132, potassium 5.1, chloride 87, CO2 less than 7 , anion gap nonreportable, BUN 42, creatinine 1.59, GFR 34.2, BUN/creatinine ratio 26.4, glucose 1042, lactic acid 3.9, calcium 10.4. Bilirubin 0.40, AST 25 , ALT 22, alk phos 213. CRP 3.20. Total protein 7.4, albumin 4.4, globulin 3.0 , albumin globulin ratio 1.5. Venous blood gas, pH less than 7, pCO2 of 26, pO2 of 54. Bicarb is too numerous to calculate and O2 saturation 75.4. IMPRESSION: Ms. Bowen is a 49-year-old female with a complex history including type 1 diabetes and diabetic gastroparesis, who presents in the emergency department today in diabetic ketoacidosis. PLAN: The patient will be admitted to the ICU. 1. DKA. The patient has been given a 2 L fluid bolus in the emergency department. I have given her 10 units of insulin as her insulin drip has not been mixed yet. She has received 10 units IV regular insulin in the ED. Her insulin drip will be started at 0.1 units/kg/hour. Her blood sugars will be checked hourly. Basic metabolic panel will be checked every 2 hours for the first 4 hours and then every 4 hours thereafter to continually check to see when her gap will close. I have ordered a third liter of fluid given the severity on the high nature of the sugar. She will be on maintenance fluid per our DKA protocol with half normal saline. It should be noted that her corrected sodium is 147. I am pending a phosphorus level currently, which has not been checked yet. Repeating a lactic acid at 9 p.m. In the morning, we will also recheck magnesium and phosphorus levels. It should be noted that rapid influenza A and B were checked in the ED as well as blood cultures being drawn. I suspect her lactic acidosis is completely driven at this time by her DKA and dehydration rather than infectious etiology. Her CRP is negative and she is afebrile. I do suggest contacting Dr. Fredi Lock tomorrow after the patient begins to normalize and we appreciate his input on this patient as she is well known to his service. 2. History of nausea and vomiting likely secondary to her chronic diabetic gastroparesis. The patient is on Reglan and Zofran at home. She is currently n.p.o.; however, we will continue her on IV Zofran. 3. History of thyroid cancer and hypothyroidism. The patient has a history of follicular thyroid cancer. She is on levothyroxine. We will give this IV being the patient is n.p.o. and obviously not awake enough to be swallowing pills. We will start her at half dose at 100 mcg daily to start tomorrow. 4. The patient is meeting sepsis criteria given her elevated lactic acid, white count, and tachycardia; however, she does not have end-organ dysfunction. Again, this is all being driven by her dehydration and diabetic ketoacidosis. However, blood cultures have been drawn. We are repeating the lactic acid. She is getting fluid bolus. We will continue to follow her blood cultures. I do not see an indication, however, for antibiotics at this time. 5. For DVT prophylaxis, the patient will be placed on heparin subcu q.8 hours. 6. Diet: NPO. 7. Code status: The patient is a full code. The rest of the patient's course will be determined by further diagnostics, laboratories, and any other input from other providers as warranted during this admission. TIME SPENT: Critical care time spent: 60 minutes on admission planning. This plan of care has been discussed with Dr. Ramonita Hoang, the ICU rock climbing instructor attending on this case, and she is in agreement with this plan. DARRYL LOPEZ, MARCIN [id number]/[facility] #: [id number]
[2019-05-14] MEDS: Heparin VIAL(*) 5000 UNITS/ML VIAL (FIVE THOUSAND) SUBCUT SCH (22:20)
[2019-05-14 22:39] LABS: BUN/Creatinine Ratio 28.6 (8-20); Blood Urea Nitrogen 34 mg/dL (6-24); Calcium 6.8 mg/dL (8.6-10.3); Chloride 98 mmol/L (101-111); EGFR African American 57.9 (>60); EGFR Non-African American 47.8 (>60); Glucose 471 mg/dL (70-100); Sodium 128 mmol/L (135-145)
[2019-05-14 22:41] LABS: Anion Gap 23 mmol/L (2-11); CO2 Carbon Dioxide 7 mmol/L (22-32)
[2019-05-15 00:44] LABS: BUN/Creatinine Ratio 28.7 (8-20); Blood Urea Nitrogen 37 mg/dL (6-24); Calcium 8.7 mg/dL (8.6-10.3); Chloride 104 mmol/L (101-111); EGFR African American 52.7 (>60); EGFR Non-African American 43.6 (>60); Glucose 404 mg/dL (70-100); Sodium 135 mmol/L (135-145)
[2019-05-15 00:49] LABS: Anion Gap 20 mmol/L (2-11); CO2 Carbon Dioxide 11 mmol/L (22-32)
[2019-05-15] MEDS: Ondansetron INJ* 2 MG/ML VIAL IV PRN ×2 (03:57→11:29)
[2019-05-15 04:25] LABS: Hematocrit 41 % (35-47); Hemoglobin 13.5 g/dL (12.0-16.0); Mean Corpuscular HGB Conc 33 g/dL (31-36); Mean Corpuscular Hemoglobin 29 pg (27-31); Mean Corpuscular Volume 89 fL (80-97); Mean Platelet Volume 8.7 fL (7.4-10.4); Platelet Count 276 10^3/uL (150-450); Red Blood Count 4.58 10^6 /uL (3.70-4.87); Red Cell Distribution Width 14 % (10-15)
[2019-05-15 04:44] LABS: Calcium 8.6 mg/dL (8.6-10.3); Magnesium 1.9 mg/dL (1.9-2.7); Potassium 4.1 mmol/L (3.5-5.0)
[2019-05-15 04:50] LABS: BUN/Creatinine Ratio 28.3 (8-20); EGFR African American 57.3 (>60); EGFR Non-African American 47.4 (>60); Phosphorus 2.6 mg/dL (2.5-5.0)
[2019-05-15 04:53] LABS: ABS Basophils 0.2 10^3/ul (0-0.2); ABS Lymphocytes 2.9 10^3/ul (1.0-4.8); ABS Monocytes 1.1 10^3/ul (0-0.8); ABS Neutrophils 18.9 10^3/ul (1.5-7.7); Lymphocyte % 12.5 %; Nucleated Red Blood Cells % 0.1
[2019-05-15] MEDS: Levothyroxine INJ* 100 MCG/5 ML VIAL IV SCH (06:04)
[2019-05-15] MEDS: Heparin VIAL(*) 5000 UNITS/ML VIAL (FIVE THOUSAND) SUBCUT SCH ×3 (06:04→22:05)
[2019-05-15] MEDS: Insulin Infusion 100unit/100mL 100 UNIT/100 ML BAG IV SCH (06:09)
[2019-05-15 08:45] LABS: BUN/Creatinine Ratio 29.3 (8-20); Calcium 8.2 mg/dL (8.6-10.3); EGFR African American 71.6 (>60); EGFR Non-African American 59.1 (>60); Potassium 3.5 mmol/L (3.5-5.0)
[2019-05-15] MEDS ORDERED: fentaNYL* 50 MCG/ML 2 ML VIAL (100 MCG VIAL) IV SLOW PU PRN (09:20)
[2019-05-15] MEDS ORDERED: Insulin GLARGINE(*) 1 UNITS UNIT SUBCUT SCH (10:00)
--- NOTE | 2019-05-15 11:18 | PN ---
<Fanny Jason - Last Filed: 05/15/19 10:48> Progress Note - Progress Note Date of Service: 05/15/19 Note: Progress Note -- Critical Care 24 hour events/significant events: - Remains on insulin drip, also very sleepy - Anion gap is trending down. - WBC trending down but still elevated. However, no signs of infection ROS: ROS unable to be obtained secondary to somnolence Tele: sinus tachycardia Vitals: Vital Signs 05/14/19 05/14/19 05/14/19 17:09 17:13 17:33 Temperature 97.6 F Pulse Rate 123 116 Respiratory 22 29 29 Rate Blood Pressure 131/88 131/88 (mmHg) O2 Sat by Pulse 97 97 Oximetry 05/14/19 05/14/19 05/14/19 17:45 18:00 18:13 Temperature Pulse Rate 119 Respiratory 37 25 23 Rate Blood Pressure 129/94 136/81 (mmHg) O2 Sat by Pulse 100 Oximetry 05/14/19 05/14/19 05/14/19 19:00 19:14 19:17 Temperature 96.9 F Pulse Rate 124 124 Respiratory 25 19 23 Rate Blood Pressure 115/80 115/80 (mmHg) O2 Sat by Pulse 100 100 Oximetry 05/14/19 05/14/19 05/14/19 19:41 19:45 19:57 Temperature 97.6 F Pulse Rate 129 129 127 Respiratory 9 29 39 Rate Blood Pressure 143/88 164/96 164/96 (mmHg) O2 Sat by Pulse 99 99 95 Oximetry 05/14/19 05/14/19 05/14/19 20:00 20:15 20:30 Temperature 97.4 F Pulse Rate 127 126 126 Respiratory 38 29 33 Rate Blood Pressure 119/81 134/79 113/69 (mmHg) O2 Sat by Pulse 98 98 95 Oximetry 05/14/19 05/14/19 05/14/19 20:45 21:00 21:15 Temperature Pulse Rate 122 125 122 Respiratory 26 27 21 Rate Blood Pressure 124/80 134/74 132/92 (mmHg) O2 Sat by Pulse 99 99 98 Oximetry 05/14/19 05/14/19 05/14/19 21:30 21:45 22:00 Temperature Pulse Rate 119 114 117 Respiratory 28 28 16 Rate Blood Pressure 118/75 122/82 140/83 (mmHg) O2 Sat by Pulse 98 98 98 Oximetry 05/14/19 05/14/19 05/14/19 22:15 22:30 22:45 Temperature Pulse Rate 118 115 116 Respiratory 21 17 19 Rate Blood Pressure 123/82 123/74 126/74 (mmHg) O2 Sat by Pulse 98 98 97 Oximetry 05/14/19 05/14/19 05/15/19 23:00 23:16 00:00 Temperature 100.4 F Pulse Rate 119 123 Respiratory 17 20 Rate Blood Pressure 121/76 123/71 (mmHg) O2 Sat by Pulse 97 95 Oximetry 05/15/19 05/15/19 05/15/19 01:00 02:00 03:00 Temperature Pulse Rate 122 123 118 Respiratory 21 21 19 Rate Blood Pressure 135/75 146/79 150/83 (mmHg) O2 Sat by Pulse 96 96 96 Oximetry 05/15/19 05/15/19 05/15/19 03:32 04:00 05:00 Temperature 99.3 F Pulse Rate 119 111 Respiratory 23 18 Rate Blood Pressure 137/79 128/73 (mmHg) O2 Sat by Pulse 95 95 Oximetry 05/15/19 05/15/19 05/15/19 06:00 07:00 07:23 Temperature 99.9 F Pulse Rate 117 117 Respiratory 18 37 Rate Blood Pressure 141/77 132/72 (mmHg) O2 Sat by Pulse 96 96 Oximetry 05/15/19 05/15/19 05/15/19 08:00 09:00 10:00 Temperature Pulse Rate 114 110 105 Respiratory 19 19 15 Rate Blood Pressure 142/77 135/82 126/84 (mmHg) O2 Sat by Pulse 95 96 96 Oximetry Intake and Output Last 24 Hours 05/13/19 05/14/19 05/15/19 05/16/19 06:59 06:59 06:59 07:59 Intake Total 7309 Output Total 2500 Balance 4809 Weight 148 lb 2.41 oz Intake: IV Fluids 4733 D5W 1/2 NS 456 NS (0.45%) 1277 NS (0.9%) 1000 Medicated IV 76 CC - Insulin 76 Oral 2500 Output: Urine 1800 Straight Cath 700 Other: Estimated Void Large Date of Last Bowel 05/15/19 Movement # Bowel Movements 1 Estimated Stool Amount Medium # Voids 1 O2: RA Infusions: D51/2NS @ 125, insulin drip Medications: Acetaminophen (Tylenol Tab*) 650 mg PO Q6H PRN PRN Reason: PAIN - MILD Heparin Sodium (Porcine) (Heparin Vial(*)) 5,000 units SUBCUT Q8HR [facility] Last Admin: 05/15/19 06:04 Dose: 5,000 units Insulin Human Regular (Insulin Regular Iv Infusion 1 Unit/Ml) 100 unit in 100 mls @ 7.258 mls/hr IV .(INITIAL RATE) [facility]; Protocol Stop: 05/15/19 12:00 Last Admin: 05/15/19 06:09 Dose: 7.3 mls/hr Dextrose/Sodium Chloride (D5w 1/2 Ns 1000 Ml Bag*) 1,000 mls @ 125 mls/hr IV PER RATE [facility] Last Admin: 05/15/19 10:28 Dose: 125 mls/hr Insulin Glargine (Lantus(*)) 40 units SUBCUT Q24H [facility] Last Admin: 05/15/19 10:13 Dose: 40 units Insulin Human Lispro (Humalog*) 0 units SUBCUT ACHS [facility]; Protocol Levothyroxine Sodium (Synthroid Inj*) 100 mcg IV 0600 [facility] Last Admin: 05/15/19 06:04 Dose: 100 mcg Ondansetron HCl (Zofran Inj*) 4 mg IV Q4H PRN PRN Reason: NAUSEA/VOMITING Last Admin: 05/15/19 03:57 Dose: 4 mg Tramadol HCl (Ultram*) 25 mg PO Q6H PRN PRN Reason: PAIN - MODERATE Physical Exam: Constitutional: somnolent but wakes to voice, no distress, no diaphoresis Head: normocephalic, atraumatic Eyes: no pallor, no icterus ENT: moist mucous membranes Neck: soft, supple CVS: tachycardic, regular, no murmur Chest/Resp: bilateral air entry, diminished throughout, no rhales, no wheeze, no rhonchi, no acc muscle use Abdomen/GI: soft, nontender, nondistended, BS+ Ext/Msk: warm, pulses+, no edema Skin: intact, warm Neuro: somnolent but opens eyes to voice and follows commands. However, she does fall back asleep quickly. Moving all extremities, no gross focal deficit Labs: Laboratory Results - last 24 hr 05/14/19 05/14/19 05/14/19 17:39 17:39 17:40 WBC 34.7 H RBC 4.99 H Hgb 14.7 Hct 51 H MCV 102 H MCH 30 MCHC 29 L RDW 15 Plt Count 327 MPV 10.5 H Neut % (Auto) 79.5 Lymph % (Auto) 13.9 [place] % (Auto) 6.0 Eos % (Auto) 0.2 Baso % (Auto) 0.4 Absolute Neuts (auto) 27.6 H Absolute Lymphs (auto) 4.8 Absolute Monos (auto) 2.1 H Absolute Eos (auto) 0.1 Absolute Basos (auto) 0.1 Absolute Nucleated RBC 0.0 Immature Gran % 9.0 Neutrophils % 72.0 Band Neutrophils % 7.0 Lymphocytes % 14.0 Monocytes % 5.0 Metamyelocytes % 1.0 Myelocytes % 1.0 Nucleated RBC % 0.0 Normal RBC Morphology Normal VBG pH VBG pCO2 VBG pO2 VBG HCO3 VBG O2 Saturation VBG Base Excess Sodium 132 L Potassium 5.1 H Chloride 87 L Carbon Dioxide < 7 L* Anion Gap Not Reportable BUN 42 H Creatinine 1.59 H Est GFR ( Amer) 41.4 Est GFR (Non-Af Amer) 34.2 BUN/Creatinine Ratio 26.4 H Glucose 1042 H* POC Glucose (mg/dL) Glucose Meter Confirm Lactic Acid 3.9 H* Calcium 10.4 H Phosphorus 9.8 H Magnesium Total Bilirubin 0.40 AST 25 ALT 22 Alkaline Phosphatase 213 H C-Reactive Protein 3.20 Total Protein 7.4 Albumin 4.4 Globulin 3.0 Albumin/Globulin Ratio 1.5 Urine Color Urine Appearance Urine pH Ur Specific [place] Urine Protein Urine Ketones Urine Blood Urine Nitrate Urine Bilirubin Urine Urobilinogen Ur Leukocyte Esterase Urine WBC (Auto) Urine RBC (Auto) Urine Bacteria Urine Glucose Influenza A (Rapid) Influenza B (Rapid) 05/14/19 05/14/19 05/14/19 18:19 19:47 19:55 WBC RBC Hgb Hct MCV MCH MCHC RDW Plt Count MPV Neut % (Auto) Lymph % (Auto) [place] % (Auto) Eos % (Auto) Baso % (Auto) Absolute Neuts (auto) Absolute Lymphs (auto) Absolute Monos (auto) Absolute Eos (auto) Absolute Basos (auto) Absolute Nucleated RBC Immature Gran % Neutrophils % Band Neutrophils % Lymphocytes % Monocytes % Metamyelocytes % Myelocytes % Nucleated RBC % Normal RBC Morphology VBG pH <7.00 L VBG pCO2 26 L VBG pO2 54.0 H VBG HCO3 TNP VBG O2 Saturation 75.4 VBG Base Excess TNP Sodium Potassium Chloride Carbon Dioxide Anion Gap BUN Creatinine Est GFR ( Amer) Est GFR (Non-Af Amer) BUN/Creatinine Ratio Glucose POC Glucose (mg/dL) Glucose Meter Confirm Lactic Acid Calcium Phosphorus Magnesium Total Bilirubin AST ALT Alkaline Phosphatase C-Reactive Protein Total Protein Albumin Globulin Albumin/Globulin Ratio Urine Color Yellow Urine Appearance Clear Urine pH 5.0 Ur Specific [place] 1.021 Urine Protein Negative Urine Ketones 2+ A Urine Blood 1+ A Urine Nitrate Negative Urine Bilirubin Negative Urine Urobilinogen Negative Ur Leukocyte Esterase Negative Urine WBC (Auto) Trace(0-5/hpf) Urine RBC (Auto) Trace(0-2/hpf) Urine Bacteria Absent Urine Glucose 3+(>=500 mg/dl) A Influenza A (Rapid) Negative Influenza B (Rapid) Negative 05/14/19 05/14/19 05/14/19 19:55 20:55 20:55 WBC RBC Hgb Hct MCV MCH MCHC RDW Plt Count MPV Neut % (Auto) Lymph % (Auto) [place] % (Auto) Eos % (Auto) Baso % (Auto) Absolute Neuts (auto) Absolute Lymphs (auto) Absolute Monos (auto) Absolute Eos (auto) Absolute Basos (auto) Absolute Nucleated RBC Immature Gran % Neutrophils % Band Neutrophils % Lymphocytes % Monocytes % Metamyelocytes % Myelocytes % Nucleated RBC % Normal RBC Morphology VBG pH VBG pCO2 VBG pO2 VBG HCO3 VBG O2 Saturation VBG Base Excess Sodium 140 D Potassium TNP Chloride 101 Carbon Dioxide < 7 L* Anion Gap Not Reportable BUN 42 H Creatinine 1.58 H Est GFR ( Amer) 41.7 Est GFR (Non-Af Amer) 34.5 BUN/Creatinine Ratio 26.6 H Glucose 835 H* 699 H* POC Glucose (mg/dL) Glucose Meter Confirm Lactic Acid 3.7 H* Calcium 8.5 L Phosphorus 8.3 H Magnesium Total Bilirubin AST ALT Alkaline Phosphatase C-Reactive Protein Total Protein Albumin Globulin Albumin/Globulin Ratio Urine Color Urine Appearance Urine pH Ur Specific [place] Urine Protein Urine Ketones Urine Blood Urine Nitrate Urine Bilirubin Urine Urobilinogen Ur Leukocyte Esterase Urine WBC (Auto) Urine RBC (Auto) Urine Bacteria Urine Glucose Influenza A (Rapid) Influenza B (Rapid) 05/14/19 05/14/19 05/14/19 22:12 23:17 23:20 WBC RBC Hgb Hct MCV MCH MCHC RDW Plt Count MPV Neut % (Auto) Lymph % (Auto) [place] % (Auto) Eos % (Auto) Baso % (Auto) Absolute Neuts (auto) Absolute Lymphs (auto) Absolute Monos (auto) Absolute Eos (auto) Absolute Basos (auto) Absolute Nucleated RBC Immature Gran % Neutrophils % Band Neutrophils % Lymphocytes % Monocytes % Metamyelocytes % Myelocytes % Nucleated RBC % Normal RBC Morphology VBG pH VBG pCO2 VBG pO2 VBG HCO3 VBG O2 Saturation VBG Base Excess Sodium 128 L D Potassium TNP Chloride 98 L Carbon Dioxide 7 L* Anion Gap 23 H BUN 34 H Creatinine 1.19 H Est GFR ( Amer) 57.9 Est GFR (Non-Af Amer) 47.8 BUN/Creatinine Ratio 28.6 H Glucose 471 H POC Glucose (mg/dL) > 444 H* Glucose Meter Confirm 469 H Lactic Acid Calcium 6.8 L Phosphorus Magnesium Total Bilirubin AST ALT Alkaline Phosphatase C-Reactive Protein Total Protein Albumin Globulin Albumin/Globulin Ratio Urine Color Urine Appearance Urine pH Ur Specific [place] Urine Protein Urine Ketones Urine Blood Urine Nitrate Urine Bilirubin Urine Urobilinogen Ur Leukocyte Esterase Urine WBC (Auto) Urine RBC (Auto) Urine Bacteria Urine Glucose Influenza A (Rapid) Influenza B (Rapid) 05/15/19 05/15/19 05/15/19 00:19 01:24 02:14 WBC RBC Hgb Hct MCV MCH MCHC RDW Plt Count MPV Neut % (Auto) Lymph % (Auto) [place] % (Auto) Eos % (Auto) Baso % (Auto) Absolute Neuts (auto) Absolute Lymphs (auto) Absolute Monos (auto) Absolute Eos (auto) Absolute Basos (auto) Absolute Nucleated RBC Immature Gran % Neutrophils % Band Neutrophils % Lymphocytes % Monocytes % Metamyelocytes % Myelocytes % Nucleated RBC % Normal RBC Morphology VBG pH VBG pCO2 VBG pO2 VBG HCO3 VBG O2 Saturation VBG Base Excess Sodium 135 Potassium TNP Chloride 104 Carbon Dioxide 11 L* Anion Gap 20 H BUN 37 H Creatinine 1.29 H Est GFR ( Amer) 52.7 Est GFR (Non-Af Amer) 43.6 BUN/Creatinine Ratio 28.7 H Glucose 404 H POC Glucose (mg/dL) 330 H 284 H Glucose Meter Confirm Lactic Acid Calcium 8.7 Phosphorus Magnesium Total Bilirubin AST ALT Alkaline Phosphatase C-Reactive Protein Total Protein Albumin Globulin Albumin/Globulin Ratio Urine Color Urine Appearance Urine pH Ur Specific [place] Urine Protein Urine Ketones Urine Blood Urine Nitrate Urine Bilirubin Urine Urobilinogen Ur Leukocyte Esterase Urine WBC (Auto) Urine RBC (Auto) Urine Bacteria Urine Glucose Influenza A (Rapid) Influenza B (Rapid) 05/15/19 05/15/19 05/15/19 03:25 04:09 04:09 WBC 23.0 H RBC 4.58 Hgb 13.5 Hct 41 MCV 89 MCH 29 MCHC 33 RDW 14 Plt Count 276 MPV 8.7 Neut % (Auto) 81.9 Lymph % (Auto) 12.5 [place] % (Auto) 4.9 Eos % (Auto) 0.0 Baso % (Auto) 0.7 Absolute Neuts (auto) 18.9 H Absolute Lymphs (auto) 2.9 Absolute Monos (auto) 1.1 H Absolute Eos (auto) 0.0 Absolute Basos (auto) 0.2 Absolute Nucleated RBC 0.0 Immature Gran % Neutrophils % Band Neutrophils % Lymphocytes % Monocytes % Metamyelocytes % Myelocytes % Nucleated RBC % 0.1 Normal RBC Morphology VBG pH VBG pCO2 VBG pO2 VBG HCO3 VBG O2 Saturation VBG Base Excess Sodium Potassium Chloride Carbon Dioxide Anion Gap BUN Creatinine Est GFR ( Amer) Est GFR (Non-Af Amer) BUN/Creatinine Ratio Glucose POC Glucose (mg/dL) 248 H Glucose Meter Confirm Lactic Acid 1.8 Calcium Phosphorus Magnesium Total Bilirubin AST ALT Alkaline Phosphatase C-Reactive Protein Total Protein Albumin Globulin Albumin/Globulin Ratio Urine Color Urine Appearance Urine pH Ur Specific [place] Urine Protein Urine Ketones Urine Blood Urine Nitrate Urine Bilirubin Urine Urobilinogen Ur Leukocyte Esterase Urine WBC (Auto) Urine RBC (Auto) Urine Bacteria Urine Glucose Influenza A (Rapid) Influenza B (Rapid) 05/15/19 05/15/19 05/15/19 04:09 05:00 06:02 WBC RBC Hgb Hct MCV MCH MCHC RDW Plt Count MPV Neut % (Auto) Lymph % (Auto) [place] % (Auto) Eos % (Auto) Baso % (Auto) Absolute Neuts (auto) Absolute Lymphs (auto) Absolute Monos (auto) Absolute Eos (auto) Absolute Basos (auto) Absolute Nucleated RBC Immature Gran % Neutrophils % Band Neutrophils % Lymphocytes % Monocytes % Metamyelocytes % Myelocytes % Nucleated RBC % Normal RBC Morphology VBG pH VBG pCO2 VBG pO2 VBG HCO3 VBG O2 Saturation VBG Base Excess Sodium 137 Potassium 4.1 Chloride 106 Carbon Dioxide 17 L Anion Gap 14 H BUN 34 H Creatinine 1.20 H Est GFR ( Amer) 57.3 Est GFR (Non-Af Amer) 47.4 BUN/Creatinine Ratio 28.3 H Glucose 260 H POC Glucose (mg/dL) 260 H 242 H Glucose Meter Confirm Lactic Acid Calcium 8.6 Phosphorus 2.6 Magnesium 1.9 Total Bilirubin AST ALT Alkaline Phosphatase C-Reactive Protein Total Protein Albumin Globulin Albumin/Globulin Ratio Urine Color Urine Appearance Urine pH Ur Specific [place] Urine Protein Urine Ketones Urine Blood Urine Nitrate Urine Bilirubin Urine Urobilinogen Ur Leukocyte Esterase Urine WBC (Auto) Urine RBC (Auto) Urine Bacteria Urine Glucose Influenza A (Rapid) Influenza B (Rapid) 05/15/19 08:18 WBC RBC Hgb Hct MCV MCH MCHC RDW Plt Count MPV Neut % (Auto) Lymph % (Auto) [place] % (Auto) Eos % (Auto) Baso % (Auto) Absolute Neuts (auto) Absolute Lymphs (auto) Absolute Monos (auto) Absolute Eos (auto) Absolute Basos (auto) Absolute Nucleated RBC Immature Gran % Neutrophils % Band Neutrophils % Lymphocytes % Monocytes % Metamyelocytes % Myelocytes % Nucleated RBC % Normal RBC Morphology VBG pH VBG pCO2 VBG pO2 VBG HCO3 VBG O2 Saturation VBG Base Excess Sodium 137 Potassium 3.5 Chloride 107 Carbon Dioxide 23 Anion Gap 7 BUN 29 H Creatinine 0.99 H Est GFR ( Amer) 71.6 Est GFR (Non-Af Amer) 59.1 BUN/Creatinine Ratio 29.3 H Glucose 213 H POC Glucose (mg/dL) Glucose Meter Confirm Lactic Acid Calcium 8.2 L Phosphorus Magnesium Total Bilirubin AST ALT Alkaline Phosphatase C-Reactive Protein Total Protein Albumin Globulin Albumin/Globulin Ratio Urine Color Urine Appearance Urine pH Ur Specific [place] Urine Protein Urine Ketones Urine Blood Urine Nitrate Urine Bilirubin Urine Urobilinogen Ur Leukocyte Esterase Urine WBC (Auto) Urine RBC (Auto) Urine Bacteria Urine Glucose Influenza A (Rapid) Influenza B (Rapid) Imaging: Chest xray 3/6: no active cardiopulmonary disease Assessment: 49F with known medical history of type 1 DM, diabetic gastroparesis , and thyroid cancer, presents on 05/14/19 after experiencing AMS and 24hrs of nausea, vomiting, and decreased PO intake. BG on arrival was 1042. She was given 3L IVF and started on insulin drip. Apparently she was recently started on an insulin pump at home but may have been malfunctioning or poorly positioned. - DKA - Lethargy - Nausea Plan: Neuro- - Lethargy: acute but improving. R/t metabolic causes. Will continue to improve. Monitor for changes -Delirium prec; avoid BDZ CVS- - No active issues -Maintain MAP>65 Resp- -Keep sat>92% -Aspiration prec, Pulmonary Toilet, IS ID- - No signs of infection, blood cultures still pending. UA neg for infection - WBC continues to trend down and is afebrile. - Goal temp<101 GI- -Nutrition: Encourage PO, ordered carb consistent diet. - Nausea: continue PRN zofran -GI prophylaxis not indicated Renal- -strict I/O, replete to keep K>4, Mg>2 -gibbs as indicated Heme- - No active issues Endo- - DKA: acute. - Anion gap closed. Start lantus 40 units and discontinue drip 2 hrs after that. Will continue to check [id number] for another 2hrs and then ACHS - Start on rapid acting sliding scale for lunch. - Started on PO carb consistent diet - Maintain BG per DKA protocol Musculsk- pressure ulcer prophylaxis. OOB Wounds- none Nutrition- encourage PO, carb consistent diet DVT prophylaxis: subq heparin GI prophylaxis:not indicated Gibbs Catheter: continue for now Disposition: Patient requires Critical Care/ICU for DKA, insulin drip, AMS Patient clinical status: stable Code Status: FULL Total Critical Care time is 30 minutes <Ramonita Hoang - Last Filed: 05/15/19 16:15> Progress Note - Progress Note Note: Attending physician attestation: Pt was seen and examined at bedside. Plan of care discussed with bedside RN and Palmira Jason [employer]. pt is 49 y o f with DKA. Pt on Insulin pump placed recently, was not found to be in place by nursing on admission. Pt was started on DKA protocol. AG closed today and was transitioned to long acting Insulin. Fluids adjusted to bl sugars , elctrolytes are repleted. Mental status improved today. Pt was started on diet. She will need monitoring in ICU for atleast 24 hrs. Agree with above assessment and plan.
[2019-05-15] MEDS ORDERED: Insulin LISPRO* 1 UNITS UNIT SUBCUT SCH ×2 (11:30→15:14)
[2019-05-15] MEDS ORDERED: Metoclopramide IV* 5 MG/ML 2 ML VIAL IV SLOW PU PRN (12:20)
[2019-05-15] MEDS ORDERED: Ondansetron INJ* 2 MG/ML VIAL IV PRN (12:21)
[2019-05-15] MEDS ORDERED: Ibuprofen TAB* 600 MG PO ONE (13:18)
[2019-05-15] MEDS ORDERED: Ibuprofen TAB* 600 MG ONE (13:21)
[2019-05-15 14:55] LABS: BUN/Creatinine Ratio 28.8 (8-20); Calcium 8.4 mg/dL (8.6-10.3); EGFR African American 91.5 (>60); EGFR Non-African American 75.6 (>60); Potassium 3.7 mmol/L (3.5-5.0)
[2019-05-15] MEDS ORDERED: D5W 1/2 NS 1000 ML BAG* 1,000 ML IV SCH ×3 (15:14→18:00)
[2019-05-15] MEDS ORDERED: Insulin REGULAR(*) 1 UNITS UNIT SUBCUT ONE ×2 (15:14→16:24)
[2019-05-15] MEDS ORDERED: NS 0.9% 1000 ML** 1,000 ML IV SCH (17:45)
[2019-05-15 17:58] LABS: BUN/Creatinine Ratio 25.3 (8-20); Calcium 7.8 mg/dL (8.6-10.3); EGFR African American 83.1 (>60); EGFR Non-African American 68.6 (>60); Potassium 3.4 mmol/L (3.5-5.0)
[2019-05-15] MEDS ORDERED: Insulin Infusion 100unit/100mL 100 UNIT/100 ML BAG IV SCH (18:00)
[2019-05-15] MEDS: Insulin REGULAR(*) 1 UNITS UNIT SUBCUT SCH ×2 (18:06→20:10)
[2019-05-15] MEDS: buPROPion SR TAB.SR* 200 MG PO SCH (20:10)
[2019-05-15 22:21] LABS: Calcium 8.5 mg/dL (8.6-10.3); Potassium 3.7 mmol/L (3.5-5.0)
[2019-05-15 22:27] LABS: BUN/Creatinine Ratio 26.8 (8-20); EGFR African American 88.9 (>60); EGFR Non-African American 73.5 (>60)
[2019-05-16 03:40] LABS: BUN/Creatinine Ratio 27.5 (8-20); Calcium 8.4 mg/dL (8.6-10.3); EGFR African American 108.5 (>60); EGFR Non-African American 89.7 (>60); Potassium 3.5 mmol/L (3.5-5.0)
[2019-05-16] MEDS ORDERED: ALPRAZolam TAB* 0.5 MG PO ONE (04:40)
[2019-05-16 04:44] LABS: ABS Basophils 0.1 10^3/ul (0-0.2); ABS Eosinophils 0.1 10^3/ul (0-0.6); ABS Lymphocytes 3.1 10^3/ul (1.0-4.8); ABS Monocytes 0.8 10^3/ul (0-0.8); ABS Neutrophils 10.7 10^3/ul (1.5-7.7); Eosinophil % 0.5 %; Hematocrit 33 % (35-47); Hemoglobin 11.6 g/dL (12.0-16.0); Mean Corpuscular HGB Conc 35 g/dL (31-36); Mean Corpuscular Hemoglobin 32 pg (27-31); Mean Corpuscular Volume 90 fL (80-97); Mean Platelet Volume 8.9 fL (7.4-10.4); Platelet Count 203 10^3/uL (150-450); Red Blood Count 3.67 10^6 /uL (3.70-4.87); Red Cell Distribution Width 14 % (10-15); White Blood Count 14.8 10^3/uL (3.5-10.8)
[2019-05-16] MEDS: Levothyroxine INJ* 100 MCG/5 ML VIAL IV SCH (05:27)
[2019-05-16] MEDS: Heparin VIAL(*) 5000 UNITS/ML VIAL (FIVE THOUSAND) SUBCUT SCH (05:27)
[2019-05-16] MEDS: Insulin REGULAR(*) 1 UNITS UNIT SUBCUT SCH ×2 (08:39→11:55)
[2019-05-16] MEDS: buPROPion SR TAB.SR* 200 MG PO SCH (08:42)
[2019-05-16] MEDS ORDERED: Insulin GLARGINE(*) 1 UNITS UNIT SUBCUT SCH (09:00)
--- NOTE | 2019-05-16 10:49 | DS ---
<Fanny Jason - Last Filed: 05/16/19 10:06> DISCHARGE SUMMARY ADMISSION DATE: 05/14/2019 DISCHARGE DATE: 05/16/2019 DISPOSITION/CONDITION: Discharge home in stable condition PRIMARY DIAGNOSIS: DKA HOSPITAL COURSE: 49F with known medical history of diabetes type 1, diabetic gastroparesis, and thyroid cancer, presents to ED on 05/14/19 with AMS and 24hrs of nausea, vomiting, decreased PO intake. She was encephalopathic with a BG of 1042. She was diagnosed with DKA, bolused with 3L fluid and started on insulin drip. Anion gap closed 05/14, patient's mental status progressively improved throughout the day, was started on lantus and rapid acting insulin ACHS. BGs are under better control. Patient states that she used to use rapid acting and long acting pens at home, before switching to a pump right before this visit. She would like to go back to that right now, and follow up with Dr Lock on . She was taking levemir 40 units q12hr and would like to change back to that. She can start that in the morning of 05/17/19. She reports feeling much better this AM, tolerating PO, and is ready to go home. DISCHARGE MEDICATIONS: 1. Xanax 0.5mg TID PRN 2. Bupropion 200mg BID 3. Semaglutide 0.5mg subq weekly 4. Zofran 4mg q6hr PRN 5. Reglan 10mg TID PRN 6. Levothyroxine 400mcg friday, 200mcg the rest of the week 7. Diflucan 150mg weekly 8. Ezetimibe 10mg daily 9. Insulin lispro [Humalog kwikpen U-200 200units/ml x 2 pens] 12 units subq TID 10. Insulin Detemir [Levemir Flextouch 100 units/ml 3ml x 5 pens] 40 units subq q12hr <Ramonita Hoang - Last Filed: 05/16/19 14:30> Attending physician attestation: Pt was seen and managed in conjunction with Maryjane Jason DESPATCHING AND RECEIVING CLERK. Agree with above. 49 y o f with h/o DM-1, gastroparesis a/w AMS, found to be in DKA. Pt improved subsequenlty, mental status returned to baseline. Pt was found to have Insulin pump off of her extremity. Pt has long acting insulin at home and was d/emely with short acting to be taken prior to meals. Pt also was advised to f/u with Dr Jeff tesfaye.
[2019-05-16 11:08] VITALS: BP 117/73
--- NOTE | 2019-05-16 12:00 | PN ---
<AndrzejNickolas prol - Last Filed: 05/16/19 12:00> Work Excuse - Work Note Work Note: The above employee has been evaluated on 05/14/19. The physician has instructed the employee concerning further work as described below. Work Status: Patient may return to work on 05/24/2019 [] Fannyjanelle Jason, [employer] FINISHER <Ramonita Hoang - Last Filed: 05/16/19 14:32> Work Excuse - Work Note Work Note: The above employee has been evaluated on 05/16/19. The physician has instructed the employee concerning further work as described below. Work Status: [Patient may return to work on 05/24/19] Ramonita Shaffer Ramonita Hoang MD 05/15/201331
== END 2019-05-16 12:50 | disposition home or self-care (01) | DRG 420 ==
LOC: ED 17:08 → ICU 18:45
PROVIDERS: ADMIT Nurse Practitioner Adult Health; ATTEND Internal Medicine
DX: E10.10 Type 1 diabetes mellitus with ketoacidosis without coma (principal); G93.49 Other encephalopathy; E10.43 Type 1 diabetes mellitus with diabetic autonomic (poly)neuropathy; K31.84 Gastroparesis; F41.9 Anxiety disorder, unspecified; F32.9 Major depressive disorder, single episode, unspecified; E86.0 Dehydration; E89.0 Postprocedural hypothyroidism; D72.829 Elevated white blood cell count, unspecified; R00.0 Tachycardia, unspecified; Z87.891 Personal history of nicotine dependence; Z88.0 Allergy status to penicillin; Z88.8 Allergy status to other drugs, medicaments and biological substances; Z85.850 Personal history of malignant neoplasm of thyroid; Z92.3 Personal history of irradiation; Z86.73 Personal history of transient ischemic attack (TIA), and cerebral infarction without residual deficits; Z79.4 Long term (current) use of insulin; Z79.890 Hormone replacement therapy; Z79.899 Other long term (current) drug therapy
CPT/HCPCS: 36415; 71045; 80048; 80053; 81003; 81015; 82803; 82947; 83605; 83735; 84100; 85025; 86140; 87040; 87086; 87641; 93005; 99285; A9270-GY; J1644; J2405; J2765

== ENCOUNTER 2020-04-20 14:59 | Inpatient (IN) ==
[2020-04-20] MEDS ORDERED: NS 0.9% 1000 ml BAG 2,000 ML IV ONE (15:17)
[2020-04-20] MEDS ORDERED: Ondansetron 4 mg VIAL 2 MG/ML 2 ml VIAL IV ONE (15:20)
[2020-04-20 15:40] LABS: ABS Basophils 0.1 10^3/ul (0-0.2); ABS Monocytes 0.7 10^3/ul (0-0.8); ABS Neutrophils 12.5 10^3/ul (1.5-7.7); Hematocrit 51 % (35-47); Lymphocyte % 12.7 %; Mean Corpuscular HGB Conc 33 g/dL (31-36); Mean Corpuscular Hemoglobin 30 pg (27-31); Mean Corpuscular Volume 89 fL (80-97); Mean Platelet Volume 8.4 fL (7.4-10.4); Platelet Count 402 10^3/uL (150-450); Red Blood Count 5.75 10^6 /uL (3.70-4.87); Red Cell Distribution Width 14 % (10-15); White Blood Count 15.3 10^3/uL (3.5-10.8)
[2020-04-20 16:07] LABS: ALT 16 U/L (7-52); AST 14 U/L (13-39); Albumin/Globulin Ratio 1.6 (1-3); Alkaline Phosphatase 159 U/L (34-104); Anion Gap 21 mmol/L (2-11); BUN/Creatinine Ratio 29.5 (8-20); Blood Urea Nitrogen 41 mg/dL (6-24); C Reactive Protein 2.56 mg/L (<8.01); CO2 Carbon Dioxide 17 mmol/L (22-32); Calcium 10.4 mg/dL (8.6-10.3); Chloride 91 mmol/L (101-111); Creatine Kinase 34 U/L (10-223); EGFR African American 48.2 (>60); EGFR Non-African American 39.8 (>60); Globulin 3.2 g/dL (2-4); Glucose 387 mg/dL (70-100); Lipase < 10 U/L (11.0-82.0); Magnesium 2.3 mg/dL (1.9-2.7); Potassium 4.2 mmol/L (3.5-5.0); Sodium 129 mmol/L (135-145); Total Protein 8.2 g/dL (6.4-8.9)
[2020-04-20] MEDS ORDERED: NS 0.9% 1000 ml BAG 1,000 ML IV ONE (16:55)
[2020-04-20] MEDS ORDERED: Potassium Chlor 10 meq TAB PO ONE (17:54)
[2020-04-20] MEDS ORDERED: Potassium Chlor 20 meq TAB.ER PO ONE ×2 (18:00→22:37)
[2020-04-20] MEDS ORDERED: Insulin Infusion 100unit/100mL 100 UNIT/100 ML BAG IV ONE (18:00)
[2020-04-20 18:08] LABS: Urine Appearance Cloudy; Urine Bilirubin Negative (Negative); Urine Blood Negative (Negative); Urine Color Yellow; Urine Glucose 3+(>=500 mg/dL) (Negative); Urine Ketones 2+ (Negative); Urine Nitrite Negative (Negative); Urine Protein 1+(30 mg/dL) (Negative); Urine Specific Gravity 1.025 (1.010-1.030); Urine Urobilinogen Negative (Negative)
[2020-04-20 18:22] LABS: Urine Bacteria Absent (Absent); Urine Red Blood Cell Absent (Absent); Urine Squamous Epithelial Cell Present (Absent); Urine White Blood Cell Trace(0-5/hpf) (Absent)
[2020-04-20] MEDS ORDERED: Lactated Ringers 1000 ml BAG 1,000 ML IV SCH (19:00)
[2020-04-20] MEDS ORDERED: D5W 1/2 NS 1000 ml BAG 1,000 ML IV SCH ×3 (19:00→23:16)
[2020-04-20 19:10] LABS: ABS Monocytes 0.6 10^3/ul (0-0.8); Hematocrit 44 % (35-47); Hemoglobin 14.6 g/dL (12.0-16.0); Lymphocyte % 14.6 %; Mean Corpuscular HGB Conc 34 g/dL (31-36); Mean Corpuscular Hemoglobin 30 pg (27-31); Mean Corpuscular Volume 89 fL (80-97); Mean Platelet Volume 8.4 fL (7.4-10.4); Platelet Count 305 10^3/uL (150-450); Red Blood Count 4.87 10^6 /uL (3.70-4.87); Red Cell Distribution Width 13 % (10-15); White Blood Count 13.6 10^3/uL (3.5-10.8)
[2020-04-20 19:13] LABS: INR 1.04 (0.82-1.09)
[2020-04-20] MEDS ORDERED: Ondansetron 4 mg VIAL 2 MG/ML 2 ml VIAL IV PRN (19:18)
[2020-04-20 19:20] LABS: EGFR African American 65.9 (>60); EGFR Non-African American 54.4 (>60)
[2020-04-20] MEDS ORDERED: Heparin 5000 UNITS/ML 1 mL VIAL SUBCUT SCH (21:00)
[2020-04-20] MEDS ORDERED: Insulin Infusion 100unit/100mL 100 UNIT/100 ML BAG IV SCH (21:00)
[2020-04-20 21:53] LABS: BUN/Creatinine Ratio 33.3 (8-20); Calcium 8.5 mg/dL (8.6-10.3); EGFR African American 68.9 (>60); EGFR Non-African American 56.9 (>60); Potassium 3.8 mmol/L (3.5-5.0)
[2020-04-20] MEDS: Insulin GLARGINE 100 un/ml 10 ml VIAL SUBCUT SCH (22:37)
[2020-04-21] MEDS ORDERED: D5W 1/2 NS 1000 ml BAG 1,000 ML IV SCH (01:10)
[2020-04-21 02:09] LABS: BUN/Creatinine Ratio 31.8 (8-20); Calcium 8.2 mg/dL (8.6-10.3); EGFR African American 81.6 (>60); EGFR Non-African American 67.5 (>60); Potassium 3.8 mmol/L (3.5-5.0)
[2020-04-21] MEDS: KCL 10 MEQ/50 ML IVPREMIX 10 MEQ/50 ML BAG IV SCH ×2 (03:01→07:27)
[2020-04-21] MEDS ORDERED: Dextrose 50% Syringe 50 ml 25 GM/50 ML SYRINGE IV PUSH PRN ×2 (03:13→07:01)
[2020-04-21 04:48] LABS: BUN/Creatinine Ratio 29.9 (8-20); Calcium 8.2 mg/dL (8.6-10.3); EGFR African American 82.7 (>60); EGFR Non-African American 68.4 (>60)
[2020-04-21 04:58] LABS: ABS Lymphocytes 2.6 10^3/ul (1.0-4.8); ABS Monocytes 0.9 10^3/ul (0-0.8); ABS Neutrophils 7.7 10^3/ul (1.5-7.7); Hematocrit 38 % (35-47); Hemoglobin 12.8 g/dL (12.0-16.0); Lymphocyte % 23.5 %; Mean Corpuscular HGB Conc 33 g/dL (31-36); Mean Corpuscular Hemoglobin 30 pg (27-31); Mean Corpuscular Volume 89 fL (80-97); Mean Platelet Volume 8.4 fL (7.4-10.4); Platelet Count 258 10^3/uL (150-450); Red Cell Distribution Width 13 % (10-15); White Blood Count 11.3 10^3/uL (3.5-10.8)
[2020-04-21 06:59] LABS: TSH Ultra Thyroid Stim Horm 0.19 mcIU/mL (0.34-5.60)
[2020-04-21] MEDS ORDERED: Lactated Ringers 1000 ml BAG 1,000 ML IV ONE (07:04)
[2020-04-21] MEDS ORDERED: Potassium Chlor 20 meq TAB.ER PO ONE (07:45)
[2020-04-21] MEDS: Insulin GLARGINE 100 un/ml 10 ml VIAL SUBCUT SCH ×2 (07:53→22:49)
[2020-04-21] MEDS: Aspirin EC 81 mg TAB.EC (enteric coated) PO SCH (08:15)
[2020-04-21] MEDS: Lactated Ringers 1000 ml BAG 1,000 ML IV ONE ×2 (11:40→13:19)
[2020-04-21] MEDS: Heparin 5000 UNITS/ML 1 mL VIAL SUBCUT SCH ×2 (15:19→22:53)
[2020-04-22] MEDS: Heparin 5000 UNITS/ML 1 mL VIAL SUBCUT SCH (06:43)
[2020-04-22] MEDS: Insulin GLARGINE 100 un/ml 10 ml VIAL SUBCUT SCH (08:22)
[2020-04-22] MEDS: Aspirin EC 81 mg TAB.EC (enteric coated) PO SCH (08:22)
[2020-04-22 12:35] VITALS: BP 106/57
== END 2020-04-22 13:45 | disposition home or self-care (01) | DRG 420 ==
LOC: ED 14:59 → ICU 17:45 → MED 04-21 12:35
PROVIDERS: ADMIT Internal Medicine; ATTEND Internal Medicine

== ENCOUNTER 2020-09-18 02:09 | Inpatient (IN) ==
[2020-09-18] MEDS ORDERED: NS 0.9% 1000 ml BAG 2,000 ML IV ONE (02:21)
[2020-09-18] MEDS ORDERED: Lorazepam PYXIS KEY PRN (02:53)
[2020-09-18] MEDS ORDERED: LORazepam 2 mg VIAL 1 ml IV PUSH ONE (02:53)
[2020-09-18] MEDS ORDERED: Ondansetron 4 mg VIAL 2 MG/ML 2 ml VIAL IV ONE (02:53)
[2020-09-18 03:08] LABS: ABS Lymphocytes 1.5 10^3/ul (1.0-4.8); ABS Monocytes 0.7 10^3/ul (0-0.8); ABS Neutrophils 8.2 10^3/ul (1.5-7.7); Hematocrit 47 % (35-47); Hemoglobin 15.2 g/dL (12.0-16.0); Lymphocyte % 14.4 %; Mean Corpuscular HGB Conc 32 g/dL (31-36); Mean Corpuscular Hemoglobin 31 pg (27-31); Mean Corpuscular Volume 96 fL (80-97); Mean Platelet Volume 8.5 fL (7.4-10.4); Platelet Count 246 10^3/uL (150-450); Red Blood Count 4.95 10^6 /uL (3.70-4.87); Red Cell Distribution Width 17 % (10-15); White Blood Count 10.4 10^3/uL (3.5-10.8)
[2020-09-18 03:10] LABS: Urine Appearance Clear; Urine Bilirubin Negative (Negative); Urine Blood 1+ (Negative); Urine Color Straw; Urine Glucose 3+(>=500 mg/dL) (Negative); Urine Ketones 2+ (Negative); Urine Nitrite Negative (Negative); Urine Protein Negative (Negative); Urine Specific Gravity 1.024 (1.002-1.030); Urine Urobilinogen Negative (Negative)
[2020-09-18 03:19] LABS: Urine Bacteria Absent (Absent); Urine Red Blood Cell Trace(0-2/hpf) (Absent); Urine Squamous Epithelial Cell Present (Absent); Urine White Blood Cell Trace(0-5/hpf) (Absent)
[2020-09-18 03:25] LABS: ALT 23 U/L (7-52); AST 25 U/L (13-39); Albumin 3.9 g/dL (3.2-5.2); Albumin/Globulin Ratio 1.4 (1-3); Alcohol, S < 10 mg/dL (<10); Alkaline Phosphatase 172 U/L (35-149); Blood Urea Nitrogen 17 mg/dL (6-24); C Reactive Protein < 1.00 mg/L (<8.01); Calcium 9.5 mg/dL (8.6-10.3); Chloride 99 mmol/L (101-111); Creatine Kinase 66 U/L (10-223); EGFR African American 64.5 (>60); EGFR Non-African American 53.3 (>60); Globulin 2.7 g/dL (2-4); Glucose 463 mg/dL (70-100); Magnesium 1.9 mg/dL (1.9-2.7); Sodium 138 mmol/L (135-145); Total Protein 6.6 g/dL (6.4-8.9)
[2020-09-18 03:28] LABS: Urine Benzodiazepine Screen None Detected (None Detect); Urine Cannabinoids Screen None Detected (None Detect); Urine Opiates Screen None Detected (None Detect)
[2020-09-18 03:30] LABS: Anion Gap 30 mmol/L (2-11); CO2 Carbon Dioxide 9 mmol/L (22-32)
[2020-09-18] MEDS ORDERED: Insulin Infusion 100unit/100mL 100 UNIT/100 ML BAG IV ONE (03:47)
[2020-09-18] MEDS ORDERED: Metoclopramide 5 MG/ML VIAL (10 mg) IV SLOW PU ONE (03:51)
[2020-09-18] MEDS ORDERED: Insulin Drip - @ 0.1 unit/kg/hr IV ONE (04:16)
[2020-09-18 06:24] LABS: TSH Ultra Thyroid Stim Horm 0.07 mcIU/mL (0.34-5.60)
[2020-09-18 07:38] LABS: Blood Urea Nitrogen 15 mg/dL (6-24); CO2 Carbon Dioxide 15 mmol/L (22-32); Calcium 8.1 mg/dL (8.6-10.3); Chloride 111 mmol/L (101-111); EGFR African American 75.7 (>60); EGFR Non-African American 62.5 (>60); Glucose 160 mg/dL (70-100); Sodium 144 mmol/L (135-145)
[2020-09-18 07:47] LABS: Anion Gap 18 mmol/L (2-11)
[2020-09-18] MEDS ORDERED: Insulin Infusion 100unit/100mL 100 UNIT/100 ML BAG IV SCH (08:00)
[2020-09-18] MEDS ORDERED: Dextrose 50% Syringe 50 ml 25 GM/50 ML SYRINGE IV PUSH ONE ×2 (08:00→09:00)
[2020-09-18] MEDS ORDERED: D10W 1000 ml BAG 1,000 ML IV SCH ×3 (08:00→12:40)
[2020-09-18] MEDS ORDERED: Dextrose 50% Syringe 50 ml 25 GM/50 ML SYRINGE IV PUSH PRN ×3 (08:01→16:18)
[2020-09-18] MEDS: Aspirin EC 81 mg TAB.EC (enteric coated) PO SCH (08:12)
[2020-09-18] MEDS: Heparin 5000 UNITS/ML 1 mL VIAL SUBCUT SCH ×2 (08:12→13:43)
[2020-09-18] MEDS: KCL 20 MEQ/100 ML IVPREMIX 20 MEQ/100 ML BAG IV SCH ×4 (08:12→18:06)
[2020-09-18] MEDS: Dextrose 50% Syringe 50 ml 25 GM/50 ML SYRINGE ONE ×2 (08:13→09:00)
[2020-09-18] MEDS: Ondansetron 4 mg VIAL 2 MG/ML 2 ml VIAL IV PRN ×2 (09:52→15:58)
[2020-09-18 10:57] LABS: Venous Bicarbonate HCO3 21.8 mmol/L (24-28)
[2020-09-18] MEDS: buPROPion SR 200 mg TAB.SR PO SCH ×2 (11:03→18:06)
[2020-09-18 11:33] LABS: Calcium 8.3 mg/dL (8.6-10.3); EGFR African American 89.8 (>60); EGFR Non-African American 74.3 (>60); Magnesium 1.6 mg/dL (1.9-2.7); Phosphorus 1.5 mg/dL (2.5-5.0); Potassium 3.9 mmol/L (3.5-5.0)
[2020-09-18] MEDS ORDERED: Potassium Phosphate IV 30 MMOLE in NS 0.9% 250 ml 250 ML IVPB ONE (11:39)
[2020-09-18] MEDS ORDERED: Magnesium Sulf 4 GM/100 ML IV 4,000 MG/100 ML BAG IVPB ONE (11:39)
[2020-09-18] MEDS: Dextrose 50% Syringe 50 ml 25 GM/50 ML SYRINGE IV PUSH ONE ×2 (13:43→13:46)
[2020-09-18] MEDS ORDERED: Enoxaparin 30 MG/0.3 ML SYR SUBCUT SCH ×2 (14:00→19:30)
[2020-09-18] MEDS ORDERED: KCL 20 MEQ/100 ML IVPREMIX 20 MEQ/100 ML BAG IV SCH (15:00)
[2020-09-18 15:36] LABS: Calcium 8.3 mg/dL (8.6-10.3); EGFR African American 88.6 (>60); EGFR Non-African American 73.2 (>60); Potassium 3.8 mmol/L (3.5-5.0)
[2020-09-18] MEDS ORDERED: Insulin GLARGINE 100 un/ml 10 ml VIAL SUBCUT ONE (16:17)
[2020-09-18] MEDS ORDERED: oxyCODONE/Acetamin 5/325 mg TAB PO ONE (18:14)
[2020-09-18] MEDS ORDERED: Calcium Carb (TUMS) 500 mg CHEW TAB PO PRN (18:46)
[2020-09-18] MEDS ORDERED: Metoclopramide 5 MG/ML VIAL (10 mg) IV ONE (19:33)
[2020-09-18] MEDS ORDERED: Morphine 2 MG/ML SYRINGE IV ONE (20:35)
[2020-09-18 20:58] LABS: Blood Urea Nitrogen 13 mg/dL (6-24); CO2 Carbon Dioxide 19 mmol/L (22-32); Chloride 104 mmol/L (101-111); EGFR African American 101.3 (>60); EGFR Non-African American 83.7 (>60); Glucose 306 mg/dL (70-100); Sodium 134 mmol/L (135-145)
[2020-09-18 21:03] LABS: Anion Gap 11 mmol/L (2-11)
[2020-09-18] MEDS ORDERED: NORMOSOL-R pH 7.4 1000 mL BAG 1,000 ML IV SCH (22:00)
[2020-09-18 22:12] LABS: Potassium Redraw 4.2 mmol/L (3.5-5.0)
[2020-09-18 22:39] LABS: Magnesium 2.4 mg/dL (1.9-2.7); Phosphorus 2.6 mg/dL (2.5-5.0)
[2020-09-19 07:11] LABS: ABS Lymphocytes 2.2 10^3/ul (1.0-4.8); ABS Monocytes 0.6 10^3/ul (0-0.8); ABS Neutrophils 6.7 10^3/ul (1.5-7.7); Eosinophil % 0.2 %; Hematocrit 36 % (35-47); Hemoglobin 12.2 g/dL (12.0-16.0); Lymphocyte % 23.1 %; Mean Corpuscular HGB Conc 34 g/dL (31-36); Mean Corpuscular Hemoglobin 31 pg (27-31); Mean Corpuscular Volume 91 fL (80-97); Mean Platelet Volume 7.8 fL (7.4-10.4); Nucleated Red Blood Cells % 0.1; Platelet Count 163 10^3/uL (150-450); Red Blood Count 3.94 10^6 /uL (3.70-4.87); Red Cell Distribution Width 17 % (10-15); White Blood Count 9.6 10^3/uL (3.5-10.8)
[2020-09-19 07:22] LABS: Calcium 7.8 mg/dL (8.6-10.3); EGFR African American 120.1 (>60); EGFR Non-African American 99.2 (>60); Magnesium 2.1 mg/dL (1.9-2.7); Phosphorus 2.3 mg/dL (2.5-5.0)
[2020-09-19] MEDS: buPROPion SR 200 mg TAB.SR PO SCH ×2 (07:37→17:12)
[2020-09-19] MEDS: Aspirin EC 81 mg TAB.EC (enteric coated) PO SCH (07:37)
[2020-09-19] MEDS ORDERED: Potassium Phosphate IV 15 MMOLE in NS 0.9% 250 ml 250 ML IVPB ONE (07:58)
[2020-09-19] MEDS: Insulin GLARGINE 100 un/ml 10 ml VIAL SUBCUT SCH ×2 (08:23→09:15)
[2020-09-19] MEDS ORDERED: Enoxaparin 30 MG/0.3 ML SYR SUBCUT SCH (09:00)
[2020-09-19] MEDS ORDERED: Insulin GLARGINE 100 un/ml 10 ml VIAL SUBCUT SCH ×3 (21:00)
[2020-09-20 07:01] LABS: Calcium 8.6 mg/dL (8.6-10.3); EGFR African American 109.9 (>60); EGFR Non-African American 90.9 (>60); Phosphorus 3.5 mg/dL (2.5-5.0); Potassium 3.6 mmol/L (3.5-5.0)
[2020-09-20] MEDS: Insulin GLARGINE 100 un/ml 10 ml VIAL SUBCUT SCH (08:14)
[2020-09-20] MEDS: buPROPion SR 200 mg TAB.SR PO SCH (08:14)
[2020-09-20] MEDS: Aspirin EC 81 mg TAB.EC (enteric coated) PO SCH (08:14)
[2020-09-20] MEDS ORDERED: Enoxaparin 40 MG/0.4 ML SYR SUBCUT SCH (09:00)
[2020-09-20 09:56] VITALS: BP 106/62
== END 2020-09-20 10:30 | disposition home or self-care (01) | DRG 420 ==
LOC: ED 02:09 → ICU 06:53 → MED 09-19 15:23
PROVIDERS: ADMIT Internal Medicine; ATTEND Hospitalist

== ENCOUNTER 2021-05-14 22:12 | Inpatient (IN) ==
[2021-05-14] MEDS ORDERED: NS 0.9% 1000 ml BAG 1,000 ML IV ONE (22:53)
[2021-05-14] MEDS ORDERED: Ondansetron 4 mg VIAL 2 MG/ML 2 ml VIAL IV ONE (22:53)
[2021-05-14 23:31] LABS: ABS Lymphocytes 1.9 10^3/ul (1.0-4.8); ABS Monocytes 0.5 10^3/ul (0-0.8); Hematocrit 47 % (35-47); Hemoglobin 15.7 g/dL (12.0-16.0); Mean Corpuscular HGB Conc 34 g/dL (31-36); Mean Corpuscular Hemoglobin 32 pg (27-31); Mean Corpuscular Volume 96 fL (80-97); Mean Platelet Volume 7.8 fL (7.4-10.4); Platelet Count 346 10^3/uL (150-450); Red Cell Distribution Width 13 % (10-15); Venous Bicarbonate HCO3 30.7 mmol/L (24-28); White Blood Count 10.5 10^3/uL (3.5-10.8)
[2021-05-14 23:48] LABS: ALT 48 U/L (7-52); AST 46 U/L (13-39); Albumin 4.2 g/dL (3.2-5.2); Albumin/Globulin Ratio 1.8 (1-3); Alkaline Phosphatase 165 U/L (35-149); Anion Gap 19 mmol/L (2-11); Blood Urea Nitrogen 18 mg/dL (6-24); C Reactive Protein < 1.00 mg/L (<8.01); CO2 Carbon Dioxide 29 mmol/L (22-32); Calcium 10.9 mg/dL (8.6-10.3); Chloride 93 mmol/L (101-111); Globulin 2.4 g/dL (2-4); Glucose 130 mg/dL (70-100); Lipase 555 U/L (11.0-82.0); Potassium 3.4 mmol/L (3.5-5.0); Sodium 141 mmol/L (135-145); Total Protein 6.6 g/dL (6.4-8.9)
[2021-05-15] MEDS ORDERED: Iodixanol (CONTRAST) 320 MG/ML 100 ML SDV IV ONE (00:48)
[2021-05-15 02:06] LABS: Amylase 162 U/L (29-103)
[2021-05-15] MEDS ORDERED: NS 0.9% 1000 ml BAG 1,000 ML IV ONE ×2 (02:06)
[2021-05-15 03:15] LABS: Calcium 9.2 mg/dL (8.6-10.3); Potassium 3.5 mmol/L (3.5-5.0); eGFR CKD-EPI 103.7 (>60)
[2021-05-15] MEDS: Ondansetron 4 mg VIAL 2 MG/ML 2 ml VIAL IV PRN ×3 (05:48→20:58)
[2021-05-15] MEDS: NORMOSOL-R pH 7.4 1000 mL BAG 1,000 ML IV SCH ×2 (06:18→16:42)
[2021-05-15] MEDS ORDERED: fentaNYL 100 mcg/2 ml 50 MCG/ML VIAL IV SLOW PU PRN ×2 (06:31→14:59)
[2021-05-15 07:27] LABS: Hepatitis B Surface Antigen Nonreactive (Nonreactive)
[2021-05-15 07:32] LABS: Hepatitis A Ab IgM Negative (Negative)
[2021-05-15 07:33] LABS: Hepatitis B Core IgM Nonreactive (Nonreactive)
[2021-05-15 07:45] LABS: Hepatitis C Antibody Negative (Negative)
[2021-05-15] MEDS: Enoxaparin 40 MG/0.4 ML SYR SUBCUT SCH (10:23)
[2021-05-15 10:54] LABS: Urine Appearance Clear; Urine Bacteria Absent (Absent); Urine Bilirubin Negative (Negative); Urine Blood Negative (Negative); Urine Color Yellow; Urine Glucose 3+(>=500 mg/dL) (Negative); Urine Ketones 1+ (Negative); Urine Nitrite Negative (Negative); Urine Protein 1+(30 mg/dL) (Negative); Urine Red Blood Cell 2+(6-10/hpf) (Absent); Urine Squamous Epithelial Cell Present (Absent); Urine Urobilinogen Negative (Negative); Urine White Blood Cell Absent (Absent)
[2021-05-15 10:57] LABS: Urine Specific Gravity > 1.060 (1.002-1.030)
[2021-05-15 11:06] LABS: Magnesium 1.5 mg/dL (1.9-2.7)
[2021-05-15] MEDS: Insulin GLARGINE 100 un/ml 10 ml VIAL SUBCUT SCH ×2 (12:10→20:45)
[2021-05-15] MEDS ORDERED: Dextrose 50% Syringe 50 ml 25 GM/50 ML SYRINGE IV PUSH PRN (14:59)
[2021-05-15] MEDS ORDERED: Magnesium Sulfate IV 3 GM in NS 0.9% 100 ml BAG 100 ML IVPB ONE (16:11)
[2021-05-15] MEDS ORDERED: Magnesium Sulfate 2 GM IV (Premix) IVPB ONE (17:00)
[2021-05-15] MEDS ORDERED: Magnesium Sulfate 1 GM IV 1 GM/100 ML BAG IV ONE (18:00)
[2021-05-15] MEDS: buPROPion SR 200 mg TAB.SR PO SCH (20:45)
[2021-05-16] MEDS: Ondansetron 4 mg VIAL 2 MG/ML 2 ml VIAL IV PRN ×2 (00:58→08:12)
[2021-05-16] MEDS ORDERED: Lactated Ringers 1000 ml BAG 1,000 ML IV SCH (01:00)
[2021-05-16] MEDS: NORMOSOL-R pH 7.4 1000 mL BAG 1,000 ML IV SCH ×2 (02:48→10:08)
[2021-05-16 05:25] LABS: ABS Eosinophils 0.1 10^3/ul (0-0.6); ABS Lymphocytes 2.6 10^3/ul (1.0-4.8); ABS Monocytes 0.5 10^3/ul (0-0.8); ABS Neutrophils 3.8 10^3/ul (1.5-7.7); Hematocrit 35 % (35-47); Hemoglobin 11.6 g/dL (12.0-16.0); Lymphocyte % 37.2 %; Mean Corpuscular HGB Conc 33 g/dL (31-36); Mean Corpuscular Hemoglobin 32 pg (27-31); Mean Corpuscular Volume 97 fL (80-97); Mean Platelet Volume 7.7 fL (7.4-10.4); Nucleated Red Blood Cells % 0.2; Platelet Count 192 10^3/uL (150-450); Red Blood Count 3.64 10^6 /uL (3.70-4.87); Red Cell Distribution Width 13 % (10-15)
[2021-05-16 05:43] LABS: Calcium 8.1 mg/dL (8.6-10.3); Magnesium 2.1 mg/dL (1.9-2.7); Potassium 3.5 mmol/L (3.5-5.0); eGFR CKD-EPI 96.7 (>60)
[2021-05-16] MEDS: buPROPion SR 200 mg TAB.SR PO SCH ×2 (08:10→20:11)
[2021-05-16] MEDS: Insulin GLARGINE 100 un/ml 10 ml VIAL SUBCUT SCH ×2 (08:11→20:12)
[2021-05-16] MEDS: Enoxaparin 40 MG/0.4 ML SYR SUBCUT SCH (08:12)
[2021-05-17] MEDS: buPROPion SR 200 mg TAB.SR PO SCH ×2 (08:00→20:36)
[2021-05-17] MEDS: Insulin GLARGINE 100 un/ml 10 ml VIAL SUBCUT SCH ×2 (08:08→20:34)
[2021-05-17] MEDS: Enoxaparin 40 MG/0.4 ML SYR SUBCUT SCH (09:59)
[2021-05-17] MEDS ORDERED: Senna TAB 8.6 mg TAB PO PRN (10:12)
[2021-05-17] MEDS: NORMOSOL-R pH 7.4 1000 mL BAG 1,000 ML IV SCH ×2 (11:14→19:18)
[2021-05-17 11:43] LABS: ABS Lymphocytes 1.4 10^3/ul (1.0-4.8); ABS Monocytes 0.5 10^3/ul (0-0.8); ABS Neutrophils 3.9 10^3/ul (1.5-7.7); Eosinophil % 0.3 %; Hematocrit 35 % (35-47); Hemoglobin 11.8 g/dL (12.0-16.0); Lymphocyte % 23.8 %; Mean Corpuscular HGB Conc 34 g/dL (31-36); Mean Corpuscular Hemoglobin 33 pg (27-31); Mean Corpuscular Volume 96 fL (80-97); Mean Platelet Volume 7.6 fL (7.4-10.4); Platelet Count 186 10^3/uL (150-450); Red Blood Count 3.63 10^6 /uL (3.70-4.87); Red Cell Distribution Width 13 % (10-15); White Blood Count 5.8 10^3/uL (3.5-10.8)
[2021-05-17 12:23] LABS: Albumin 3.2 g/dL (3.2-5.2); Albumin/Globulin Ratio 1.8 (1-3); Calcium 7.9 mg/dL (8.6-10.3); Globulin 1.8 g/dL (2-4); Potassium 3.5 mmol/L (3.5-5.0); Total Bilirubin 0.3 mg/dL (0.2-1.0); eGFR CKD-EPI 106.4 (>60)
[2021-05-18] MEDS ORDERED: HYDROmorphone 1 MG/1 ML SYRINGE IV ONE (03:14)
[2021-05-18 06:05] LABS: ABS Eosinophils 0.1 10^3/ul (0-0.6); ABS Lymphocytes 2.1 10^3/ul (1.0-4.8); ABS Monocytes 0.3 10^3/ul (0-0.8); ABS Neutrophils 1.8 10^3/ul (1.5-7.7); Eosinophil % 2.1 %; Hematocrit 36 % (35-47); Hemoglobin 12.1 g/dL (12.0-16.0); Mean Corpuscular HGB Conc 34 g/dL (31-36); Mean Corpuscular Hemoglobin 33 pg (27-31); Mean Corpuscular Volume 97 fL (80-97); Platelet Count 192 10^3/uL (150-450); Red Blood Count 3.71 10^6 /uL (3.70-4.87); Red Cell Distribution Width 13 % (10-15); White Blood Count 4.3 10^3/uL (3.5-10.8)
[2021-05-18 06:27] LABS: Albumin 3.2 g/dL (3.2-5.2); Albumin/Globulin Ratio 1.7 (1-3); Calcium 8.2 mg/dL (8.6-10.3); Globulin 1.9 g/dL (2-4); Potassium 4.1 mmol/L (3.5-5.0); Total Bilirubin 0.3 mg/dL (0.2-1.0); Total Protein 5.1 g/dL (6.4-8.9); eGFR CKD-EPI 103.7 (>60)
[2021-05-18 06:30] LABS: INR 0.88 (0.86-1.15)
[2021-05-18] MEDS: Insulin GLARGINE 100 un/ml 10 ml VIAL SUBCUT SCH ×2 (07:53→20:56)
[2021-05-18] MEDS: Enoxaparin 40 MG/0.4 ML SYR SUBCUT SCH (07:53)
[2021-05-18] MEDS: buPROPion SR 200 mg TAB.SR PO SCH ×2 (07:54→20:56)
[2021-05-18] MEDS: NORMOSOL-R pH 7.4 1000 mL BAG 1,000 ML IV SCH ×3 (10:02→23:47)
[2021-05-18 10:07] LABS: HDL Cholesterol 81.4 mg/dL
[2021-05-18] MEDS ORDERED: Magnesium Hydroxide LIQ 30 ML UDC PO PRN (11:25)
[2021-05-18] MEDS: Ondansetron 4 mg VIAL 2 MG/ML 2 ml VIAL IV PRN (13:32)
[2021-05-18 13:35] LABS: Adenovirus F40/41 Negative (Negative); Astrovirus Negative (Negative); Cryptosporidium species Negative (Negative); Cyclospora cayetanensis Negative (Negative); Entamoeba histolytica Negative (Negative); Enteroaggregative E.coli(EAEC) Negative (Negative); Enteropathogenic Ecoli(EPEC) Negative (Negative); Enterotoxigenic Ecoli(ETEC) Negative (Negative); Norovirus GI/GII Negative (Negative); Plesiomonas shigelloides Negative (Negative); Salmonella species Negative (Negative); Sapovirus Negative (Negative); Shiga toxin producing E. coli Negative (Negative); Shigella/Enteroinvasive E.coli Negative (Negative); Specimen Source STOOL; Vibrio cholerae Negative (Negative); Yersinia species Negative (Negative)
[2021-05-19] MEDS: NORMOSOL-R pH 7.4 1000 mL BAG 1,000 ML IV SCH (06:18)
[2021-05-19 06:30] LABS: ABS Eosinophils 0.1 10^3/ul (0-0.6); ABS Lymphocytes 1.4 10^3/ul (1.0-4.8); ABS Monocytes 0.4 10^3/ul (0-0.8); ABS Neutrophils 4.2 10^3/ul (1.5-7.7); Eosinophil % 1.4 %; Hematocrit 35 % (35-47); Hemoglobin 11.8 g/dL (12.0-16.0); Lymphocyte % 22.8 %; Mean Corpuscular HGB Conc 34 g/dL (31-36); Mean Corpuscular Hemoglobin 33 pg (27-31); Mean Corpuscular Volume 96 fL (80-97); Mean Platelet Volume 7.9 fL (7.4-10.4); Nucleated Red Blood Cells % 0.1; Platelet Count 195 10^3/uL (150-450); Red Blood Count 3.64 10^6 /uL (3.70-4.87); Red Cell Distribution Width 14 % (10-15); White Blood Count 6.2 10^3/uL (3.5-10.8)
[2021-05-19 07:11] LABS: Albumin/Globulin Ratio 1.6 (1-3); Calcium 8.6 mg/dL (8.6-10.3); Globulin 1.9 g/dL (2-4); Potassium 4.5 mmol/L (3.5-5.0); Total Bilirubin 0.3 mg/dL (0.2-1.0); Total Protein 4.9 g/dL (6.4-8.9); eGFR CKD-EPI 104.4 (>60)
[2021-05-19 07:23] VITALS: BP 121/73
[2021-05-19] MEDS: buPROPion SR 200 mg TAB.SR PO SCH (08:28)
[2021-05-19] MEDS: Enoxaparin 40 MG/0.4 ML SYR SUBCUT SCH (08:35)
[2021-05-19] MEDS: Insulin GLARGINE 100 un/ml 10 ml VIAL SUBCUT SCH (09:38)
[2021-05-21 13:17] LABS: Liver/Kidney Microsomes Ab <5.0 U
[2021-05-23 13:17] LABS: Mitochondria M2 Antibody <0.1 U
[2021-05-23 15:27] LABS: Soluble Liver Antigen IgG <20.1 U
== END 2021-05-19 11:15 | disposition home or self-care (01) | DRG 282 ==
LOC: ED 22:12 → SUATTDRO 05-15 05:06 → EDHOLD 05-15 05:06 → MED 05-15 14:51
PROVIDERS: ADMIT Student in an Organized Health Care Education/Training Program; ATTEND Pediatrics

== ENCOUNTER 2021-06-13 18:38 | Observation (INO) ==
[2021-06-13] MEDS ORDERED: Lactated Ringers 1000 ml BAG 1,000 ML IV ONE ×2 (19:21→20:41)
[2021-06-13] MEDS ORDERED: Ondansetron 4 mg VIAL 2 MG/ML 2 ml VIAL IV ONE (19:21)
[2021-06-13] MEDS ORDERED: Morphine 4 MG/ML VIAL (1 ml) IV ONE ×2 (19:21→23:12)
[2021-06-13 20:18] LABS: ABS Basophils 0.1 10^3/ul (0-0.2); ABS Lymphocytes 2.6 10^3/ul (1.0-4.8); ABS Monocytes 0.6 10^3/ul (0-0.8); ABS Neutrophils 4.9 10^3/ul (1.5-7.7); Eosinophil % 0.3 %; Hematocrit 45 % (35-47); Hemoglobin 15.1 g/dL (12.0-16.0); Lymphocyte % 31.4 %; Mean Corpuscular HGB Conc 34 g/dL (31-36); Mean Corpuscular Hemoglobin 32 pg (27-31); Mean Corpuscular Volume 94 fL (80-97); Mean Platelet Volume 7.6 fL (7.4-10.4); Nucleated Red Blood Cells % 0.1; Platelet Count 329 10^3/uL (150-450); Red Blood Count 4.78 10^6 /uL (3.70-4.87); Red Cell Distribution Width 13 % (10-15); White Blood Count 8.2 10^3/uL (3.5-10.8)
[2021-06-13 20:23] LABS: INR 0.86 (0.86-1.15)
[2021-06-13 21:00] LABS: Albumin/Globulin Ratio 1.8 (1-3); Anion Gap 18 mmol/L (2-11); Blood Urea Nitrogen 20 mg/dL (6-24); CO2 Carbon Dioxide 23 mmol/L (22-32); Calcium 10.9 mg/dL (8.6-10.3); Chloride 96 mmol/L (101-111); Globulin 2.2 g/dL (2-4); Glucose 171 mg/dL (70-100); Magnesium 1.8 mg/dL (1.9-2.7); Potassium 4.5 mmol/L (3.5-5.0); Sodium 137 mmol/L (135-145); Total Protein 6.2 g/dL (6.4-8.9)
[2021-06-13 21:01] LABS: ALT 26 U/L (7-52); AST 24 U/L (13-39); Alkaline Phosphatase 161 U/L (35-149); C Reactive Protein < 1.00 mg/L (<8.01); Indirect Bilirubin 0.4 mg/dL (0.3-1.0); Lipase 166 U/L (11.0-82.0)
[2021-06-13] MEDS ORDERED: Iodixanol (CONTRAST) 320 MG/ML 100 ML SDV IV ONE (21:27)
[2021-06-14] MEDS ORDERED: Dextrose 50% Syringe 50 ml 25 GM/50 ML SYRINGE IV PUSH PRN (00:27)
[2021-06-14] MEDS ORDERED: Morphine 2 MG/ML SYRINGE IV PRN (00:29)
[2021-06-14] MEDS ORDERED: HYDROmorphone 0.5 MG/0.5 ML SYRINGE IV SLOW PU PRN (00:55)
[2021-06-14] MEDS: NS 0.9% 1000 ml BAG 1,000 ML IV SCH ×3 (01:24→13:03)
[2021-06-14] MEDS: Enoxaparin 40 MG/0.4 ML SYR SUBCUT SCH (01:49)
[2021-06-14 02:17] LABS: Amylase 40 U/L (29-103)
[2021-06-14 02:23] LABS: Glucose Confirmatory 414 mg/dL (70-100)
[2021-06-14] MEDS ORDERED: Senna TAB 8.6 mg TAB PO PRN (02:27)
[2021-06-14] MEDS ORDERED: Insulin GLARGINE 100 un/ml 10 ml VIAL SUBCUT ONE (02:34)
[2021-06-14] MEDS: HYDROmorphone 0.5 MG/0.5 ML SYRINGE IV SLOW PU PRN ×3 (03:48→08:00)
[2021-06-14 05:55] LABS: ABS Eosinophils 0.1 10^3/ul (0-0.6); ABS Monocytes 0.5 10^3/ul (0-0.8); ABS Neutrophils 4.1 10^3/ul (1.5-7.7); Eosinophil % 0.8 %; Hematocrit 39 % (35-47); Lymphocyte % 45.4 %; Mean Corpuscular HGB Conc 33 g/dL (31-36); Mean Corpuscular Hemoglobin 32 pg (27-31); Mean Corpuscular Volume 96 fL (80-97); Nucleated Red Blood Cells % 0.1; Platelet Count 286 10^3/uL (150-450); Red Blood Count 4.04 10^6 /uL (3.70-4.87); Red Cell Distribution Width 13 % (10-15); White Blood Count 8.7 10^3/uL (3.5-10.8)
[2021-06-14] MEDS: Ondansetron 4 mg VIAL 2 MG/ML 2 ml VIAL IV PRN ×3 (06:04→21:55)
[2021-06-14 06:12] LABS: Albumin 3.3 g/dL (3.2-5.2); Albumin/Globulin Ratio 1.8 (1-3); Calcium 8.6 mg/dL (8.6-10.3); Globulin 1.8 g/dL (2-4); Potassium 4.2 mmol/L (3.5-5.0); Total Bilirubin 0.5 mg/dL (0.2-1.0); Total Protein 5.1 g/dL (6.4-8.9)
[2021-06-14] MEDS ORDERED: INSULIN DETEMIR U SUBCUT SCH (09:00)
[2021-06-14] MEDS ORDERED: [UNRECOGNIZED DRUG - OTHER] SUBCUT SCH (09:00)
[2021-06-14] MEDS ORDERED: Insulin GLARGINE 100 un/ml 10 ml VIAL SUBCUT SCH ×3 (09:00)
[2021-06-14] MEDS: buPROPion SR 200 mg TAB.SR PO SCH ×2 (09:38→21:28)
[2021-06-14] MEDS: Insulin GLARGINE 100 un/ml 10 ml VIAL SUBCUT SCH ×2 (10:08→20:59)
[2021-06-14] MEDS: Morphine 2 MG/ML SYRINGE IV PRN ×3 (11:08→21:16)
[2021-06-14 13:09] LABS: Calcium 7.8 mg/dL (8.6-10.3); Magnesium 1.6 mg/dL (1.9-2.7); Phosphorus 2.5 mg/dL (2.5-5.0); Potassium 4.1 mmol/L (3.5-5.0); eGFR CKD-EPI 104.8 (>60)
[2021-06-14] MEDS ORDERED: Magnesium Sulfate IV 3 GM in NS 0.9% 100 ml BAG 100 ML IVPB ONE (13:13)
[2021-06-14 13:22] LABS: TSH Ultra Thyroid Stim Horm 6.21 mcIU/mL (0.34-5.60)
[2021-06-14] MEDS ORDERED: Magnesium Sulfate 2 GM IV (Premix) IVPB ONE (13:30)
[2021-06-14] MEDS ORDERED: Magnesium Sulfate 1 GM IV 1 GM/100 ML BAG IV ONE (15:00)
[2021-06-14 15:06] LABS: Free T4 1.03 ng/dL (0.61-1.12)
[2021-06-14] MEDS ORDERED: Midazolam 10 mg/10 ml VIAL 1 mg/ml 10 ml VIAL (10 mg) ONE (15:21)
[2021-06-14] MEDS ORDERED: fentaNYL 100 mcg/2 ml 50 MCG/ML VIAL ONE (15:22)
[2021-06-15] MEDS: Morphine 2 MG/ML SYRINGE IV PRN ×2 (01:14→09:04)
[2021-06-15 05:42] LABS: ABS Eosinophils 0.1 10^3/ul (0-0.6); ABS Monocytes 0.5 10^3/ul (0-0.8); ABS Neutrophils 3.1 10^3/ul (1.5-7.7); Eosinophil % 1.4 %; Hematocrit 35 % (35-47); Lymphocyte % 44.2 %; Mean Corpuscular HGB Conc 34 g/dL (31-36); Mean Corpuscular Hemoglobin 32 pg (27-31); Mean Corpuscular Volume 94 fL (80-97); Mean Platelet Volume 7.4 fL (7.4-10.4); Nucleated Red Blood Cells % 0.1; Platelet Count 246 10^3/uL (150-450); Red Blood Count 3.76 10^6 /uL (3.70-4.87); Red Cell Distribution Width 13 % (10-15); White Blood Count 6.8 10^3/uL (3.5-10.8)
[2021-06-15 06:24] LABS: Calcium 8.1 mg/dL (8.6-10.3); Magnesium 2.4 mg/dL (1.9-2.7); Phosphorus 2.3 mg/dL (2.5-5.0); Potassium 4.1 mmol/L (3.5-5.0); eGFR CKD-EPI 101.6 (>60)
[2021-06-15] MEDS: Ondansetron 4 mg VIAL 2 MG/ML 2 ml VIAL IV PRN (08:53)
[2021-06-15] MEDS: Enoxaparin 40 MG/0.4 ML SYR SUBCUT SCH (08:53)
[2021-06-15] MEDS ORDERED: Insulin GLARGINE 100 un/ml 10 ml VIAL SUBCUT SCH (09:00)
[2021-06-15] MEDS: Insulin GLARGINE 100 un/ml 10 ml VIAL SUBCUT SCH (09:03)
[2021-06-15] MEDS: buPROPion SR 200 mg TAB.SR PO SCH (09:04)
[2021-06-15 12:13] VITALS: BP 141/65
== END 2021-06-15 14:15 | disposition home or self-care (01) ==
LOC: ED 18:38 → INTOOBSV 06-14 00:36 → SUATTDRO 06-14 00:36 → MEDTELE 06-14 00:36
PROVIDERS: ADMIT Internal Medicine; ATTEND Internal Medicine

== ENCOUNTER 2022-03-26 19:16 | Inpatient (IN) ==
[2022-03-26] MEDS ORDERED: NS 0.9% 1000 ml BAG 2,000 ML IV ONE (19:47)
[2022-03-26] MEDS ORDERED: Metoclopramide 5 MG/ML VIAL (10 mg) IV SLOW PU ONE (19:51)
[2022-03-26 20:43] LABS: Venous Bicarbonate HCO3 18.6 mmol/L (24-28)
[2022-03-26 20:46] LABS: Hematocrit 45 % (35-47); Hemoglobin 14.8 g/dL (12.0-16.0); Mean Corpuscular HGB Conc 33 g/dL (31-36); Mean Corpuscular Hemoglobin 31 pg (27-31); Mean Corpuscular Volume 95 fL (80-97); Mean Platelet Volume 8.2 fL (7.4-10.4); Platelet Count 369 10^3/uL (150-450); Red Blood Count 4.72 10^6 /uL (3.70-4.87); Red Cell Distribution Width 13 % (10-15)
[2022-03-26 20:56] LABS: Urine Appearance Clear; Urine Bilirubin Negative (Negative); Urine Blood Negative (Negative); Urine Color Yellow; Urine Glucose 3+(>=500 mg/dL) (Negative); Urine Ketones 2+ (Negative); Urine Nitrite Negative (Negative); Urine Protein Negative (Negative); Urine Specific Gravity 1.023 (1.002-1.030); Urine Urobilinogen Negative (Negative)
[2022-03-26 21:06] LABS: ALT 24 U/L (7-52); AST 26 U/L (13-39); Albumin 4.1 g/dL (3.2-5.2); Albumin/Globulin Ratio 1.5 (1-3); Alkaline Phosphatase 177 U/L (35-149); Anion Gap 29 mmol/L (2-11); Blood Urea Nitrogen 30 mg/dL (6-24); C Reactive Protein < 1.00 mg/L (<8.01); CO2 Carbon Dioxide 18 mmol/L (22-32); Calcium 10.7 mg/dL (8.6-10.3); Chloride 98 mmol/L (101-111); Creatinine, Serum 1.14 mg/dL (0.51-0.95); Globulin 2.7 g/dL (2-4); Glucose 267 mg/dL (70-100); Lipase 233 U/L (11.0-82.0); Magnesium 1.9 mg/dL (1.9-2.7); Potassium 3.6 mmol/L (3.5-5.0); Sodium 145 mmol/L (135-145); Total Protein 6.8 g/dL (6.4-8.9); eGFR CKD-EPI 57.2 (>60)
[2022-03-26 21:09] LABS: High Sens Troponin Baseline 6 pg/mL (<15)
[2022-03-26 21:18] LABS: ABS Basophils 0.1 10^3/ul (0-0.2); ABS Lymphocytes 2.1 10^3/ul (1.0-4.8); ABS Monocytes 0.9 10^3/ul (0-0.8); Lymphocyte % 9.9 %
[2022-03-26] MEDS ORDERED: Dextrose 50% Syringe 50 ml 25 GM/50 ML SYRINGE IV PUSH PRN (21:46)
[2022-03-26] MEDS ORDERED: Insulin Infusion 100unit/100mL 100 UNIT/100 ML BAG IV SCH (22:00)
[2022-03-26 22:10] LABS: Phosphorus 3.5 mg/dL (2.5-5.0)
[2022-03-26] MEDS ORDERED: Iodixanol (CONTRAST) 320 MG/ML 100 ML SDV IV ONE (22:23)
[2022-03-26 22:28] LABS: Free T4 1.45 ng/dL (0.61-1.12)
[2022-03-26] MEDS: Ondansetron 4 mg VIAL 2 MG/ML 2 ml VIAL IV PRN (22:34)
[2022-03-26 23:02] LABS: Cholesterol 245 mg/dL; HDL Cholesterol 72.6 mg/dL; LDL Cholesterol 116 mg/dL; Triglycerides 284 mg/dL
[2022-03-27] MEDS: D5LR 20 MEQ KCL 1000 ml BAG 1,000 ML IV SCH ×3 (01:10→11:33)
[2022-03-27] MEDS: Enoxaparin 40 MG/0.4 ML SYR SUBCUT SCH ×2 (01:29→20:47)
[2022-03-27 01:43] LABS: Calcium 9.6 mg/dL (8.6-10.3); Creatinine, Serum 0.83 mg/dL (0.51-0.95); Magnesium 1.8 mg/dL (1.9-2.7); Phosphorus 3.9 mg/dL (2.5-5.0); Potassium 4.4 mmol/L (3.5-5.0); eGFR CKD-EPI 83.7 (>60)
[2022-03-27] MEDS: Metoclopramide 5 MG/ML VIAL (10 mg) IV SLOW PU PRN ×2 (02:40→20:47)
[2022-03-27] MEDS: fentaNYL 100 mcg/2 ml 50 MCG/ML VIAL IV SLOW PU PRN ×5 (02:44→20:47)
[2022-03-27] MEDS ORDERED: Magnesium Sulfate IV 1GM/100ML 1 GM/100 ML BAG IV ONE (04:20)
[2022-03-27 06:54] LABS: Calcium 9.3 mg/dL (8.6-10.3); Creatinine, Serum 0.82 mg/dL (0.51-0.95); Magnesium 2.2 mg/dL (1.9-2.7); Phosphorus 3.3 mg/dL (2.5-5.0); Potassium 4.3 mmol/L (3.5-5.0); eGFR CKD-EPI 84.9 (>60)
[2022-03-27] MEDS: Ondansetron 4 mg VIAL 2 MG/ML 2 ml VIAL IV PRN ×2 (07:03→13:56)
[2022-03-27] MEDS ORDERED: Nicotine GUM 2MG FRUIT FLAVOR PO PRN (10:07)
[2022-03-27 10:32] LABS: ABS Basophils 0.1 10^3/ul (0-0.2); ABS Lymphocytes 1.9 10^3/ul (1.0-4.8); ABS Neutrophils 16.6 10^3/ul (1.5-7.7); Eosinophil % 0.1 %; Hematocrit 41 % (35-47); Hemoglobin 13.1 g/dL (12.0-16.0); Lymphocyte % 9.9 %; Mean Corpuscular HGB Conc 32 g/dL (31-36); Mean Corpuscular Hemoglobin 31 pg (27-31); Mean Corpuscular Volume 96 fL (80-97); Mean Platelet Volume 8.4 fL (7.4-10.4); Nucleated Red Blood Cells % 0.1; Platelet Count 325 10^3/uL (150-450); Red Blood Count 4.25 10^6 /uL (3.70-4.87); Red Cell Distribution Width 14 % (10-15); White Blood Count 19.7 10^3/uL (3.5-10.8)
[2022-03-27 10:40] LABS: Calcium 9.9 mg/dL (8.6-10.3); Creatinine, Serum 0.86 mg/dL (0.51-0.95); Magnesium 2.2 mg/dL (1.9-2.7); Potassium 4.5 mmol/L (3.5-5.0); eGFR CKD-EPI 80.2 (>60)
[2022-03-27] MEDS ORDERED: Dextrose 50% Syringe 50 ml 25 GM/50 ML SYRINGE IV PUSH PRN (14:28)
[2022-03-27 15:47] LABS: Calcium 8.9 mg/dL (8.6-10.3); Creatinine, Serum 0.66 mg/dL (0.51-0.95); Phosphorus 2.5 mg/dL (2.5-5.0); Potassium 4.1 mmol/L (3.5-5.0); eGFR CKD-EPI 104.2 (>60)
[2022-03-27] MEDS: Calcium Carb (TUMS) 500 mg CHEW TAB PO SCH ×2 (17:19→20:48)
[2022-03-27] MEDS: Insulin GLARGINE 100 un/ml 10 ml VIAL SUBCUT SCH (17:20)
[2022-03-27] MEDS ORDERED: Insulin GLARGINE 100 un/ml 10 ml VIAL SUBCUT SCH ×2 (18:00→21:00)
[2022-03-27] MEDS ORDERED: Magnesium Sulfate 2 gm BAG 2 GM/50 ML BAG IVPB ONE (18:36)
[2022-03-27] MEDS ORDERED: Calcium Carb (TUMS) 500 mg CHEW TAB PO SCH (21:00)
[2022-03-27] MEDS: buPROPion SR 100 mg TAB.SR PO SCH (21:05)
[2022-03-28] MEDS: fentaNYL 100 mcg/2 ml 50 MCG/ML VIAL IV SLOW PU PRN ×3 (02:17→14:46)
[2022-03-28 04:34] LABS: ABS Basophils 0.2 10^3/ul (0-0.2); ABS Eosinophils 0.1 10^3/ul (0-0.6); ABS Lymphocytes 2.9 10^3/ul (1.0-4.8); ABS Monocytes 0.9 10^3/ul (0-0.8); ABS Neutrophils 10.3 10^3/ul (1.5-7.7); Eosinophil % 0.6 %; Hematocrit 35 % (35-47); Hemoglobin 11.6 g/dL (12.0-16.0); Lymphocyte % 20.4 %; Mean Corpuscular HGB Conc 33 g/dL (31-36); Mean Corpuscular Hemoglobin 32 pg (27-31); Mean Corpuscular Volume 95 fL (80-97); Mean Platelet Volume 7.4 fL (7.4-10.4); Platelet Count 226 10^3/uL (150-450); Red Blood Count 3.67 10^6 /uL (3.70-4.87); Red Cell Distribution Width 14 % (10-15); White Blood Count 14.4 10^3/uL (3.5-10.8)
[2022-03-28 05:06] LABS: Calcium 7.8 mg/dL (8.6-10.3); Creatinine, Serum 0.49 mg/dL (0.51-0.95); Magnesium 2.1 mg/dL (1.9-2.7); Phosphorus 2.4 mg/dL (2.5-5.0); Potassium 3.7 mmol/L (3.5-5.0); eGFR CKD-EPI 111.9 (>60)
[2022-03-28] MEDS: Insulin GLARGINE 100 un/ml 10 ml VIAL SUBCUT SCH ×2 (05:34→17:10)
[2022-03-28] MEDS: Calcium Carb (TUMS) 500 mg CHEW TAB PO SCH ×2 (07:54→20:17)
[2022-03-28] MEDS: buPROPion SR 100 mg TAB.SR PO SCH ×2 (08:36→20:18)
[2022-03-28] MEDS: Enoxaparin 40 MG/0.4 ML SYR SUBCUT SCH (20:19)
[2022-03-29] MEDS: Insulin GLARGINE 100 un/ml 10 ml VIAL SUBCUT SCH (06:30)
[2022-03-29 06:54] LABS: Hematocrit 35 % (35-47); Hemoglobin 11.4 g/dL (12.0-16.0); Mean Corpuscular HGB Conc 33 g/dL (31-36); Mean Corpuscular Hemoglobin 32 pg (27-31); Mean Corpuscular Volume 95 fL (80-97); Mean Platelet Volume 8.7 fL (7.4-10.4); Platelet Count 197 10^3/uL (150-450); Red Blood Count 3.63 10^6 /uL (3.70-4.87); Red Cell Distribution Width 13 % (10-15); White Blood Count 7.6 10^3/uL (3.5-10.8)
[2022-03-29 07:00] LABS: Calcium 8.4 mg/dL (8.6-10.3); Creatinine, Serum 0.63 mg/dL (0.51-0.95); Magnesium 1.9 mg/dL (1.9-2.7); Potassium 3.6 mmol/L (3.5-5.0); eGFR CKD-EPI 105.4 (>60)
[2022-03-29 07:49] VITALS: BP 116/75
[2022-03-29] MEDS: Calcium Carb (TUMS) 500 mg CHEW TAB PO SCH (08:19)
[2022-03-29] MEDS: buPROPion SR 100 mg TAB.SR PO SCH (08:19)
== END 2022-03-29 10:40 | disposition home or self-care (01) | DRG 420 ==
LOC: ED 19:16 → SUATTDRO 22:07 → EDHOLD 22:07 → ICU 03-27 00:37 → MED 03-28 17:23
PROVIDERS: ADMIT Surgery Surgical Critical Care; ATTEND Internal Medicine

== ENCOUNTER 2022-10-23 08:38 | Observation (INO) ==
[2022-10-23] MEDS ORDERED: NS 0.9% 1000 ml BAG 1,000 ML IV ONE (09:13)
[2022-10-23] MEDS ORDERED: Ondansetron 4 mg VIAL 2 MG/ML 2 ml VIAL IV ONE (09:14)
[2022-10-23 09:56] LABS: ABS Lymphocytes 1.3 10^3/uL (1.0-4.8); ABS Monocytes 0.6 10^3/uL (0.0-0.9); ABS Neutrophils 3.6 10^3/uL (1.5-7.6); Eosinophil % 0.4 %; Hematocrit 33.9 % (35-45); Hemoglobin 11.5 g/dL (11.5-14.3); Lymphocyte % 23.3 %; Mean Corpuscular Hemoglobin 30.1 pg (27-33); Mean Corpuscular Volume 88.6 fL (80-97); Mean Platelet Volume 8.3 fL (7.5-11.2); Nucleated Red Blood Cells % 0.1 /100 WBC (0.0-0.4); Platelet Count 202 10^3/uL (150-450); Red Blood Count 3.83 10^6/uL (3.63-4.92); Red Cell Distribution Width 12.7 % (12-17); White Blood Count 5.5 10^3/uL (3.8-11.8)
[2022-10-23 09:59] LABS: Urine Appearance Clear; Urine Bilirubin Negative (Negative); Urine Blood Negative (Negative); Urine Color Yellow; Urine Glucose 3+(>=500 mg/dL) (Negative); Urine Ketones 1+ (Negative); Urine Nitrite Negative (Negative); Urine Protein 1+(30 mg/dL) (Negative); Urine Specific Gravity 1.012 (1.002-1.030); Urine Urobilinogen Negative (Negative)
[2022-10-23 10:02] LABS: Urine Bacteria Absent (Absent); Urine Red Blood Cell Trace(0-2/hpf) (Absent); Urine Squamous Epithelial Cell Present (Absent); Urine White Blood Cell 1+(6-10/hpf) (Absent)
[2022-10-23 10:12] LABS: ALT 174 U/L (7-52); AST 172 U/L (13-39); Albumin/Globulin Ratio 1.1 (1-3); Alkaline Phosphatase 231 U/L (35-149); Anion Gap 7 mmol/L (2-16); Blood Urea Nitrogen 16 mg/dL (6-24); C Reactive Protein 87.85 mg/L (<8.01); CO2 Carbon Dioxide 30 mmol/L (22-32); Calcium 8.8 mg/dL (8.6-10.3); Chloride 94 mmol/L (101-111); Creatinine, Serum 0.64 mg/dL (0.51-0.95); Globulin 2.7 g/dL (2-4); Glucose 177 mg/dL (70-100); Magnesium 1.4 mg/dL (1.9-2.7); Phosphorus 2.5 mg/dL (2.5-5.0); Potassium 3.5 mmol/L (3.5-5.0); Sodium 131 mmol/L (135-145); Total Protein 5.7 g/dL (6.4-8.9)
[2022-10-23] MEDS ORDERED: cefTRIAXone 1 gm/50 mL D5W 1 GM/50 ML BAG IV ONE (10:12)
[2022-10-23] MEDS ORDERED: Magnesium Sulfate 2 gm BAG 2 GM/50 ML BAG IVPB ONE (11:32)
[2022-10-23 12:03] LABS: Lipase < 10 U/L (11.0-82.0)
[2022-10-23 13:04] LABS: Hepatitis B Surface Antigen Nonreactive (Nonreactive)
[2022-10-23 13:10] LABS: Hepatitis A Ab IgM Negative (Negative); Hepatitis B Core IgM Nonreactive (Nonreactive)
[2022-10-23 13:21] LABS: Hepatitis C Antibody Negative (Negative)
[2022-10-23] MEDS ORDERED: Dextrose 50% Syringe 50 ml 25 GM/50 ML SYRINGE IV PUSH PRN ×2 (15:04→17:48)
[2022-10-23] MEDS ORDERED: Lactated Ringers 1000 ml BAG 1,000 ML IV SCH (18:00)
[2022-10-23] MEDS: Ondansetron 4 mg VIAL 2 MG/ML 2 ml VIAL IV PRN (20:42)
[2022-10-23] MEDS: Insulin GLARGINE 100 un/ml 10 ml VIAL SUBCUT SCH (21:34)
[2022-10-24 06:19] LABS: Hematocrit 36.6 % (35-45); Hemoglobin 12.2 g/dL (11.5-14.3); Mean Corpuscular Hemoglobin 30.2 pg (27-33); Mean Corpuscular Hgb Conc 33.3 g/dL (31-36); Mean Corpuscular Volume 90.9 fL (80-97); Mean Platelet Volume 8.4 fL (7.5-11.2); Platelet Count 197 10^3/uL (150-450); Red Blood Count 4.02 10^6/uL (3.63-4.92); White Blood Count 5.5 10^3/uL (3.8-11.8)
[2022-10-24 06:27] LABS: Calcium 8.2 mg/dL (8.6-10.3); Magnesium 1.7 mg/dL (1.9-2.7); Potassium 3.5 mmol/L (3.5-5.0); Total Bilirubin 0.2 mg/dL (0.2-1.0)
[2022-10-24 06:33] LABS: Albumin/Globulin Ratio 1.2 (1-3); Creatinine, Serum 0.51 mg/dL (0.51-0.95); Globulin 2.5 g/dL (2-4); Total Protein 5.5 g/dL (6.4-8.9); eGFR CKD-EPI 110.9 (>60)
[2022-10-24] MEDS: Insulin GLARGINE 100 un/ml 10 ml VIAL SUBCUT SCH (09:45)
[2022-10-24] MEDS ORDERED: cefTRIAXone 1 gm/50 mL D5W 1 GM/50 ML BAG IV SCH (10:00)
[2022-10-24] MEDS ORDERED: NS 0.9% 500 ml BAG 500 ML IV SCH ×2 (10:00→11:59)
[2022-10-24] MEDS ORDERED: Iodixanol (CONTRAST) 320 MG/ML 100 ML SDV IV ONE (12:08)
[2022-10-24] MEDS: Ondansetron 4 mg VIAL 2 MG/ML 2 ml VIAL IV PRN (13:25)
[2022-10-24 17:02] VITALS: BP 100/65
== END 2022-10-24 17:10 | disposition home or self-care (01) ==
LOC: ED 08:38 → EDHOLD 08:38 → SUATTDRO 14:42 → MED 16:30
PROVIDERS: ADMIT Internal Medicine; ATTEND Internal Medicine

== ENCOUNTER 2022-12-25 09:50 | Inpatient (IN) ==
[2022-12-25] MEDS ORDERED: Ondansetron 4 mg VIAL 2 MG/ML 2 ml VIAL IV ONE (10:22)
[2022-12-25] MEDS ORDERED: Lactated Ringers 1000 ml BAG 1,000 ML IV ONE ×2 (10:22→12:01)
[2022-12-25 10:26] LABS: ABS Lymphocytes 1.4 10^3/uL (1.0-4.8); ABS Monocytes 0.5 10^3/uL (0.0-0.9); ABS Neutrophils 9.9 10^3/uL (1.5-7.6); Hematocrit 40.1 % (35-45); Hemoglobin 13.7 g/dL (11.5-14.3); Lymphocyte % 12.1 %; Mean Corpuscular Hemoglobin 29.8 pg (27-33); Mean Corpuscular Hgb Conc 34.1 g/dL (31-36); Mean Corpuscular Volume 87.2 fL (80-97); Mean Platelet Volume 7.7 fL (7.5-11.2); Platelet Count 252 10^3/uL (150-450); Red Cell Distribution Width 14.3 % (12-17); White Blood Count 11.9 10^3/uL (3.8-11.8)
[2022-12-25 10:32] LABS: INR 1.08 (0.83-1.13)
[2022-12-25 11:00] LABS: Albumin 3.8 g/dL (3.2-5.2); Albumin/Globulin Ratio 1.3 (1-3); Calcium 9.7 mg/dL (8.6-10.3); Creatinine, Serum 0.97 mg/dL (0.51-0.95); Globulin 2.9 g/dL (2-4); Potassium 3.9 mmol/L (3.5-5.0); Total Bilirubin 0.5 mg/dL (0.2-1.0); Total Protein 6.7 g/dL (6.4-8.9); eGFR CKD-EPI 69.4 (>60)
[2022-12-25 12:10] LABS: High Sensitivity Troponin 1 Hr 3 pg/mL (<15)
[2022-12-25 13:40] LABS: Magnesium 1.8 mg/dL (1.9-2.7)
[2022-12-25 13:56] LABS: Urine Appearance Cloudy; Urine Bilirubin Negative (Negative); Urine Blood Negative (Negative); Urine Color Yellow; Urine Glucose 3+(>=500 mg/dL) (Negative); Urine Ketones 2+ (Negative); Urine Nitrite Negative (Negative); Urine Protein Negative (Negative); Urine Specific Gravity 1.017 (1.002-1.030); Urine Urobilinogen Negative (Negative)
[2022-12-25 14:00] LABS: Urine Bacteria 1+ (Absent); Urine Red Blood Cell Trace(0-2/hpf) (Absent); Urine Squamous Epithelial Cell Present (Absent); Urine White Blood Cell 1+(6-10/hpf) (Absent)
[2022-12-25 15:50] LABS: Venous Bicarbonate HCO3 23.8 mmol/L (24-28)
[2022-12-25] MEDS ORDERED: Magnesium Sulfate 2 gm BAG 2 GM/50 ML BAG IVPB ONE (16:49)
[2022-12-25] MEDS ORDERED: Lactated Ringers 1000 ml BAG 1,000 ML IV SCH (17:00)
[2022-12-25] MEDS ORDERED: Dextrose 50% Syringe 50 ml 25 GM/50 ML SYRINGE IV PUSH PRN (17:58)
[2022-12-25] MEDS ORDERED: Insulin GLARGINE 100 un/ml 10 ml VIAL SUBCUT SCH (21:00)
[2022-12-25] MEDS: Enoxaparin 40 MG/0.4 ML SYR SUBCUT SCH (21:12)
[2022-12-25 21:44] LABS: Osmolality Serum 300 mOsm/kg (275-295)
[2022-12-26 06:38] LABS: Calcium 9.6 mg/dL (8.6-10.3); Creatinine, Serum 0.82 mg/dL (0.51-0.95); Magnesium 1.6 mg/dL (1.9-2.7); Phosphorus 2.2 mg/dL (2.5-5.0); Potassium 4.3 mmol/L (3.5-5.0); eGFR CKD-EPI 84.9 (>60)
[2022-12-26] MEDS ORDERED: Magnesium Sulf 4 GM/100 ML IV 4,000 MG/100 ML BAG IVPB ONE (07:37)
[2022-12-26] MEDS: Insulin GLARGINE 100 un/ml 10 ml VIAL SUBCUT SCH ×2 (08:47→20:27)
[2022-12-26] MEDS ORDERED: Lactated Ringers 1000 ml BAG 1,000 ML IV ONE (09:30)
[2022-12-26] MEDS ORDERED: cefTRIAXone 1 gm/50 mL D5W 1 GM/50 ML BAG IV SCH (13:00)
[2022-12-26 14:36] LABS: Urine Benzodiazepine Screen Presumptive Positive (None Detect); Urine Cannabinoids Screen None Detected (None Detect); Urine Opiates Screen None Detected (None Detect)
[2022-12-26] MEDS: Lactated Ringers 1000 ml BAG 1,000 ML IV SCH (14:56)
[2022-12-26] MEDS ORDERED: Polyethylene Glycol 3350 17 GM PACKET PO PRN (17:29)
[2022-12-26] MEDS ORDERED: Magnesium Hydroxide LIQ 30 ML UDC PO PRN (17:29)
[2022-12-26] MEDS ORDERED: Senna TAB 8.6 mg TAB PO PRN (17:29)
[2022-12-26] MEDS: Enoxaparin 40 MG/0.4 ML SYR SUBCUT SCH (20:27)
[2022-12-26] MEDS: Magnesium Hydroxide LIQ 30 ML UDC PO SCH (20:29)
[2022-12-27] MEDS: Lactated Ringers 1000 ml BAG 1,000 ML IV SCH ×2 (02:13→11:12)
[2022-12-27 06:21] LABS: ABS Lymphocytes 0.8 10^3/uL (1.0-4.8); ABS Monocytes 0.2 10^3/uL (0.0-0.9); ABS Neutrophils 2.3 10^3/uL (1.5-7.6); ABS Nucleated RBC 0.01 10^3/ul; Hematocrit 31.6 % (35-45); Lymphocyte % 24.9 %; Mean Corpuscular Hemoglobin 29.9 pg (27-33); Mean Corpuscular Hgb Conc 34.8 g/dL (31-36); Mean Corpuscular Volume 85.8 fL (80-97); Mean Platelet Volume 7.8 fL (7.5-11.2); Nucleated Red Blood Cells % 0.3 %/100WBC (0.0-0.8); Platelet Count 144 10^3/uL (150-450); Red Blood Count 3.68 10^6/uL (3.63-4.92); Red Cell Distribution Width 14.1 % (12-17); White Blood Count 3.4 10^3/uL (3.8-11.8)
[2022-12-27 06:43] LABS: Anion Gap 6 mmol/L (2-16); Blood Urea Nitrogen 11 mg/dL (6-24); C Reactive Protein 79.37 mg/L (<8.01); CO2 Carbon Dioxide 30 mmol/L (22-32); Calcium 8.1 mg/dL (8.6-10.3); Chloride 97 mmol/L (101-111); Creatinine, Serum 0.51 mg/dL (0.51-0.95); Glucose 87 mg/dL (70-100); Lipase < 10 U/L (11.0-82.0); Magnesium 1.6 mg/dL (1.9-2.7); Potassium 3.3 mmol/L (3.5-5.0); Sodium 133 mmol/L (135-145); eGFR CKD-EPI 110.9 (>60)
[2022-12-27] MEDS: Insulin GLARGINE 100 un/ml 10 ml VIAL SUBCUT SCH ×2 (10:00→21:26)
[2022-12-27] MEDS: cefTRIAXone 2 gm/50 mL D5W 2 GM/50 ML BAG IV SCH (10:03)
[2022-12-27] MEDS: Magnesium Hydroxide LIQ 30 ML UDC PO SCH ×2 (10:19→22:58)
[2022-12-27] MEDS: Enoxaparin 40 MG/0.4 ML SYR SUBCUT SCH (21:25)
[2022-12-28 06:52] LABS: ABS Lymphocytes 1.3 10^3/uL (1.0-4.8); ABS Monocytes 0.4 10^3/uL (0.0-0.9); ABS Neutrophils 2.2 10^3/uL (1.5-7.6); Eosinophil % 0.3 %; Hematocrit 30.3 % (35-45); Hemoglobin 10.5 g/dL (11.5-14.3); Lymphocyte % 33.1 %; Mean Corpuscular Hemoglobin 29.8 pg (27-33); Mean Corpuscular Hgb Conc 34.8 g/dL (31-36); Mean Corpuscular Volume 85.6 fL (80-97); Mean Platelet Volume 8.4 fL (7.5-11.2); Nucleated Red Blood Cells % 0.1 %/100WBC (0.0-0.8); Platelet Count 131 10^3/uL (150-450); Red Blood Count 3.53 10^6/uL (3.63-4.92); Red Cell Distribution Width 14.2 % (12-17); White Blood Count 3.9 10^3/uL (3.8-11.8)
[2022-12-28 07:32] LABS: Calcium 8.4 mg/dL (8.6-10.3); Creatinine, Serum 0.53 mg/dL (0.51-0.95); Magnesium 1.8 mg/dL (1.9-2.7); Potassium 3.4 mmol/L (3.5-5.0); eGFR CKD-EPI 109.8 (>60)
[2022-12-28] MEDS: cefTRIAXone 2 gm/50 mL D5W 2 GM/50 ML BAG IV SCH (09:43)
[2022-12-28] MEDS: Magnesium Hydroxide LIQ 30 ML UDC PO SCH (09:46)
[2022-12-28] MEDS: Insulin GLARGINE 100 un/ml 10 ml VIAL SUBCUT SCH (09:47)
[2022-12-28 11:28] VITALS: BP 141/75
== END 2022-12-28 11:00 | disposition home or self-care (01) | DRG 720 ==
LOC: ED 09:50 → EDHOLD 09:50 → SUATTDRO 16:09 → MEDTELE 18:04
PROVIDERS: ADMIT Student in an Organized Health Care Education/Training Program; ATTEND Internal Medicine